=== PATIENT | female | born 1935 | race Caucasian/White ===

== ENCOUNTER 2018-03-03 15:58 | Inpatient (IN) | payer MEDICARE, BC ==
[~2018-03-03] VITALS: Ht 172.7 cm; Wt 89.8 kg
[~2018-03-03 15:58] MED LIST: ALLO300T11 PO; CARV6.253 PO; CLOP75TA33 PO; LYR75C PO; METF500T7 PO; NORCO10T PO; SYN0.025T PO
[2018-03-03] MEDS ORDERED: normal saline 1000ML IV soln IV ONE (16:05)
[2018-03-03] MEDS ORDERED: morphine 4 MG/ML inj SYRINge IV ONE ×2 (17:10→18:45)
[2018-03-03] MEDS ORDERED: ondansetron/PF 4mg/2ml inj IV ONE (17:10)
[2018-03-03 17:11] LABS: BASOPHILS % (AUTO) 0 % (0-1); EOSINOPHILS % (AUTO) 0 % (0-6); HEMATOCRIT 39.4 % (35.0-45.0); HEMOGLOBIN 13.4 g/dl (12.0-16.0); LYMPHOCYTES # (AUTO) 1.3 X10'3 (1.1-4.8); MEAN CORPUSCULAR HEMOGLOBIN 29.1 PG (27.0-31.0); MEAN CORPUSCULAR HGB CONC 34.1 % (33.0-36.5); MEAN CORPUSCULAR VOLUME 85.4 FL (78-98); MEAN PLATELET VOLUME 8.7 FL (7.4-10.4); MONOCYTES # (AUTO) 0.7 X10'3 (0-0.9); MONOCYTES % (AUTO) 5.6 % (2-12); NEUTROPHILS # (AUTO) 10.6 X10'3 (1.8-7.7); NEUTROPHILS % (AUTO) 84.4 % (42-75); PLATELET COUNT 275 X10'3 (140-440); RED BLOOD COUNT 4.61 X10'6 (4.20-5.60); RED CELL DISTRIBUTION WIDTH 15.7 % (11.5-14.5); WHITE BLOOD COUNT 12.6 X10'3 (4.5-11.0)
[2018-03-03 17:15] LABS: PARTIAL THROMBOPLASTIN TIME 28 SECONDS (22-32); PROTHROMBIN TIME 10.8 SECONDS (9.0-12.0)
[2018-03-03 17:22] LABS: ALANINE AMINOTRANSFERASE 26 U/L (12-78); ALBUMIN 3.3 G/DL (3.4-5.0); ALBUMIN/GLOBULIN RATIO 0.8 (1.1-1.5); ALKALINE PHOSPHATASE 86 IU/L (46-116); ANION GAP 14 (8-16); ASPARTATE AMINO TRANSFERASE 36 U/L (10-37); BILIRUBIN,TOTAL 0.9 MG/DL (0.1-1.0); BLOOD UREA NITROGEN 23 MG/DL (7-18); CALCIUM 9.3 MG/DL (8.5-10.1); CHLORIDE 105 MMOL/L (99-107); CREATINE KINASE 763 U/L (26-192); GLUCOSE 275 MG/DL (70-104); MAGNESIUM 1.5 MG/DL (1.5-2.4); POTASSIUM 3.4 MMOL/L (3.5-5.1); SODIUM 143 MMOL/L (135-145); TOTAL CARBON DIOXIDE 24.4 MMOL/L (24-32); TOTAL PROTEIN 7.3 G/DL (6.4-8.2); eGFR 53 ML/MIN
[2018-03-03 17:38] LABS: CLARITY,URINE CLEAR (Clear); COLOR,URINE YELLOW (Yellow); GLUCOSE, URINE 250 mg/dl (Neg); KETONES,URINE 40 mg/dl (Neg); LEUKOCYTE ESTERASE ,URINE NEGATIVE (Neg); NITRITES, URINE NEGATIVE (Neg); OCCULT BLOOD,URINE MODERATE (Neg); PH,URINE 5.5 (4.8-8.0); PROTEIN,URINE 100 mg/dl (Neg); UROBILINOGEN,URINE 0.2 E.U/dL (0.2-1.0)
[2018-03-03 17:45] LABS: UA COLLECTION TYPE FOLEY CATH
[2018-03-03 17:52] LABS: RBC,URINE 0-2 /HPF (0-2); WBC,URINE 0-4 /HPF (0-4)
[2018-03-03 17:53] LABS: AMORPHOUS URATES 1+; BACTERIA,URINE NONE SEEN /HPF (Neg); SQUAMOUS EPITHELIAL CELL,UR FEW /LPF (FEW)
[2018-03-03] MEDS ORDERED: METF500T6 PO (18:12)
[2018-03-03] MEDS ORDERED: CLOP75TA35 PO (18:14)
[2018-03-03] MEDS ORDERED: ACET500C5 PO (18:16)
[2018-03-03] MEDS ORDERED: SIMV20TA5 PO (18:17)
[2018-03-03] MEDS ORDERED: CEPH500C2 PO (18:19)
[2018-03-03] MEDS ORDERED: LEVO50TA8 PO (18:22)
[2018-03-03] MEDS ORDERED: magnesium hydroxide 30ml (MOM) UD suspension PO PRN (19:35)
[2018-03-03] MEDS ORDERED: mag hydrox/Alum hydrox/simeth 30ml oral suspension PO PRN (19:35)
[2018-03-03] MEDS ORDERED: ondansetron/PF 4mg/2ml inj IV PRN (19:35)
[2018-03-03] MEDS ORDERED: acetaminophen 325mg tablet PO PRN (19:35)
[2018-03-03] MEDS ORDERED: morphine 4 MG/ML inj SYRINge IV PRN (19:35)
[2018-03-03] MEDS ORDERED: MESSAGE TO PHARMACY PO ONE (19:40)
[2018-03-03] MEDS ORDERED: dextrose ORAL solution 15 GM/59 ML bottle PO PRN (19:40)
[2018-03-03] MEDS ORDERED: dextrose 50%-water 50ml dispensing syringe IV PRN ×2 (19:40)
[2018-03-03] MEDS ORDERED: non-formulary drug (Acetaminophen (Mapap) 1 CAP) PO PRN (19:40)
[2018-03-03] MEDS ORDERED: glucagon, human recombinant 1mg kit SUBCUT PRN (19:40)
[2018-03-03] MEDS: normal saline 1000ml 1,000 ML IV SCH (19:44)
[2018-03-03 20:50] VITALS: BP 157/67
[2018-03-03] MEDS: carvedilol 6.25mg tablet PO SCH (21:13)
[2018-03-03] MEDS: atorvastatin 20mg tablet PO SCH (21:13)
[2018-03-03] MEDS: heparin, porcine 5000 units/ml vial SQ SCH (21:13)
[2018-03-03] MEDS: allopurinol 300 MG tablet PO SCH (21:13)
[2018-03-03] MEDS: pregabalin 75mg capsule PO SCH (21:13)
[2018-03-03 22:00] VITALS: BP 123/61
[2018-03-03] MEDS: insulin glargine (Lantus) pen - multi-dose SQ SCH (22:04)
[2018-03-04] MEDS: cephalexin 500mg capsule PO SCH ×3 (00:16→17:28)
[2018-03-04 05:00] VITALS: BP 123/61
[2018-03-04 05:37] LABS: BASOPHILS % (AUTO) 0.3 % (0-1); EOSINOPHILS % (AUTO) 0 % (0-6); HEMATOCRIT 33.8 % (35.0-45.0); HEMOGLOBIN 11.4 g/dl (12.0-16.0); LYMPHOCYTES # (AUTO) 1.4 X10'3 (1.1-4.8); LYMPHOCYTES % (AUTO) 12.6 % (21-51); MEAN CORPUSCULAR HEMOGLOBIN 28.5 PG (27.0-31.0); MEAN CORPUSCULAR HGB CONC 33.7 % (33.0-36.5); MEAN CORPUSCULAR VOLUME 84.7 FL (78-98); MONOCYTES # (AUTO) 0.8 X10'3 (0-0.9); MONOCYTES % (AUTO) 7.3 % (2-12); NEUTROPHILS # (AUTO) 9.1 X10'3 (1.8-7.7); NEUTROPHILS % (AUTO) 79.8 % (42-75); PLATELET COUNT 227 X10'3 (140-440); RED BLOOD COUNT 3.99 X10'6 (4.20-5.60); RED CELL DISTRIBUTION WIDTH 15.5 % (11.5-14.5); WHITE BLOOD COUNT 11.4 X10'3 (4.5-11.0)
[2018-03-04 05:51] LABS: ALANINE AMINOTRANSFERASE 27 U/L (12-78); ALBUMIN 2.6 G/DL (3.4-5.0); ALBUMIN/GLOBULIN RATIO 0.8 (1.1-1.5); ALKALINE PHOSPHATASE 73 IU/L (46-116); ANION GAP 8 (8-16); ASPARTATE AMINO TRANSFERASE 26 U/L (10-37); BILIRUBIN,TOTAL 0.7 MG/DL (0.1-1.0); BLOOD UREA NITROGEN 27 MG/DL (7-18); BUN/CREATININE RATIO 26.5 (6.6-38.0); CALCIUM 8.3 MG/DL (8.5-10.1); CHLORIDE 110 MMOL/L (99-107); CREATININE 1.02 MG/DL (0.40-0.90); GLUCOSE 255 MG/DL (70-104); POTASSIUM 3.5 MMOL/L (3.5-5.1); SODIUM 144 MMOL/L (135-145); TOTAL CARBON DIOXIDE 26.1 MMOL/L (24-32); eGFR 52 ML/MIN
[2018-03-04 06:06] LABS: HEMOGLOBIN A1C 7.9 % (4.5-6.2)
[2018-03-04] MEDS: clopidogrel 75mg tablet PO SCH (07:36)
[2018-03-04] MEDS: levoTHYROXINE 25mcg tablet PO SCH (07:36)
[2018-03-04] MEDS: heparin, porcine 5000 units/ml vial SQ SCH ×2 (07:37→20:25)
[2018-03-04] MEDS: normal saline 1000ml 1,000 ML IV SCH ×3 (07:54→17:29)
[2018-03-04] MEDS: insulin Lispro (HumaLOG) vial - multi-dose SQ SCH ×3 (09:15→19:19)
[2018-03-04 10:00] VITALS: BP 126/52
[2018-03-04] MEDS ORDERED: normal saline 500ml IV soln 500 ML IV ONE (14:10)
[2018-03-04] MEDS: HYDROcodone/acetaminophen 5mg/325mg tablet PO PRN (17:28)
[2018-03-04 18:00] VITALS: BP 156/66
[2018-03-04] MEDS: lactobacillus rhamnosus 10,000 MMU CELLS/CAPSULE PO SCH (20:24)
[2018-03-04] MEDS: pregabalin 75mg capsule PO SCH (20:24)
[2018-03-04] MEDS: atorvastatin 20mg tablet PO SCH (20:24)
[2018-03-04] MEDS: carvedilol 6.25mg tablet PO SCH (20:24)
[2018-03-04] MEDS: allopurinol 300 MG tablet PO SCH (20:24)
[2018-03-04] MEDS: nystatin 15 GM powder TP SCH (20:25)
[2018-03-04] MEDS: insulin glargine (Lantus) pen - multi-dose SQ SCH (21:14)
[2018-03-04 22:00] VITALS: BP 117/64
[2018-03-05] MEDS: cephalexin 500mg capsule PO SCH ×3 (00:15→16:07)
[2018-03-05] MEDS: normal saline 1000ml 1,000 ML IV SCH ×3 (01:07→17:45)
[2018-03-05 05:00] VITALS: BP 113/38
[2018-03-05 06:41] LABS: ALANINE AMINOTRANSFERASE 48 U/L (12-78); ALBUMIN 2.1 G/DL (3.4-5.0); ALBUMIN/GLOBULIN RATIO 0.7 (1.1-1.5); ALKALINE PHOSPHATASE 101 IU/L (46-116); ANION GAP 9 (8-16); ASPARTATE AMINO TRANSFERASE 52 U/L (10-37); BILIRUBIN,TOTAL 0.6 MG/DL (0.1-1.0); BLOOD UREA NITROGEN 34 MG/DL (7-18); BUN/CREATININE RATIO 28.6 (6.6-38.0); CALCIUM 7.2 MG/DL (8.5-10.1); CHLORIDE 107 MMOL/L (99-107); CREATININE 1.19 MG/DL (0.40-0.90); GLUCOSE 109 MG/DL (70-104); POTASSIUM 3.3 MMOL/L (3.5-5.1); SODIUM 139 MMOL/L (135-145); TOTAL CARBON DIOXIDE 23.3 MMOL/L (24-32); TOTAL PROTEIN 5.2 G/DL (6.4-8.2); eGFR 43 ML/MIN
[2018-03-05 07:22] LABS: HEMOGLOBIN 10.1 g/dl (12.0-16.0); WHITE BLOOD COUNT 8.8 X10'3 (4.5-11.0)
[2018-03-05 07:23] LABS: BASOPHILS % (AUTO) 0.4 % (0-1); EOSINOPHILS # (AUTO) 0.3 X10'3 (0-0.9); EOSINOPHILS % (AUTO) 3.5 % (0-6); HEMATOCRIT 30.3 % (35.0-45.0); LYMPHOCYTES % (AUTO) 22.5 % (21-51); MEAN CORPUSCULAR HEMOGLOBIN 28.8 PG (27.0-31.0); MEAN CORPUSCULAR HGB CONC 33.3 % (33.0-36.5); MEAN CORPUSCULAR VOLUME 86.5 FL (78-98); MONOCYTES # (AUTO) 0.8 X10'3 (0-0.9); MONOCYTES % (AUTO) 8.6 % (2-12); NEUTROPHILS # (AUTO) 5.7 X10'3 (1.8-7.7); PLATELET COUNT 193 X10'3 (140-440); RED CELL DISTRIBUTION WIDTH 15.7 % (11.5-14.5)
[2018-03-05] MEDS: levoTHYROXINE 25mcg tablet PO SCH (07:50)
[2018-03-05] MEDS: lactobacillus rhamnosus 10,000 MMU CELLS/CAPSULE PO SCH ×2 (07:51→19:59)
[2018-03-05] MEDS: clopidogrel 75mg tablet PO SCH (07:51)
[2018-03-05] MEDS: heparin, porcine 5000 units/ml vial SQ SCH ×2 (07:52→20:00)
[2018-03-05 08:51] LABS: CREATINE KINASE 207 U/L (26-192)
[2018-03-05] MEDS: insulin Lispro (HumaLOG) vial - multi-dose SQ SCH ×3 (09:13→18:56)
[2018-03-05 10:00] VITALS: BP 117/60
[2018-03-05] MEDS: nystatin 15 GM powder TP SCH ×3 (11:07→21:23)
[2018-03-05] MEDS: HYDROcodone/acetaminophen 5mg/325mg tablet PO PRN ×2 (12:22→20:01)
[2018-03-05] MEDS: NUT.TX.GLUC.INTOLER,LAC-FR,REG (BOOST GLUCOSE CONTROL) 237 ML PO SCH ×2 (13:00→18:40)
[2018-03-05 18:00] VITALS: BP 166/86
[2018-03-05] MEDS ORDERED: potassium Cl 40MEQ/NS 500ml 500 ML IV PRN ×2 (18:45)
[2018-03-05] MEDS ORDERED: potassium Cl 20 mEq SR tablet PO PRN (18:45)
[2018-03-05] MEDS ORDERED: magnesium 1gm/100ml D5W IVPB 100 ML IV PRN (18:45)
[2018-03-05] MEDS ORDERED: magnesium Cl slow-release 64mg tablet PO PRN (18:45)
[2018-03-05] MEDS: atorvastatin 20mg tablet PO SCH (19:59)
[2018-03-05] MEDS: carvedilol 6.25mg tablet PO SCH (19:59)
[2018-03-05] MEDS: pregabalin 75mg capsule PO SCH (19:59)
[2018-03-05] MEDS: potassium Cl 20 mEq SR tablet PO PRN (20:02)
[2018-03-05] MEDS: insulin glargine (Lantus) pen - multi-dose SQ SCH (21:25)
[2018-03-05 22:04] VITALS: BP 125/45
[2018-03-06] MEDS: cephalexin 500mg capsule PO SCH ×2 (00:07→07:10)
[2018-03-06] MEDS: potassium Cl 20 mEq SR tablet PO PRN ×2 (00:07→04:32)
[2018-03-06] MEDS: normal saline 1000ml 1,000 ML IV SCH ×4 (00:20→21:12)
[2018-03-06 00:35] LABS: CLARITY,URINE SLIGHTLY CLOUDY (Clear); COLOR,URINE YELLOW (Yellow); GLUCOSE, URINE NEGATIVE (Neg); KETONES,URINE NEGATIVE (Neg); LEUKOCYTE ESTERASE ,URINE SMALL (Neg); NITRITES, URINE NEGATIVE (Neg); OCCULT BLOOD,URINE LARGE (Neg); PROTEIN,URINE 30 mg/dl (Neg)
[2018-03-06 00:43] LABS: UA COLLECTION TYPE FOLEY CATH
[2018-03-06 00:44] LABS: BACTERIA,URINE FEW /HPF (Neg); RENAL CELLS, URINE FEW /HPF; SQUAMOUS EPITHELIAL CELL,UR FEW /LPF (FEW); WBC,URINE 30-50 /HPF (0-4)
[2018-03-06 05:25] LABS: BASOPHILS % (AUTO) 0.3 % (0-1); EOSINOPHILS # (AUTO) 0.3 X10'3 (0-0.9); EOSINOPHILS % (AUTO) 3.2 % (0-6); HEMATOCRIT 34.2 % (35.0-45.0); HEMOGLOBIN 11.4 g/dl (12.0-16.0); LYMPHOCYTES # (AUTO) 1.5 X10'3 (1.1-4.8); LYMPHOCYTES % (AUTO) 18.4 % (21-51); MEAN CORPUSCULAR HEMOGLOBIN 28.5 PG (27.0-31.0); MEAN CORPUSCULAR HGB CONC 33.4 % (33.0-36.5); MEAN CORPUSCULAR VOLUME 85.4 FL (78-98); MEAN PLATELET VOLUME 9.3 FL (7.4-10.4); MONOCYTES # (AUTO) 0.7 X10'3 (0-0.9); NEUTROPHILS # (AUTO) 5.6 X10'3 (1.8-7.7); NEUTROPHILS % (AUTO) 69.1 % (42-75); PLATELET COUNT 205 X10'3 (140-440); RED BLOOD COUNT 4.01 X10'6 (4.20-5.60); RED CELL DISTRIBUTION WIDTH 15.6 % (11.5-14.5); WHITE BLOOD COUNT 8.1 X10'3 (4.5-11.0)
[2018-03-06 06:00] VITALS: BP 157/79
[2018-03-06 06:48] LABS: ALANINE AMINOTRANSFERASE 55 U/L (12-78); ALBUMIN 2.2 G/DL (3.4-5.0); ALBUMIN/GLOBULIN RATIO 0.6 (1.1-1.5); ALKALINE PHOSPHATASE 171 IU/L (46-116); ANION GAP 10 (8-16); ASPARTATE AMINO TRANSFERASE 52 U/L (10-37); BILIRUBIN,TOTAL 0.5 MG/DL (0.1-1.0); BLOOD UREA NITROGEN 31 MG/DL (7-18); BUN/CREATININE RATIO 27.9 (6.6-38.0); CALCIUM 7.8 MG/DL (8.5-10.1); CHLORIDE 107 MMOL/L (99-107); CREATININE 1.11 MG/DL (0.40-0.90); GLUCOSE 132 MG/DL (70-104); MAGNESIUM 1.5 MG/DL (1.5-2.4); POTASSIUM 3.9 MMOL/L (3.5-5.1); SODIUM 140 MMOL/L (135-145); TOTAL CARBON DIOXIDE 23.1 MMOL/L (24-32); TOTAL PROTEIN 5.7 G/DL (6.4-8.2); eGFR 47 ML/MIN
[2018-03-06] MEDS: clopidogrel 75mg tablet PO SCH (07:09)
[2018-03-06] MEDS: lactobacillus rhamnosus 10,000 MMU CELLS/CAPSULE PO SCH ×2 (07:09→19:53)
[2018-03-06] MEDS: heparin, porcine 5000 units/ml vial SQ SCH ×2 (07:10→19:54)
[2018-03-06] MEDS: levoTHYROXINE 25mcg tablet PO SCH (07:10)
[2018-03-06] MEDS: nystatin 15 GM powder TP SCH ×3 (07:10→21:12)
[2018-03-06] MEDS: NUT.TX.GLUC.INTOLER,LAC-FR,REG (BOOST GLUCOSE CONTROL) 237 ML PO SCH ×3 (08:47→18:00)
[2018-03-06] MEDS: insulin Lispro (HumaLOG) vial - multi-dose SQ SCH ×3 (08:49→19:03)
[2018-03-06] MEDS: HYDROcodone/acetaminophen 5mg/325mg tablet PO PRN ×4 (10:24→22:34)
[2018-03-06] MEDS: benzocaine/menthol oral lozeng 1 EACH BOX MM PRN ×2 (17:46→19:52)
[2018-03-06 18:00] VITALS: BP 188/86
[2018-03-06 20:52] VITALS: BP 144/44
[2018-03-06] MEDS: carvedilol 6.25mg tablet PO SCH (21:00)
[2018-03-06] MEDS: atorvastatin 20mg tablet PO SCH (21:00)
[2018-03-06] MEDS: pregabalin 75mg capsule PO SCH (21:00)
[2018-03-06] MEDS: insulin glargine (Lantus) pen - multi-dose SQ SCH (21:10)
[2018-03-06 22:00] VITALS: BP 140/57
[2018-03-07] MEDS: normal saline 1000ml 1,000 ML IV SCH (03:29)
[2018-03-07 05:03] LABS: BASOPHILS % (AUTO) 0.7 % (0-1); EOSINOPHILS # (AUTO) 0.3 X10'3 (0-0.9); EOSINOPHILS % (AUTO) 3.5 % (0-6); HEMATOCRIT 33.4 % (35.0-45.0); LYMPHOCYTES % (AUTO) 26.2 % (21-51); MEAN CORPUSCULAR HEMOGLOBIN 28.3 PG (27.0-31.0); MEAN CORPUSCULAR HGB CONC 33.1 % (33.0-36.5); MEAN CORPUSCULAR VOLUME 85.5 FL (78-98); MEAN PLATELET VOLUME 9.3 FL (7.4-10.4); MONOCYTES # (AUTO) 0.7 X10'3 (0-0.9); MONOCYTES % (AUTO) 9.7 % (2-12); NEUTROPHILS # (AUTO) 4.5 X10'3 (1.8-7.7); NEUTROPHILS % (AUTO) 59.9 % (42-75); PLATELET COUNT 249 X10'3 (140-440); RED CELL DISTRIBUTION WIDTH 15.2 % (11.5-14.5); WHITE BLOOD COUNT 7.6 X10'3 (4.5-11.0)
[2018-03-07] MEDS: HYDROcodone/acetaminophen 5mg/325mg tablet PO PRN ×3 (05:28→21:09)
[2018-03-07 05:47] LABS: ALANINE AMINOTRANSFERASE 53 U/L (12-78); ALBUMIN 2.1 G/DL (3.4-5.0); ALBUMIN/GLOBULIN RATIO 0.6 (1.1-1.5); ALKALINE PHOSPHATASE 196 IU/L (46-116); ANION GAP 8 (8-16); ASPARTATE AMINO TRANSFERASE 45 U/L (10-37); BILIRUBIN,TOTAL 0.5 MG/DL (0.1-1.0); BLOOD UREA NITROGEN 22 MG/DL (7-18); BUN/CREATININE RATIO 27.8 (6.6-38.0); CALCIUM 7.9 MG/DL (8.5-10.1); CHLORIDE 108 MMOL/L (99-107); CREATININE 0.79 MG/DL (0.40-0.90); GLUCOSE 108 MG/DL (70-104); MAGNESIUM 1.6 MG/DL (1.5-2.4); POTASSIUM 3.7 MMOL/L (3.5-5.1); SODIUM 140 MMOL/L (135-145); TOTAL CARBON DIOXIDE 24.1 MMOL/L (24-32); TOTAL PROTEIN 5.7 G/DL (6.4-8.2); eGFR 70 ML/MIN
[2018-03-07 06:00] VITALS: BP 152/81
[2018-03-07] MEDS: lactobacillus rhamnosus 10,000 MMU CELLS/CAPSULE PO SCH ×2 (08:22→20:15)
[2018-03-07] MEDS: clopidogrel 75mg tablet PO SCH (08:22)
[2018-03-07] MEDS: NUT.TX.GLUC.INTOLER,LAC-FR,REG (BOOST GLUCOSE CONTROL) 237 ML PO SCH ×3 (08:23→18:00)
[2018-03-07] MEDS: heparin, porcine 5000 units/ml vial SQ SCH ×2 (08:23→20:15)
[2018-03-07] MEDS: nystatin 15 GM powder TP SCH ×3 (08:23→20:15)
[2018-03-07] MEDS: levoTHYROXINE 25mcg tablet PO SCH (08:24)
[2018-03-07] MEDS: insulin Lispro (HumaLOG) vial - multi-dose SQ SCH ×3 (09:06→19:37)
[2018-03-07 10:00] VITALS: BP 179/84
[2018-03-07] MEDS: benzocaine/menthol oral lozeng 1 EACH BOX MM PRN (11:22)
[2018-03-07] MEDS ORDERED: BENZ1LOZ30 MM (15:30)
[2018-03-07 18:17] VITALS: BP 171/70
[2018-03-07] MEDS: carvedilol 6.25mg tablet PO SCH (20:14)
[2018-03-07] MEDS: atorvastatin 20mg tablet PO SCH (20:14)
[2018-03-07] MEDS: pregabalin 75mg capsule PO SCH (20:15)
[2018-03-07] MEDS: insulin glargine (Lantus) pen - multi-dose SQ SCH (21:06)
[2018-03-07 22:14] VITALS: BP 155/62
[2018-03-08] MEDS: HYDROcodone/acetaminophen 5mg/325mg tablet PO PRN ×2 (04:49→14:06)
[2018-03-08 05:55] LABS: BASOPHILS % (AUTO) 0.5 % (0-1); EOSINOPHILS # (AUTO) 0.3 X10'3 (0-0.9); EOSINOPHILS % (AUTO) 3.7 % (0-6); HEMATOCRIT 34.6 % (35.0-45.0); HEMOGLOBIN 11.7 g/dl (12.0-16.0); LYMPHOCYTES # (AUTO) 1.9 X10'3 (1.1-4.8); LYMPHOCYTES % (AUTO) 23.8 % (21-51); MEAN CORPUSCULAR HEMOGLOBIN 28.7 PG (27.0-31.0); MEAN CORPUSCULAR HGB CONC 33.9 % (33.0-36.5); MEAN CORPUSCULAR VOLUME 84.6 FL (78-98); MONOCYTES # (AUTO) 0.8 X10'3 (0-0.9); MONOCYTES % (AUTO) 10.1 % (2-12); NEUTROPHILS # (AUTO) 4.8 X10'3 (1.8-7.7); NEUTROPHILS % (AUTO) 61.9 % (42-75); PLATELET COUNT 281 X10'3 (140-440); RED BLOOD COUNT 4.09 X10'6 (4.20-5.60); RED CELL DISTRIBUTION WIDTH 15.1 % (11.5-14.5); WHITE BLOOD COUNT 7.8 X10'3 (4.5-11.0)
[2018-03-08 06:00] VITALS: BP 185/78
[2018-03-08 06:14] LABS: ALANINE AMINOTRANSFERASE 48 U/L (12-78); ALBUMIN 2.2 G/DL (3.4-5.0); ALBUMIN/GLOBULIN RATIO 0.6 (1.1-1.5); ALKALINE PHOSPHATASE 214 IU/L (46-116); ANION GAP 8 (8-16); ASPARTATE AMINO TRANSFERASE 29 U/L (10-37); BILIRUBIN,TOTAL 0.4 MG/DL (0.1-1.0); BLOOD UREA NITROGEN 16 MG/DL (7-18); CALCIUM 8.1 MG/DL (8.5-10.1); CHLORIDE 107 MMOL/L (99-107); GLUCOSE 109 MG/DL (70-104); MAGNESIUM 1.6 MG/DL (1.5-2.4); POTASSIUM 3.7 MMOL/L (3.5-5.1); SODIUM 140 MMOL/L (135-145); TOTAL CARBON DIOXIDE 24.8 MMOL/L (24-32); TOTAL PROTEIN 5.9 G/DL (6.4-8.2); eGFR 69 ML/MIN
[2018-03-08] MEDS: lactobacillus rhamnosus 10,000 MMU CELLS/CAPSULE PO SCH ×2 (07:24→20:59)
[2018-03-08] MEDS: clopidogrel 75mg tablet PO SCH (07:24)
[2018-03-08] MEDS: levoTHYROXINE 25mcg tablet PO SCH (07:24)
[2018-03-08] MEDS: heparin, porcine 5000 units/ml vial SQ SCH ×2 (07:25→20:59)
[2018-03-08] MEDS: NUT.TX.GLUC.INTOLER,LAC-FR,REG (BOOST GLUCOSE CONTROL) 237 ML PO SCH ×3 (08:13→15:46)
[2018-03-08] MEDS: nystatin 15 GM powder TP SCH ×3 (08:13→21:05)
[2018-03-08 11:40] VITALS: BP 133/85
[2018-03-08] MEDS: insulin Lispro (HumaLOG) vial - multi-dose SQ SCH ×2 (13:34→19:09)
[2018-03-08 18:33] VITALS: BP 109/73
[2018-03-08] MEDS: atorvastatin 20mg tablet PO SCH (20:44)
[2018-03-08] MEDS: pregabalin 75mg capsule PO SCH (20:59)
[2018-03-08] MEDS: carvedilol 6.25mg tablet PO SCH (20:59)
[2018-03-08] MEDS: insulin glargine (Lantus) pen - multi-dose SQ SCH (21:05)
[2018-03-08] MEDS: benzocaine/menthol oral lozeng 1 EACH BOX MM PRN (21:06)
[2018-03-09 05:00] VITALS: BP 154/70
[2018-03-09 06:07] LABS: MAGNESIUM 1.6 MG/DL (1.5-2.4); POTASSIUM 3.6 MMOL/L (3.5-5.1)
[2018-03-09] MEDS: NUT.TX.GLUC.INTOLER,LAC-FR,REG (BOOST GLUCOSE CONTROL) 237 ML PO SCH ×3 (08:00→18:11)
[2018-03-09] MEDS: lactobacillus rhamnosus 10,000 MMU CELLS/CAPSULE PO SCH ×2 (09:04→20:48)
[2018-03-09] MEDS: nystatin 15 GM powder TP SCH ×3 (09:05→20:48)
[2018-03-09] MEDS: clopidogrel 75mg tablet PO SCH (09:05)
[2018-03-09] MEDS: HYDROcodone/acetaminophen 5mg/325mg tablet PO PRN ×3 (09:05→21:21)
[2018-03-09] MEDS: heparin, porcine 5000 units/ml vial SQ SCH ×2 (09:06→20:48)
[2018-03-09] MEDS: levoTHYROXINE 25mcg tablet PO SCH (09:12)
[2018-03-09] MEDS: insulin Lispro (HumaLOG) vial - multi-dose SQ SCH ×3 (09:51→18:55)
[2018-03-09 10:00] VITALS: BP 168/59
[2018-03-09 18:00] VITALS: BP 165/54
[2018-03-09] MEDS: atorvastatin 20mg tablet PO SCH (20:13)
[2018-03-09] MEDS: pregabalin 75mg capsule PO SCH (20:48)
[2018-03-09] MEDS: carvedilol 6.25mg tablet PO SCH (20:48)
[2018-03-09] MEDS: insulin glargine (Lantus) pen - multi-dose SQ SCH (20:53)
[2018-03-09] MEDS: dextrose ORAL solution 15 GM/59 ML bottle PO PRN ×2 (20:54→21:15)
[2018-03-09] MEDS: benzocaine/menthol oral lozeng 1 EACH BOX MM PRN (21:15)
[2018-03-09 22:15] VITALS: BP 141/56
[2018-03-10 05:00] VITALS: BP 155/69
[2018-03-10 05:59] LABS: MAGNESIUM 1.5 MG/DL (1.5-2.4); POTASSIUM 3.4 MMOL/L (3.5-5.1)
[2018-03-10] MEDS: lactobacillus rhamnosus 10,000 MMU CELLS/CAPSULE PO SCH (07:52)
[2018-03-10] MEDS: levoTHYROXINE 25mcg tablet PO SCH (07:52)
[2018-03-10] MEDS: clopidogrel 75mg tablet PO SCH (07:52)
[2018-03-10] MEDS: heparin, porcine 5000 units/ml vial SQ SCH (07:58)
[2018-03-10] MEDS: NUT.TX.GLUC.INTOLER,LAC-FR,REG (BOOST GLUCOSE CONTROL) 237 ML PO SCH (08:00)
[2018-03-10] MEDS: nystatin 15 GM powder TP SCH ×2 (08:00→13:23)
[2018-03-10] MEDS: HYDROcodone/acetaminophen 5mg/325mg tablet PO PRN ×3 (08:02→16:57)
[2018-03-10 10:00] VITALS: BP 177/70
[2018-03-10] MEDS: insulin Lispro (HumaLOG) vial - multi-dose SQ SCH ×2 (10:15→12:54)
== END 2018-03-10 17:00 | DRG 682 ==
LOC: ER 15:58 → ED HOLD 19:35 → ORTHO 4S 20:40
PROVIDERS: ADMIT Internal Medicine; ATTEND Family Medicine
DX: N17.9 Acute kidney failure, unspecified (principal); G93.40 Encephalopathy, unspecified; L03.116 Cellulitis of left lower limb; M62.82 Rhabdomyolysis; E78.00 Pure hypercholesterolemia, unspecified; G89.29 Other chronic pain; M19.90 Unspecified osteoarthritis, unspecified site; M25.561 Pain in right knee; M25.562 Pain in left knee; E03.9 Hypothyroidism, unspecified; R09.02 Hypoxemia; I10 Essential (primary) hypertension; W01.0XXA Fall on same level from slipping, tripping and stumbling without subsequent striking against object, initial encounter; E11.9 Type 2 diabetes mellitus without complications; E86.0 Dehydration; I25.10 Atherosclerotic heart disease of native coronary artery without angina pectoris; J04.0 Acute laryngitis; M10.9 Gout, unspecified; M79.7 Fibromyalgia; Z60.2 Problems related to living alone; Z99.3 Dependence on wheelchair; Z90.49 Acquired absence of other specified parts of digestive tract; Z88.1 Allergy status to other antibiotic agents; Z88.6 Allergy status to analgesic agent; Z79.84 Long term (current) use of oral hypoglycemic drugs; Z79.02 Long term (current) use of antithrombotics/antiplatelets; Z79.899 Other long term (current) drug therapy; Z87.891 Personal history of nicotine dependence; Z86.73 Personal history of transient ischemic attack (TIA), and cerebral infarction without residual deficits; Z81.8 Family history of other mental and behavioral disorders; Y93.89 Activity, other specified; Y92.091 Bathroom in other non-institutional residence as the place of occurrence of the external cause; Y99.8 Other external cause status
CPT/HCPCS: 36415; 70450; 70490; 70544; 70551; 71045; 72125; 72170; 73560; 76775; 80053; 81001; 82550; 82607; 82948; 83036; 83605; 83735; 84132; 84145; 84443; 85025; 85610; 85730; 87040; 87070; 93005; 96361; 96374; 96375; 96376; 97110; 97162; 97530; 99285; A4315; A4353; A4565; A6209; A6212; A6213; J1644; J1815; J2270; J2405; J7030

== ENCOUNTER 2018-03-25 17:00 | Inpatient (IN) | payer MEDICARE, BC ==
[~2018-03-25] VITALS: Ht 152.4 cm; Wt 118.2 kg
[~2018-03-25 17:00] MED LIST changes: +ACET500C5 PO; +BENZ1LOZ30 MM; -CLOP75TA33 PO; +CLOP75TA35 PO; +LEVO50TA8 PO; +METF500T6 PO; -METF500T7 PO; -NORCO10T PO; +SIMV20TA5 PO; -SYN0.025T PO
[2018-03-25] MEDS ORDERED: normal saline 1000ml 1,000 ML IV ONE ×2 (18:36→19:30)
[2018-03-25 19:07] LABS: BASOPHILS % (AUTO) 0 % (0-1); EOSINOPHILS # (AUTO) 0.3 X10'3 (0-0.9); HEMATOCRIT 41.6 % (35.0-45.0); LYMPHOCYTES # (AUTO) 1.6 X10'3 (1.1-4.8); LYMPHOCYTES % (AUTO) 16.8 % (21-51); MEAN CORPUSCULAR HEMOGLOBIN 28.5 PG (27.0-31.0); MEAN CORPUSCULAR HGB CONC 33.5 % (33.0-36.5); MEAN PLATELET VOLUME 8.3 FL (7.4-10.4); MONOCYTES # (AUTO) 0.7 X10'3 (0-0.9); MONOCYTES % (AUTO) 7.2 % (2-12); PLATELET COUNT 273 X10'3 (140-440); RED CELL DISTRIBUTION WIDTH 16.4 % (11.5-14.5); WHITE BLOOD COUNT 9.6 X10'3 (4.5-11.0)
[2018-03-25 19:19] LABS: PARTIAL THROMBOPLASTIN TIME 27 SECONDS (22-32); PROTHROMBIN TIME 10.6 SECONDS (9.0-12.0)
[2018-03-25 19:24] LABS: ALANINE AMINOTRANSFERASE 28 U/L (12-78); ALBUMIN 3.6 G/DL (3.4-5.0); ALBUMIN/GLOBULIN RATIO 0.9 (1.1-1.5); ALKALINE PHOSPHATASE 109 IU/L (46-116); ANION GAP 13 (8-16); ASPARTATE AMINO TRANSFERASE 32 U/L (10-37); BILIRUBIN,TOTAL 0.7 MG/DL (0.1-1.0); BLOOD UREA NITROGEN 12 MG/DL (7-18); BUN/CREATININE RATIO 11.9 (6.6-38.0); CALCIUM 9.3 MG/DL (8.5-10.1); CHLORIDE 100 MMOL/L (99-107); CREATININE 1.01 MG/DL (0.40-0.90); ETHANOL < 0.010 GM/DL (0.0-0.010); GLUCOSE 133 MG/DL (70-104); LIPASE 137 U/L (73-393); MAGNESIUM 1.4 MG/DL (1.5-2.4); POTASSIUM 3.6 MMOL/L (3.5-5.1); SODIUM 141 MMOL/L (135-145); TOTAL CARBON DIOXIDE 28.1 MMOL/L (24-32); TOTAL PROTEIN 7.7 G/DL (6.4-8.2); eGFR 52 ML/MIN
[2018-03-25] MEDS ORDERED: normal saline 1000ML IV soln IVB ONE (19:30)
[2018-03-25] MEDS ORDERED: PREGABALIN 75 MG (20:15)
[2018-03-25] MEDS ORDERED: METFORMIN HCL 500 MG TABLET (20:15)
[2018-03-25] MEDS ORDERED: SANTYL OINTMENT (20:15)
[2018-03-25] MEDS ORDERED: LISINOPRIL 10 MG TAB (20:15)
[2018-03-25] MEDS ORDERED: CLOPIDOGREL 75 MG TABLET (20:15)
[2018-03-25] MEDS ORDERED: CARVEDILOL (20:15)
[2018-03-25] MEDS ORDERED: temazepam 15mg capsule PO PRN (21:00)
[2018-03-25] MEDS ORDERED: mag hydrox/Alum hydrox/simeth 30ml oral suspension PO PRN (21:35)
[2018-03-25] MEDS ORDERED: magnesium hydroxide 30ml (MOM) UD suspension PO PRN (21:35)
[2018-03-25] MEDS ORDERED: non-formulary drug (Acetaminophen (Mapap) 1 CAP) PO PRN (21:35)
[2018-03-25] MEDS ORDERED: acetaminophen 325mg tablet PO PRN ×2 (21:35)
[2018-03-25] MEDS ORDERED: ondansetron/PF 4mg/2ml inj IV PRN (21:35)
[2018-03-25 22:48] LABS: CLARITY,URINE CLOUDY (Clear); COLOR,URINE YELLOW (Yellow); GLUCOSE, URINE NEGATIVE (Neg); KETONES,URINE 40 mg/dl (Neg); LEUKOCYTE ESTERASE ,URINE LARGE (Neg); NITRITES, URINE POSITIVE (Neg); OCCULT BLOOD,URINE SMALL (Neg); PROTEIN,URINE TRACE mg/dl (Neg); UROBILINOGEN,URINE 0.2 E.U/dL (0.2-1.0)
[2018-03-25 23:03] LABS: UA COLLECTION TYPE STRAIGHT CATH; WBC,URINE TNTC /HPF (0-4)
[2018-03-25 23:04] LABS: BACTERIA,URINE 4+ /HPF (Neg); SQUAMOUS EPITHELIAL CELL,UR FEW /LPF (FEW)
[2018-03-25] MEDS ORDERED: CefTRIAXone/D5W-Rocephin 1gm 50 ML IV SCH (23:20)
[2018-03-25] MEDS ORDERED: CefTRIAXone 2gm/D5W 50ml 50 ML IV ONE (23:30)
[2018-03-25 23:50] VITALS: BP 190/71
[2018-03-26] MEDS: carvedilol 6.25mg tablet PO SCH ×2 (00:11→20:05)
[2018-03-26] MEDS: CefTRIAXone/D5W-Rocephin 1gm 50 ML IV SCH ×2 (00:12→07:42)
[2018-03-26 07:10] VITALS: BP 181/72
[2018-03-26] MEDS: levoTHYROXINE 25mcg tablet PO SCH (07:38)
[2018-03-26] MEDS: clopidogrel 75mg tablet PO SCH (07:38)
[2018-03-26] MEDS: metFORMIN 500mg tablet PO SCH ×3 (07:43→16:59)
[2018-03-26] MEDS: HYDROcodone/acetaminophen 10/325mg tab PO PRN (11:01)
[2018-03-26 11:29] VITALS: BP 191/68
[2018-03-26] MEDS ORDERED: MESSAGE TO PHARMACY PO ONE (17:10)
[2018-03-26] MEDS ORDERED: glucagon, human recombinant 1mg kit SUBCUT PRN (17:10)
[2018-03-26] MEDS ORDERED: dextrose ORAL solution 15 GM/59 ML bottle PO PRN (17:10)
[2018-03-26 18:30] VITALS: BP 170/62
[2018-03-26] MEDS: atorvastatin 10mg tablet PO SCH (20:05)
[2018-03-26] MEDS: allopurinol 300 MG tablet PO SCH (20:05)
[2018-03-26] MEDS: HYDROcodone/acetaminophen 5mg/325mg tablet PO PRN (20:06)
[2018-03-26] MEDS: lactobacillus rhamnosus 10,000 MMU CELLS/CAPSULE PO SCH (20:06)
[2018-03-26] MEDS: mineral oil/petrolatum, white cream 113gm jar TP SCH (20:06)
[2018-03-26] MEDS: heparin, porcine 5000 units/ml vial SQ SCH (20:07)
[2018-03-26] MEDS: pregabalin 75mg capsule PO SCH (20:16)
[2018-03-26] MEDS ORDERED: carvedilol 6.25mg tablet PO SCH (21:00)
[2018-03-26] MEDS: insulin glargine (Lantus) pen - multi-dose SQ SCH (21:00)
[2018-03-27] VITALS: BP 124/67
[2018-03-27 07:00] VITALS: BP 181/73
[2018-03-27] MEDS: lactobacillus rhamnosus 10,000 MMU CELLS/CAPSULE PO SCH ×2 (07:41→21:11)
[2018-03-27] MEDS: clopidogrel 75mg tablet PO SCH (07:41)
[2018-03-27] MEDS: levoTHYROXINE 25mcg tablet PO SCH (07:42)
[2018-03-27] MEDS: heparin, porcine 5000 units/ml vial SQ SCH ×2 (07:42→21:14)
[2018-03-27] MEDS: CefTRIAXone/D5W-Rocephin 1gm 50 ML IV SCH (07:42)
[2018-03-27] MEDS: mineral oil/petrolatum, white cream 113gm jar TP SCH ×2 (07:42→21:19)
[2018-03-27] MEDS: HYDROcodone/acetaminophen 5mg/325mg tablet PO PRN ×3 (07:42→21:11)
[2018-03-27 12:00] VITALS: BP 164/66
[2018-03-27 20:00] VITALS: BP 141/60
[2018-03-27] MEDS: atorvastatin 10mg tablet PO SCH (21:00)
[2018-03-27] MEDS: insulin glargine (Lantus) pen - multi-dose SQ SCH (21:00)
[2018-03-27] MEDS: pregabalin 75mg capsule PO SCH (21:11)
[2018-03-27] MEDS: carvedilol 6.25mg tablet PO SCH (21:11)
[2018-03-27] MEDS: allopurinol 300 MG tablet PO SCH (21:11)
[2018-03-28] VITALS: BP 179/77
[2018-03-28 07:15] VITALS: BP 198/60
[2018-03-28] MEDS: HYDROcodone/acetaminophen 10/325mg tab PO PRN ×2 (09:18→20:09)
[2018-03-28] MEDS: mineral oil/petrolatum, white cream 113gm jar TP SCH ×2 (09:18→20:00)
[2018-03-28] MEDS: levoTHYROXINE 25mcg tablet PO SCH (09:19)
[2018-03-28] MEDS: lactobacillus rhamnosus 10,000 MMU CELLS/CAPSULE PO SCH ×2 (09:19→19:58)
[2018-03-28] MEDS: clopidogrel 75mg tablet PO SCH (09:19)
[2018-03-28] MEDS: cefTRIAXone 1g/NS 100ml IVPB 100 ML IV SCH (09:20)
[2018-03-28] MEDS: heparin, porcine 5000 units/ml vial SQ SCH ×2 (09:20→19:58)
[2018-03-28 10:07] VITALS: BP 111/60
[2018-03-28] MEDS: insulin Lispro (HumaLOG) vial - multi-dose SQ SCH ×2 (10:36→14:31)
[2018-03-28 11:38] VITALS: BP 137/65
[2018-03-28 19:10] VITALS: BP 160/78
[2018-03-28] MEDS: atorvastatin 10mg tablet PO SCH (21:00)
[2018-03-28] MEDS: pregabalin 75mg capsule PO SCH (21:51)
[2018-03-28] MEDS: carvedilol 6.25mg tablet PO SCH (21:51)
[2018-03-28] MEDS: allopurinol 300 MG tablet PO SCH (21:51)
[2018-03-28] MEDS: insulin glargine (Lantus) pen - multi-dose SQ SCH (21:52)
[2018-03-29] VITALS: BP 102/57
[2018-03-29 07:52] VITALS: BP 171/68
[2018-03-29] MEDS: cefTRIAXone 1g/NS 100ml IVPB 100 ML IV SCH (08:31)
[2018-03-29] MEDS: lactobacillus rhamnosus 10,000 MMU CELLS/CAPSULE PO SCH ×2 (08:32→20:09)
[2018-03-29] MEDS: clopidogrel 75mg tablet PO SCH (08:32)
[2018-03-29] MEDS: mineral oil/petrolatum, white cream 113gm jar TP SCH ×2 (08:32→20:00)
[2018-03-29] MEDS: heparin, porcine 5000 units/ml vial SQ SCH ×2 (08:32→20:23)
[2018-03-29] MEDS: levoTHYROXINE 25mcg tablet PO SCH (08:32)
[2018-03-29] MEDS: insulin Lispro (HumaLOG) vial - multi-dose SQ SCH ×3 (08:42→18:57)
[2018-03-29 09:08] VITALS: BP 139/54
[2018-03-29 11:52] VITALS: BP 137/59
[2018-03-29 19:00] VITALS: BP 101/69
[2018-03-29] MEDS: carvedilol 6.25mg tablet PO SCH (20:00)
[2018-03-29] MEDS: pregabalin 75mg capsule PO SCH (20:09)
[2018-03-29] MEDS: atorvastatin 10mg tablet PO SCH (20:09)
[2018-03-29] MEDS: allopurinol 300 MG tablet PO SCH (20:09)
[2018-03-29] MEDS: insulin glargine (Lantus) pen - multi-dose SQ SCH (21:06)
[2018-03-30] VITALS: BP 108/62
[2018-03-30 07:21] VITALS: BP 165/74
[2018-03-30] MEDS: levoTHYROXINE 25mcg tablet PO SCH (08:23)
[2018-03-30] MEDS: carvedilol 6.25mg tablet PO SCH ×2 (08:23→19:14)
[2018-03-30] MEDS: mineral oil/petrolatum, white cream 113gm jar TP SCH ×2 (08:23→20:05)
[2018-03-30] MEDS: lactobacillus rhamnosus 10,000 MMU CELLS/CAPSULE PO SCH ×2 (08:23→19:14)
[2018-03-30] MEDS: clopidogrel 75mg tablet PO SCH (08:23)
[2018-03-30] MEDS: cefTRIAXone 1g/NS 100ml IVPB 100 ML IV SCH (08:24)
[2018-03-30] MEDS: heparin, porcine 5000 units/ml vial SQ SCH ×2 (08:24→19:13)
[2018-03-30] MEDS: insulin Lispro (HumaLOG) vial - multi-dose SQ SCH ×3 (08:41→18:42)
[2018-03-30 11:16] VITALS: BP 130/68
[2018-03-30 18:00] VITALS: BP 131/54
[2018-03-30] MEDS: pregabalin 75mg capsule PO SCH (20:05)
[2018-03-30] MEDS: allopurinol 300 MG tablet PO SCH (20:05)
[2018-03-30] MEDS: atorvastatin 10mg tablet PO SCH (20:09)
[2018-03-30] MEDS: insulin glargine (Lantus) pen - multi-dose SQ SCH (21:19)
[2018-03-30] MEDS: HYDROcodone/acetaminophen 5mg/325mg tablet PO PRN (22:08)
[2018-03-31] VITALS: BP 128/75
[2018-03-31 07:24] VITALS: BP 138/68
[2018-03-31] MEDS: mineral oil/petrolatum, white cream 113gm jar TP SCH ×2 (09:23→20:42)
[2018-03-31] MEDS: cefTRIAXone 1g/NS 100ml IVPB 100 ML IV SCH (09:23)
[2018-03-31] MEDS: carvedilol 6.25mg tablet PO SCH ×2 (09:24→20:26)
[2018-03-31] MEDS: levoTHYROXINE 25mcg tablet PO SCH (09:25)
[2018-03-31] MEDS: clopidogrel 75mg tablet PO SCH (09:25)
[2018-03-31] MEDS: lactobacillus rhamnosus 10,000 MMU CELLS/CAPSULE PO SCH ×2 (09:26→20:27)
[2018-03-31] MEDS: heparin, porcine 5000 units/ml vial SQ SCH ×2 (09:28→20:27)
[2018-03-31] MEDS: insulin Lispro (HumaLOG) vial - multi-dose SQ SCH ×3 (09:32→18:56)
[2018-03-31 11:30] VITALS: BP 121/54
[2018-03-31 20:00] VITALS: BP 138/41
[2018-03-31] MEDS: atorvastatin 10mg tablet PO SCH (20:26)
[2018-03-31] MEDS: allopurinol 300 MG tablet PO SCH (20:27)
[2018-03-31] MEDS: pregabalin 75mg capsule PO SCH (20:28)
[2018-03-31] MEDS: HYDROcodone/acetaminophen 5mg/325mg tablet PO PRN (20:40)
[2018-03-31] MEDS: insulin glargine (Lantus) pen - multi-dose SQ SCH (21:48)
[2018-04-01] VITALS: BP 145/55
[2018-04-01 07:00] VITALS: BP 187/67
[2018-04-01] MEDS: levoTHYROXINE 25mcg tablet PO SCH (09:03)
[2018-04-01] MEDS: carvedilol 6.25mg tablet PO SCH ×2 (09:03→20:41)
[2018-04-01] MEDS: clopidogrel 75mg tablet PO SCH (09:03)
[2018-04-01] MEDS: cefTRIAXone 1g/NS 100ml IVPB 100 ML IV SCH (09:03)
[2018-04-01] MEDS: heparin, porcine 5000 units/ml vial SQ SCH ×2 (09:04→20:48)
[2018-04-01] MEDS: lactobacillus rhamnosus 10,000 MMU CELLS/CAPSULE PO SCH ×2 (09:04→20:41)
[2018-04-01] MEDS: HYDROcodone/acetaminophen 5mg/325mg tablet PO PRN ×2 (09:04→20:42)
[2018-04-01] MEDS: mineral oil/petrolatum, white cream 113gm jar TP SCH ×2 (09:05→20:48)
[2018-04-01 12:56] VITALS: BP 137/48
[2018-04-01] MEDS: insulin Lispro (HumaLOG) vial - multi-dose SQ SCH ×2 (13:58→19:02)
[2018-04-01 20:00] VITALS: BP 144/76
[2018-04-01] MEDS: pregabalin 75mg capsule PO SCH (20:41)
[2018-04-01] MEDS: allopurinol 300 MG tablet PO SCH (20:42)
[2018-04-01] MEDS: atorvastatin 10mg tablet PO SCH (20:42)
[2018-04-01] MEDS: insulin glargine (Lantus) pen - multi-dose SQ SCH (21:16)
[2018-04-02] VITALS: BP 135/59
[2018-04-02] MEDS: HYDROcodone/acetaminophen 5mg/325mg tablet PO PRN ×2 (00:22→10:31)
[2018-04-02 07:29] VITALS: BP 187/72
[2018-04-02] MEDS: heparin, porcine 5000 units/ml vial SQ SCH ×2 (08:00→20:00)
[2018-04-02 08:43] VITALS: BP 158/59
[2018-04-02] MEDS: cefTRIAXone 1g/NS 100ml IVPB 100 ML IV SCH (09:41)
[2018-04-02] MEDS: carvedilol 6.25mg tablet PO SCH ×2 (09:41→21:17)
[2018-04-02] MEDS: clopidogrel 75mg tablet PO SCH (09:42)
[2018-04-02] MEDS: lactobacillus rhamnosus 10,000 MMU CELLS/CAPSULE PO SCH ×2 (09:42→21:18)
[2018-04-02] MEDS: levoTHYROXINE 25mcg tablet PO SCH (09:43)
[2018-04-02] MEDS: mineral oil/petrolatum, white cream 113gm jar TP SCH ×2 (09:44→21:32)
[2018-04-02] MEDS: insulin Lispro (HumaLOG) vial - multi-dose SQ SCH ×3 (09:50→18:32)
[2018-04-02 11:00] VITALS: BP 156/85
[2018-04-02 18:00] VITALS: BP 158/91
[2018-04-02] MEDS: HYDROcodone/acetaminophen 10/325mg tab PO PRN (18:42)
[2018-04-02] MEDS: atorvastatin 10mg tablet PO SCH (21:00)
[2018-04-02] MEDS: pregabalin 75mg capsule PO SCH (21:17)
[2018-04-02] MEDS: allopurinol 300 MG tablet PO SCH (21:17)
[2018-04-02] MEDS: insulin glargine (Lantus) pen - multi-dose SQ SCH (21:31)
[2018-04-03] VITALS: BP 142/96
[2018-04-03 07:00] VITALS: BP 95/65
[2018-04-03] MEDS: carvedilol 6.25mg tablet PO SCH ×2 (07:01→21:16)
[2018-04-03] MEDS: clopidogrel 75mg tablet PO SCH (07:11)
[2018-04-03] MEDS: lactobacillus rhamnosus 10,000 MMU CELLS/CAPSULE PO SCH ×2 (07:11→21:16)
[2018-04-03] MEDS: levoTHYROXINE 25mcg tablet PO SCH (07:11)
[2018-04-03] MEDS: heparin, porcine 5000 units/ml vial SQ SCH ×2 (07:12→21:18)
[2018-04-03] MEDS: cefTRIAXone 1g/NS 100ml IVPB 100 ML IV SCH (07:14)
[2018-04-03] MEDS: mineral oil/petrolatum, white cream 113gm jar TP SCH ×2 (08:16→21:18)
[2018-04-03] MEDS: insulin Lispro (HumaLOG) vial - multi-dose SQ SCH ×3 (08:50→19:10)
[2018-04-03 11:00] VITALS: BP 148/78
[2018-04-03 19:00] VITALS: BP 121/74
[2018-04-03] MEDS: atorvastatin 10mg tablet PO SCH (21:00)
[2018-04-03] MEDS: allopurinol 300 MG tablet PO SCH (21:16)
[2018-04-03] MEDS: pregabalin 75mg capsule PO SCH (21:17)
[2018-04-03] MEDS: insulin glargine (Lantus) pen - multi-dose SQ SCH (21:24)
[2018-04-04] VITALS: BP 154/55
[2018-04-04] MEDS: HYDROcodone/acetaminophen 10/325mg tab PO PRN (00:18)
[2018-04-04] MEDS: carvedilol 6.25mg tablet PO SCH (07:08)
[2018-04-04 07:09] VITALS: BP 158/50
[2018-04-04] MEDS: levoTHYROXINE 25mcg tablet PO SCH (07:31)
[2018-04-04] MEDS: lactobacillus rhamnosus 10,000 MMU CELLS/CAPSULE PO SCH ×2 (07:31→20:01)
[2018-04-04] MEDS: clopidogrel 75mg tablet PO SCH (07:31)
[2018-04-04] MEDS: heparin, porcine 5000 units/ml vial SQ SCH ×2 (07:32→20:02)
[2018-04-04] MEDS: mineral oil/petrolatum, white cream 113gm jar TP SCH ×2 (07:40→20:02)
[2018-04-04] MEDS: cefTRIAXone 1g/NS 100ml IVPB 100 ML IV SCH (08:06)
[2018-04-04] MEDS: insulin Lispro (HumaLOG) vial - multi-dose SQ SCH ×3 (08:50→18:48)
[2018-04-04 10:42] LABS: BASOPHILS # (AUTO) 0.1 X10'3 (0-0.2); BASOPHILS % (AUTO) 0.9 % (0-1); EOSINOPHILS # (AUTO) 0.3 X10'3 (0-0.9); EOSINOPHILS % (AUTO) 5.3 % (0-6); HEMATOCRIT 35.5 % (35.0-45.0); LYMPHOCYTES # (AUTO) 1.9 X10'3 (1.1-4.8); LYMPHOCYTES % (AUTO) 30.7 % (21-51); MEAN CORPUSCULAR HEMOGLOBIN 28.8 PG (27.0-31.0); MEAN CORPUSCULAR HGB CONC 33.8 % (33.0-36.5); MEAN CORPUSCULAR VOLUME 85.2 FL (78-98); MEAN PLATELET VOLUME 8.4 FL (7.4-10.4); MONOCYTES # (AUTO) 0.6 X10'3 (0-0.9); MONOCYTES % (AUTO) 9.5 % (2-12); NEUTROPHILS # (AUTO) 3.1 X10'3 (1.8-7.7); NEUTROPHILS % (AUTO) 53.6 % (42-75); PLATELET COUNT 214 X10'3 (140-440); RED BLOOD COUNT 4.17 X10'6 (4.20-5.60); RED CELL DISTRIBUTION WIDTH 15.7 % (11.5-14.5)
[2018-04-04 10:51] LABS: ALBUMIN 2.7 G/DL (3.4-5.0); ANION GAP 5 (8-16); BLOOD UREA NITROGEN 12 MG/DL (7-18); BUN/CREATININE RATIO 14.3 (6.6-38.0); CALCIUM 9.3 MG/DL (8.5-10.1); CHLORIDE 103 MMOL/L (99-107); CREATININE 0.84 MG/DL (0.40-0.90); GLUCOSE 171 MG/DL (70-104); POTASSIUM 3.7 MMOL/L (3.5-5.1); SODIUM 139 MMOL/L (135-145); TOTAL CARBON DIOXIDE 31.3 MMOL/L (24-32); eGFR 65 ML/MIN
[2018-04-04 11:36] VITALS: BP 110/62
[2018-04-04] MEDS: carVEDilol 3.125mg tablet PO SCH (20:00)
[2018-04-04] MEDS: allopurinol 300 MG tablet PO SCH (20:59)
[2018-04-04] MEDS: pregabalin 75mg capsule PO SCH (20:59)
[2018-04-04] MEDS: atorvastatin 10mg tablet PO SCH (21:00)
[2018-04-04] MEDS: insulin glargine (Lantus) pen - multi-dose SQ SCH (21:03)
[2018-04-05] MEDS: HYDROcodone/acetaminophen 5mg/325mg tablet PO PRN (00:04)
[2018-04-05 07:19] VITALS: BP 186/67
[2018-04-05] MEDS: carVEDilol 3.125mg tablet PO SCH ×2 (08:10→21:15)
[2018-04-05] MEDS: levoTHYROXINE 25mcg tablet PO SCH (08:10)
[2018-04-05] MEDS: clopidogrel 75mg tablet PO SCH (08:10)
[2018-04-05] MEDS: lactobacillus rhamnosus 10,000 MMU CELLS/CAPSULE PO SCH ×2 (08:11→21:15)
[2018-04-05] MEDS: heparin, porcine 5000 units/ml vial SQ SCH ×2 (08:11→21:16)
[2018-04-05] MEDS: mineral oil/petrolatum, white cream 113gm jar TP SCH ×2 (08:11→21:16)
[2018-04-05] MEDS: insulin Lispro (HumaLOG) vial - multi-dose SQ SCH ×3 (08:23→19:10)
[2018-04-05 09:16] VITALS: BP 139/65
[2018-04-05 11:15] VITALS: BP 150/71
[2018-04-05] MEDS: HYDROcodone/acetaminophen 10/325mg tab PO PRN (11:57)
[2018-04-05 20:00] VITALS: BP 149/72
[2018-04-05] MEDS: insulin glargine (Lantus) pen - multi-dose SQ SCH (21:11)
[2018-04-05] MEDS: allopurinol 300 MG tablet PO SCH (21:14)
[2018-04-05] MEDS: pregabalin 75mg capsule PO SCH (21:15)
[2018-04-06] VITALS: BP 143/66
[2018-04-06 07:48] VITALS: BP 169/61
[2018-04-06] MEDS: mineral oil/petrolatum, white cream 113gm jar TP SCH ×2 (08:03→22:17)
[2018-04-06] MEDS: levoTHYROXINE 25mcg tablet PO SCH (08:03)
[2018-04-06] MEDS: carVEDilol 3.125mg tablet PO SCH ×2 (08:03→22:16)
[2018-04-06] MEDS: clopidogrel 75mg tablet PO SCH (08:03)
[2018-04-06] MEDS: lactobacillus rhamnosus 10,000 MMU CELLS/CAPSULE PO SCH ×2 (08:03→22:15)
[2018-04-06] MEDS: heparin, porcine 5000 units/ml vial SQ SCH ×2 (08:03→22:17)
[2018-04-06] MEDS: insulin Lispro (HumaLOG) vial - multi-dose SQ SCH ×3 (08:13→19:03)
[2018-04-06] MEDS: HYDROcodone/acetaminophen 10/325mg tab PO PRN ×2 (08:47→22:38)
[2018-04-06 11:24] VITALS: BP 163/69
[2018-04-06 20:00] VITALS: BP 115/42
[2018-04-06] MEDS: pregabalin 75mg capsule PO SCH (22:16)
[2018-04-06] MEDS: allopurinol 300 MG tablet PO SCH (22:16)
[2018-04-06] MEDS: insulin glargine (Lantus) pen - multi-dose SQ SCH (22:23)
[2018-04-07] VITALS: BP 159/57
[2018-04-07 07:24] VITALS: BP 174/68
[2018-04-07] MEDS: heparin, porcine 5000 units/ml vial SQ SCH ×2 (07:32→20:08)
[2018-04-07] MEDS: clopidogrel 75mg tablet PO SCH (07:32)
[2018-04-07] MEDS: levoTHYROXINE 25mcg tablet PO SCH (07:32)
[2018-04-07] MEDS: mineral oil/petrolatum, white cream 113gm jar TP SCH ×2 (07:32→20:09)
[2018-04-07] MEDS: lactobacillus rhamnosus 10,000 MMU CELLS/CAPSULE PO SCH ×2 (07:32→20:07)
[2018-04-07] MEDS: carVEDilol 3.125mg tablet PO SCH ×2 (07:32→20:07)
[2018-04-07] MEDS: HYDROcodone/acetaminophen 10/325mg tab PO PRN (08:26)
[2018-04-07] MEDS: insulin Lispro (HumaLOG) vial - multi-dose SQ SCH ×3 (08:31→18:46)
[2018-04-07] MEDS: lisinopril 20mg tablet PO SCH (10:44)
[2018-04-07 10:50] VITALS: BP 117/67
[2018-04-07 11:00] VITALS: BP 123/72
[2018-04-07 20:00] VITALS: BP 156/73
[2018-04-07] MEDS: allopurinol 300 MG tablet PO SCH (20:07)
[2018-04-07] MEDS: pregabalin 75mg capsule PO SCH (20:07)
[2018-04-07] MEDS: insulin glargine (Lantus) pen - multi-dose SQ SCH (21:18)
[2018-04-08] VITALS: BP 157/52
[2018-04-08 06:59] VITALS: BP 139/67
[2018-04-08] MEDS: levoTHYROXINE 25mcg tablet PO SCH (08:11)
[2018-04-08] MEDS: lactobacillus rhamnosus 10,000 MMU CELLS/CAPSULE PO SCH ×2 (08:11→20:36)
[2018-04-08] MEDS: clopidogrel 75mg tablet PO SCH (08:11)
[2018-04-08] MEDS: heparin, porcine 5000 units/ml vial SQ SCH ×2 (08:11→20:36)
[2018-04-08] MEDS: carVEDilol 3.125mg tablet PO SCH ×2 (08:11→20:36)
[2018-04-08] MEDS: lisinopril 20mg tablet PO SCH (08:11)
[2018-04-08] MEDS: insulin Lispro (HumaLOG) vial - multi-dose SQ SCH ×3 (08:14→18:55)
[2018-04-08] MEDS: mineral oil/petrolatum, white cream 113gm jar TP SCH ×2 (08:18→20:36)
[2018-04-08 11:44] VITALS: BP 109/58
[2018-04-08 18:45] VITALS: BP 141/66
[2018-04-08] MEDS: pregabalin 75mg capsule PO SCH (20:36)
[2018-04-08] MEDS: allopurinol 300 MG tablet PO SCH (20:36)
[2018-04-08] MEDS: insulin glargine (Lantus) pen - multi-dose SQ SCH (20:52)
[2018-04-08 23:30] VITALS: BP 151/62
[2018-04-09 07:00] VITALS: BP 105/72
[2018-04-09] MEDS: clopidogrel 75mg tablet PO SCH (08:26)
[2018-04-09] MEDS: lactobacillus rhamnosus 10,000 MMU CELLS/CAPSULE PO SCH (08:26)
[2018-04-09] MEDS: levoTHYROXINE 25mcg tablet PO SCH (08:26)
[2018-04-09] MEDS: carVEDilol 3.125mg tablet PO SCH (08:26)
[2018-04-09] MEDS: heparin, porcine 5000 units/ml vial SQ SCH (08:27)
[2018-04-09] MEDS: mineral oil/petrolatum, white cream 113gm jar TP SCH (08:27)
[2018-04-09] MEDS: lisinopril 20mg tablet PO SCH (08:27)
[2018-04-09] MEDS: insulin Lispro (HumaLOG) vial - multi-dose SQ SCH (09:15)
[2018-04-09] MEDS ORDERED: COR3.125T PO (12:29)
[2018-04-09] MEDS ORDERED: LISI-600 PO (12:29)
== END 2018-04-09 15:39 | disposition home health service (06) | DRG 690 ==
LOC: ER 17:00 → ED HOLD 22:25 → SUR 3N 22:42 → OBSVTOIN 03-26 18:22 → SUR 3N 03-27 03:10
PROVIDERS: ADMIT Hospitalist; ATTEND Family Medicine
DX: N39.0 Urinary tract infection, site not specified (principal); E11.51 Type 2 diabetes mellitus with diabetic peripheral angiopathy without gangrene; E03.9 Hypothyroidism, unspecified; E78.00 Pure hypercholesterolemia, unspecified; E78.5 Hyperlipidemia, unspecified; M10.9 Gout, unspecified; G30.9 Alzheimer's disease, unspecified; F02.80 Dementia in other diseases classified elsewhere, unspecified severity, without behavioral disturbance, psychotic disturbance, mood disturbance, and anxiety; Z66 Do not resuscitate; B96.1 Klebsiella pneumoniae [K. pneumoniae] as the cause of diseases classified elsewhere; M79.7 Fibromyalgia; I10 Essential (primary) hypertension; G89.29 Other chronic pain; M19.90 Unspecified osteoarthritis, unspecified site; L89.899 Pressure ulcer of other site, unspecified stage; Z88.1 Allergy status to other antibiotic agents; Z79.890 Hormone replacement therapy; Z86.73 Personal history of transient ischemic attack (TIA), and cerebral infarction without residual deficits; Z99.3 Dependence on wheelchair; Z88.6 Allergy status to analgesic agent; Z90.49 Acquired absence of other specified parts of digestive tract
CPT/HCPCS: 36415; 71045; 73630; 80048; 80053; 80320; 81001; 82948; 83036; 83605; 83690; 83735; 84443; 84484; 85025; 85610; 85730; 87040; 87070; 87077; 87088; 87186; 93005; 93922; 97110; 97116; 97162; 97530; 99285; A6212; A6213; A6223; A6250; G0378; J0696; J1644; J1815; J7030

== ENCOUNTER 2018-04-18 02:43 | Inpatient (IN) | payer MEDICARE, BC ==
[~2018-04-18] VITALS: Ht 152.4 cm; Wt 84.0 kg
[~2018-04-18 02:43] MED LIST changes: -CARV6.253 PO; +COR3.125T PO; +LISI-600 PO; +SANTYL OINTMENT
[2018-04-18] MEDS ORDERED: HYDROcodone/acetaminophen 5mg/325mg tablet PO ONE (03:40)
[2018-04-18 03:41] LABS: ALANINE AMINOTRANSFERASE 18 U/L (12-78); ALBUMIN 3.3 G/DL (3.4-5.0); ALBUMIN/GLOBULIN RATIO 0.8 (1.1-1.5); ALKALINE PHOSPHATASE 101 IU/L (46-116); ANION GAP 14 (8-16); ASPARTATE AMINO TRANSFERASE 15 U/L (10-37); BILIRUBIN,TOTAL 0.9 MG/DL (0.1-1.0); BLOOD UREA NITROGEN 30 MG/DL (7-18); BUN/CREATININE RATIO 26.5 (6.6-38.0); CALCIUM 9.4 MG/DL (8.5-10.1); CHLORIDE 99 MMOL/L (99-107); CREATININE 1.13 MG/DL (0.40-0.90); GLUCOSE 180 MG/DL (70-104); POTASSIUM 4.1 MMOL/L (3.5-5.1); SODIUM 136 MMOL/L (135-145); TOTAL CARBON DIOXIDE 23.2 MMOL/L (24-32); TOTAL PROTEIN 7.5 G/DL (6.4-8.2); eGFR 46 ML/MIN
[2018-04-18 03:43] LABS: TROPONIN I < 0.04 NG/ML (0.0-0.05)
[2018-04-18 03:44] LABS: BASOPHILS % (AUTO) 0.3 % (0-1); EOSINOPHILS # (AUTO) 0.1 X10'3 (0-0.9); EOSINOPHILS % (AUTO) 1.1 % (0-6); HEMATOCRIT 38.6 % (35.0-45.0); HEMOGLOBIN 12.9 g/dl (12.0-16.0); LYMPHOCYTES # (AUTO) 1.5 X10'3 (1.1-4.8); LYMPHOCYTES % (AUTO) 16.5 % (21-51); MEAN CORPUSCULAR HEMOGLOBIN 28.6 PG (27.0-31.0); MEAN CORPUSCULAR HGB CONC 33.5 % (33.0-36.5); MEAN CORPUSCULAR VOLUME 85.3 FL (78-98); MEAN PLATELET VOLUME 9.6 FL (7.4-10.4); MONOCYTES # (AUTO) 0.6 X10'3 (0-0.9); MONOCYTES % (AUTO) 6.9 % (2-12); NEUTROPHILS % (AUTO) 75.2 % (42-75); PLATELET COUNT 231 X10'3 (140-440); RED BLOOD COUNT 4.52 X10'6 (4.20-5.60); RED CELL DISTRIBUTION WIDTH 16.1 % (11.5-14.5); WHITE BLOOD COUNT 9.2 X10'3 (4.5-11.0)
[2018-04-18 12:42] LABS: CLARITY,URINE CLEAR (Clear); COLOR,URINE YELLOW (Yellow); GLUCOSE, URINE NEGATIVE (Neg); KETONES,URINE 40 mg/dl (Neg); LEUKOCYTE ESTERASE ,URINE NEGATIVE (Neg); NITRITES, URINE NEGATIVE (Neg); OCCULT BLOOD,URINE NEGATIVE (Neg); PROTEIN,URINE TRACE mg/dl (Neg); UROBILINOGEN,URINE 0.2 E.U/dL (0.2-1.0)
[2018-04-18 12:47] LABS: UA COLLECTION TYPE STRAIGHT CATH
[2018-04-18 12:48] LABS: BACTERIA,URINE NONE SEEN /HPF (Neg); MUCUS STRANDS FEW /LPF (Neg); RBC,URINE NONE SEEN /HPF (0-2); SQUAMOUS EPITHELIAL CELL,UR NONE SEEN /LPF (FEW); WBC,URINE NONE SEEN /HPF (0-4)
[2018-04-18] MEDS: normal saline 1000ml 1,000 ML IV SCH (13:22)
[2018-04-18] MEDS ORDERED: mag hydrox/Alum hydrox/simeth 30ml oral suspension PO PRN (13:25)
[2018-04-18] MEDS ORDERED: ondansetron/PF 4mg/2ml inj IV PRN (13:25)
[2018-04-18] MEDS ORDERED: morphine 4 MG/ML inj SYRINge IV PRN (13:25)
[2018-04-18] MEDS ORDERED: acetaminophen 325mg tablet PO PRN (13:25)
[2018-04-18] MEDS ORDERED: magnesium hydroxide 30ml (MOM) UD suspension PO PRN (13:25)
[2018-04-18] MEDS: HYDROcodone/acetaminophen 5mg/325mg tablet PO PRN ×2 (13:41→22:31)
[2018-04-18 14:30] VITALS: BP 121/51
[2018-04-18 18:00] VITALS: BP 144/54
[2018-04-18] MEDS: heparin, porcine 5000 units/ml vial SQ SCH (19:39)
[2018-04-18] MEDS ORDERED: glucagon, human recombinant 1mg kit SUBCUT PRN (21:55)
[2018-04-18] MEDS ORDERED: dextrose 50%-water 50ml dispensing syringe IV PRN ×2 (21:55)
[2018-04-18] MEDS ORDERED: dextrose ORAL solution 15 GM/59 ML bottle PO PRN ×2 (21:55)
[2018-04-18 22:00] VITALS: BP 144/50
[2018-04-18] MEDS: insulin glargine (Lantus) pen - multi-dose SQ SCH (22:34)
[2018-04-18] MEDS: insulin Lispro (HumaLOG) vial - multi-dose SQ SCH (22:35)
[2018-04-19 05:00] VITALS: BP 151/66
[2018-04-19] MEDS: heparin, porcine 5000 units/ml vial SQ SCH ×2 (07:32→19:41)
[2018-04-19] MEDS: insulin Lispro (HumaLOG) vial - multi-dose SQ SCH ×2 (08:47→13:23)
[2018-04-19 10:09] VITALS: BP 126/46
[2018-04-19] MEDS: HYDROcodone/acetaminophen 5mg/325mg tablet PO PRN ×2 (10:30→21:09)
[2018-04-19] MEDS ORDERED: benzocaine/menthol oral lozeng 1 EACH BOX MM PRN (10:35)
[2018-04-19] MEDS ORDERED: acetaminophen 325mg tablet PO PRN (10:50)
[2018-04-19] MEDS: clopidogrel 75mg tablet PO SCH (11:13)
[2018-04-19 18:30] VITALS: BP 157/57
[2018-04-19] MEDS: carVEDilol 3.125mg tablet PO SCH (19:41)
[2018-04-19] MEDS ORDERED: insulin glargine (Lantus) pen - multi-dose SQ SCH (21:00)
[2018-04-19] MEDS ORDERED: atorvastatin 20mg tablet PO SCH (21:00)
[2018-04-19] MEDS ORDERED: pregabalin 75mg capsule PO SCH (21:00)
[2018-04-19] MEDS ORDERED: allopurinol 300 MG tablet PO SCH (21:00)
[2018-04-19] MEDS: insulin glargine (Lantus) pen - multi-dose SQ SCH (21:16)
[2018-04-19 22:00] VITALS: BP 172/56
[2018-04-20] MEDS: HYDROcodone/acetaminophen 5mg/325mg tablet PO PRN (03:00)
[2018-04-20 05:00] VITALS: BP 165/49
[2018-04-20] MEDS ORDERED: levoTHYROXINE 25mcg tablet PO SCH (07:00)
[2018-04-20] MEDS ORDERED: lisinopril 20mg tablet PO SCH (08:00)
[2018-04-20] MEDS: clopidogrel 75mg tablet PO SCH (08:07)
[2018-04-20] MEDS: carVEDilol 3.125mg tablet PO SCH (08:07)
[2018-04-20] MEDS: heparin, porcine 5000 units/ml vial SQ SCH (08:08)
[2018-04-20 08:09] VITALS: BP 189/90
[2018-04-20] MEDS: insulin Lispro (HumaLOG) vial - multi-dose SQ SCH (08:59)
[2018-04-20 12:00] VITALS: BP 122/48
[2018-04-20] MEDS: normal saline 1000ml 1,000 ML IV SCH (13:22)
== END 2018-04-20 17:15 | DRG 641 ==
LOC: ER 02:43 → ED HOLD 13:22 → ORTHO 4S 14:38 → OBSVTOIN 04-20 09:09
PROVIDERS: ADMIT Family Medicine; ATTEND Family Medicine
DX: E86.0 Dehydration (principal); R53.1 Weakness; N28.9 Disorder of kidney and ureter, unspecified; E03.9 Hypothyroidism, unspecified; E11.51 Type 2 diabetes mellitus with diabetic peripheral angiopathy without gangrene; E78.00 Pure hypercholesterolemia, unspecified; E78.5 Hyperlipidemia, unspecified; I10 Essential (primary) hypertension; L89.322 Pressure ulcer of left buttock, stage 2; M79.7 Fibromyalgia; Z60.2 Problems related to living alone; G89.29 Other chronic pain; M10.9 Gout, unspecified; M19.90 Unspecified osteoarthritis, unspecified site; W05.0XXA Fall from non-moving wheelchair, initial encounter; Z90.49 Acquired absence of other specified parts of digestive tract; Z88.1 Allergy status to other antibiotic agents; Z88.6 Allergy status to analgesic agent; Z79.84 Long term (current) use of oral hypoglycemic drugs; Z79.899 Other long term (current) drug therapy; Z79.02 Long term (current) use of antithrombotics/antiplatelets; Z86.73 Personal history of transient ischemic attack (TIA), and cerebral infarction without residual deficits; Y93.89 Activity, other specified; Y92.89 Other specified places as the place of occurrence of the external cause; Y99.8 Other external cause status
CPT/HCPCS: 36415; 72170; 73564; 80053; 81001; 82948; 84484; 85025; 87070; 93005; 96372; 97110; 97161; 97530; 99285; A4315; A4649; A6196; A6212; A6213; G0378; J1644; J1815; J7030

== ENCOUNTER 2018-09-13 11:40 | Day surgery (SDC) | payer MEDICARE, BC ==
[~2018-09-13 11:40] MED LIST changes: +METF-950 PO; -METF500T6 PO; -SANTYL OINTMENT
--- NOTE | 2018-09-13 13:30 | NUR ---
[facility] and was admitted to outpatient wound care for physician visit with Osito Ayala MD. Wounds cleansed. New patient assessment completed with review of patient's medical history and current medications. 1130 - Dr. Ayala at bedside accompanied by RN. Wound assessed, time out performed by MD/RN. Wound debrided as detailed in the physician progress/procedure note. Plan of care discussed with patient. Dressings placed per MD orders. Patient instructed on the signs and symptoms of infection and to call the Wound Center if any occur or to go to the ED if we are closed: Increased pain in wound Increase in drainage from the wound Redness in the skin surrounding the wound Bleeding from the wound Temperature of 101 or greater Patient instructed that the weight of their body puts a large amount of pressure on their wounds. This pressure keeps the new tissue from growing and inhibits new blood vessels from forming. Explained that, if they continue to bear weight on a body part that has a wound, the time it takes to heal the wound increases, the wound may get worse or the wound may not heal at all. Patient verbalized understanding of all discharge instructions and plan of care and [facility] via wheelchair [facility] to [facility] in [facility] condition with no sign or symptom of distress at time of discharge. Home health care arranged with Nneka at [facility].
--- NOTE | 2018-09-13 13:44 | NUR ---
Patient refused accucheck "too Painful". Addendum: 09/13/18 at 1347 by Zelda Bray RN Amended: Links added.
== END 2018-09-13 14:00 | disposition home or self-care (01) ==
LOC: WOUND CARE 11:40
PROVIDERS: ATTEND Surgery
DX: I70.244 Atherosclerosis of native arteries of left leg with ulceration of heel and midfoot (principal); E11.621 Type 2 diabetes mellitus with foot ulcer; L97.522 Non-pressure chronic ulcer of other part of left foot with fat layer exposed; I10 Essential (primary) hypertension; E78.5 Hyperlipidemia, unspecified; E03.9 Hypothyroidism, unspecified; M19.90 Unspecified osteoarthritis, unspecified site; G30.9 Alzheimer's disease, unspecified; F02.81 Dementia in other diseases classified elsewhere, unspecified severity, with behavioral disturbance; Z86.73 Personal history of transient ischemic attack (TIA), and cerebral infarction without residual deficits
CPT/HCPCS: 97597; A6021; A6196; A6206

== ENCOUNTER 2018-09-27 11:13 | Day surgery (SDC) | payer MEDICARE, BC ==
[~2018-09-27 11:13] MED LIST changes: -ALLO300T11 PO; -LISI-600 PO; -SIMV20TA5 PO
[2018-09-27] MEDS ORDERED: LIDOcaine 2% 5ml jelly ONE (11:54)
--- NOTE | 2018-09-27 13:00 | NUR ---
Patient arrived via wheelchair from [facility] and was admitted to outpatient wound care for physician visit with Osito Ayala MD. Dressing removed, wound cleansed and lidocaine applied per order. Patient assessed for changes in conditions, medications and medical history. 1230 - Dr. Ayala at bedside accompanied by RN. Wound assessed, time out performed by MD/RN. Wound debrided as detailed in the physician progress/procedure note. Plan of care discussed with patient. Dressings placed per MD orders. Patient instructed on the signs and symptoms of infection and to call the Wound Center if any occur or to go to the ED if we are closed: Increased pain in wound Increase in drainage from the wound Redness in the skin surrounding the wound Bleeding from the wound Temperature of 101 or greater Patient instructed that the weight of their body puts a large amount of pressure on their wounds. This pressure keeps the new tissue from growing and inhibits new blood vessels from forming. Explained that, if they continue to bear weight on a body part that has a wound, the time it takes to heal the wound increases, the wound may get worse or the wound may not heal at all. Patient verbalized understanding of all discharge instructions and plan of care and exited via wheelchair out to [facility] in stable condition with no sign or symptom of distress at time of discharge.
== END 2018-09-27 13:02 | disposition home or self-care (01) ==
LOC: WOUND CARE 11:13
PROVIDERS: ATTEND Surgery
DX: I70.244 Atherosclerosis of native arteries of left leg with ulceration of heel and midfoot (principal); E11.621 Type 2 diabetes mellitus with foot ulcer; L97.522 Non-pressure chronic ulcer of other part of left foot with fat layer exposed; I10 Essential (primary) hypertension; E78.5 Hyperlipidemia, unspecified; E03.9 Hypothyroidism, unspecified; M19.90 Unspecified osteoarthritis, unspecified site; G30.9 Alzheimer's disease, unspecified; F02.81 Dementia in other diseases classified elsewhere, unspecified severity, with behavioral disturbance; Z86.73 Personal history of transient ischemic attack (TIA), and cerebral infarction without residual deficits
CPT/HCPCS: 97597; A6209; A6021; A6206; A6446

== ENCOUNTER 2018-10-11 11:11 | Day surgery (SDC) | payer MEDICARE, BC ==
[2018-10-11] MEDS ORDERED: LIDOcaine/PRILOcaine 5gm cream TP ONE (12:19)
--- NOTE | 2018-10-11 14:59 | NUR ---
[facility]. Patient admitted to outpatient wound care for physician visit with Osito Ayala MD. Dressing removed, wound cleansed and lidocaine applied per order. Patient assessed for changes in conditions, medications and medical history. Dr. Ayala at bedside accompanied by RN. Wound assessed, time out performed by MD/RN. Wound debrided as detailed in the physician progress/procedure note. Plan of care discussed with patient. Dressings placed per MD orders. Patient instructed on the signs and symptoms of infection and to call the Wound Center if any occur or to go to the ED if we are closed: Increased pain in wound Increase in drainage from the wound Redness in the skin surrounding the wound Bleeding from the wound Temperature of 101 or greater Patient instructed that elevated blood sugars delay healing of the wound and can cause further complications including but not limited to amputation of toes or feet. Patient instructed that the weight of their body puts a large amount of pressure on their wounds. This pressure keeps the new tissue from growing and inhibits new blood vessels from forming. Explained that, if they continue to bear weight on a body part that has a wound, the time it takes to heal the wound increases, the wound may get worse or the wound may not heal at all. Patient verbalized understanding of all discharge instructions and plan of care. Patient left in stable condition with no sign or symptom of distress at time of discharge. Addendum: 10/11/18 at 1502 by Saba Tucker RN Amended: Links added.
== END 2018-10-11 13:20 | disposition home or self-care (01) ==
LOC: WOUND CARE 11:11
PROVIDERS: ATTEND Surgery
DX: I70.244 Atherosclerosis of native arteries of left leg with ulceration of heel and midfoot (principal); E11.621 Type 2 diabetes mellitus with foot ulcer; L97.522 Non-pressure chronic ulcer of other part of left foot with fat layer exposed; E11.65 Type 2 diabetes mellitus with hyperglycemia; E11.40 Type 2 diabetes mellitus with diabetic neuropathy, unspecified; I10 Essential (primary) hypertension; E78.5 Hyperlipidemia, unspecified; E03.9 Hypothyroidism, unspecified; M19.90 Unspecified osteoarthritis, unspecified site; G30.9 Alzheimer's disease, unspecified; G89.29 Other chronic pain; M10.9 Gout, unspecified; F02.81 Dementia in other diseases classified elsewhere, unspecified severity, with behavioral disturbance; Z86.73 Personal history of transient ischemic attack (TIA), and cerebral infarction without residual deficits; Z90.49 Acquired absence of other specified parts of digestive tract; Z90.710 Acquired absence of both cervix and uterus; Z96.611 Presence of right artificial shoulder joint
CPT/HCPCS: 11042; 97597; A6209; A6222; A6021

== ENCOUNTER 2018-10-25 11:03 | Day surgery (SDC) | payer MEDICARE, BC ==
[2018-10-25] MEDS ORDERED: LIDOcaine/PRILOcaine 5gm cream TP ONE (12:36)
--- NOTE | 2018-10-25 16:47 | NUR ---
Patient arrived safely into [facility] via wheelchair. Patient admitted to outpatient wound care for physician visit with Osito Ayala MD. Dressings removed, wounds cleansed and Emla cream applied per order. Patient assessed for changes in conditions, medications and medical history. Dr. Ayala at bedside accompanied by RN. Wound assessed, time out performed by MD/RN. Wound debrided as detailed in the physician progress/procedure note. Plan of care discussed with patient. Dressings placed per MD orders. Patient instructed on the signs and symptoms of infection and to call the Wound Center if any occur or to go to the ED if we are closed: Increased pain in wound Increase in drainage from the wound Redness in the skin surrounding the wound Bleeding from the wound Temperature of 101 or greater Patient instructed that elevated blood sugars delay healing of the wound and can cause further complications including but not limited to amputation of toes or feet. Patient instructed that the weight of their body puts a large amount of pressure on their wounds. This pressure keeps the new tissue from growing and inhibits new blood vessels from forming. Explained that, if they continue to bear weight on a body part that has a wound, the time it takes to heal the wound increases, the wound may get worse or the wound may not heal at all. Patient verbalized understanding of all discharge instructions and plan of care and ambulated independently out to [facility] in stable condition with no sign or symptom of distress at time of discharge. Addendum: 10/25/18 at 1650 by Saba Tucker RN Amended: Links added.
== END 2018-10-25 13:26 | disposition home or self-care (01) ==
LOC: WOUND CARE 11:03
PROVIDERS: ATTEND Surgery
DX: I70.244 Atherosclerosis of native arteries of left leg with ulceration of heel and midfoot (principal); E11.621 Type 2 diabetes mellitus with foot ulcer; L97.522 Non-pressure chronic ulcer of other part of left foot with fat layer exposed; E11.65 Type 2 diabetes mellitus with hyperglycemia; E11.40 Type 2 diabetes mellitus with diabetic neuropathy, unspecified; I10 Essential (primary) hypertension; E78.5 Hyperlipidemia, unspecified; E03.9 Hypothyroidism, unspecified; M19.90 Unspecified osteoarthritis, unspecified site; G30.9 Alzheimer's disease, unspecified; M10.9 Gout, unspecified; F02.81 Dementia in other diseases classified elsewhere, unspecified severity, with behavioral disturbance; Z86.73 Personal history of transient ischemic attack (TIA), and cerebral infarction without residual deficits; Z90.49 Acquired absence of other specified parts of digestive tract; Z90.710 Acquired absence of both cervix and uterus; Z96.611 Presence of right artificial shoulder joint
CPT/HCPCS: 97597; A6021; A6206; A6446

== ENCOUNTER 2018-11-08 11:00 | Day surgery (SDC) | payer MEDICARE, BC ==
--- NOTE | 2018-11-08 15:31 | NUR ---
1100 Patient brought safely into [facility] via w/c. Patient admitted to outpatient wound care clinic for follow-up visit with physician. Dressings removed, wound cleansed. Patient assessed for changes in conditions, medications and medical history. Patient showed no s/s of distress at time of assessment. Patient has 2 new wounds today from falling at home. Patient has home health which follows her at home. 1200 at bedside accompanied by RN. Wounds assessed, time out performed and debridement done today as detailed in the physician progress/procedure note. Plan of care discussed with patient. Dressings placed per MD orders. Patient instructed on the signs and symptoms of infection and to call the Wound Center if any occur or to go to the ED if we are closed: Increased pain in wound Increase in drainage from the wound Redness in the skin surrounding the wound Bleeding from the wound Temperature of 101 or greater Patient instructed that the weight of their body puts a large amount of pressure on their wounds. This pressure keeps the new tissue from growing and inhibits new blood vessels from forming. Explained that, if they continue to bear weight on a body part that has a wound, the time it takes to heal the wound increases, the wound may get worse or the wound may not heal at all. Patient instructed that elevated blood sugars delay healing of the wound and can cause further complications including but not limited to amputation of toes or feet. Patient verbalized understanding of all discharge instructions and plan of care. Patient ambulated independently out to [email or web address] and is in stable condition with no sign or symptom of distress at time of discharge.
== END 2018-11-08 13:30 | disposition home or self-care (01) ==
LOC: WOUND CARE 11:00
PROVIDERS: ATTEND Surgery
DX: I70.245 Atherosclerosis of native arteries of left leg with ulceration of other part of foot (principal); E11.621 Type 2 diabetes mellitus with foot ulcer; L97.522 Non-pressure chronic ulcer of other part of left foot with fat layer exposed; E11.65 Type 2 diabetes mellitus with hyperglycemia; E11.40 Type 2 diabetes mellitus with diabetic neuropathy, unspecified; I10 Essential (primary) hypertension; E78.5 Hyperlipidemia, unspecified; E03.9 Hypothyroidism, unspecified; M19.90 Unspecified osteoarthritis, unspecified site; G30.9 Alzheimer's disease, unspecified; M10.9 Gout, unspecified; I87.2 Venous insufficiency (chronic) (peripheral); F02.81 Dementia in other diseases classified elsewhere, unspecified severity, with behavioral disturbance; Z86.73 Personal history of transient ischemic attack (TIA), and cerebral infarction without residual deficits; Z90.49 Acquired absence of other specified parts of digestive tract; Z90.710 Acquired absence of both cervix and uterus; Z96.611 Presence of right artificial shoulder joint
CPT/HCPCS: 97597; A6209; A6021; A6196; A6206

== ENCOUNTER 2018-11-22 10:45 | Day surgery (SDC) | payer MEDICARE, BC ==
[2018-11-22] MEDS ORDERED: LIDOcaine/PRILOcaine 5gm cream TP ONE (11:52)
--- NOTE | 2018-11-22 13:00 | NUR ---
Patient arrived via wheelchair from [facility] and was admitted to outpatient wound care for physician visit with Osito Ayala MD. Dressing removed, wound cleansed and Emla cream applied per order. Patient assessed for changes in conditions, medications and medical history. 1215 - Dr. Ayala at bedside accompanied by RN. Wound assessed, time out performed by MD/RN. Wound debrided as detailed in the physician progress/procedure note. Plan of care discussed with patient. Dressings placed per MD orders. Patient instructed on the signs and symptoms of infection and to call the Wound Center if any occur or to go to the ED if we are closed: Increased pain in wound Increase in drainage from the wound Redness in the skin surrounding the wound Bleeding from the wound Temperature of 101 or greater Patient instructed that the weight of their body puts a large amount of pressure on their wounds. This pressure keeps the new tissue from growing and inhibits new blood vessels from forming. Explained that, if they continue to bear weight on a body part that has a wound, the time it takes to heal the wound increases, the wound may get worse or the wound may not heal at all. Patient verbalized understanding of all discharge instructions and plan of care and exited via wheelchair out to [facility] in stable condition with no sign or symptom of distress at time of discharge.
--- NOTE | 2018-11-22 15:58 | NUR ---
Patient does not allow RN to check her blood sugar on this, or any, of her visits to the clinic. "It hurts too much". Addendum: 11/22/18 at 1558 by Zelda Bray RN Amended: Links added.
[2018-11-23] MEDS ORDERED: CARV6.253 PO (16:26)
[2018-11-23] MEDS ORDERED: FURO20TA4 PO (16:27)
[2018-11-23] MEDS ORDERED: BENZ1LOZ30 MM (16:28)
[2018-11-23] MEDS ORDERED: ASPI-611 PO (16:30)
[2018-11-24] MEDS ORDERED: NITR0.4T51 SL (10:41)
[2018-11-24] MEDS ORDERED: ATOR20TA66 PO (10:41)
[2018-11-24] MEDS ORDERED: PANT-47 PO (10:41)
== END 2018-11-22 13:43 | disposition home or self-care (01) ==
LOC: WOUND CARE 10:45
PROVIDERS: ATTEND Surgery
DX: I70.245 Atherosclerosis of native arteries of left leg with ulceration of other part of foot (principal); E11.621 Type 2 diabetes mellitus with foot ulcer; L97.522 Non-pressure chronic ulcer of other part of left foot with fat layer exposed; L97.511 Non-pressure chronic ulcer of other part of right foot limited to breakdown of skin; E11.65 Type 2 diabetes mellitus with hyperglycemia; E11.40 Type 2 diabetes mellitus with diabetic neuropathy, unspecified; I10 Essential (primary) hypertension; E78.5 Hyperlipidemia, unspecified; E03.9 Hypothyroidism, unspecified; M19.90 Unspecified osteoarthritis, unspecified site; G30.9 Alzheimer's disease, unspecified; M10.9 Gout, unspecified; I87.2 Venous insufficiency (chronic) (peripheral); F02.81 Dementia in other diseases classified elsewhere, unspecified severity, with behavioral disturbance; Z86.73 Personal history of transient ischemic attack (TIA), and cerebral infarction without residual deficits; Z90.49 Acquired absence of other specified parts of digestive tract; Z90.710 Acquired absence of both cervix and uterus; Z96.611 Presence of right artificial shoulder joint
CPT/HCPCS: 97597; A6021; A6206

== ENCOUNTER 2018-11-23 12:47 | Inpatient (IN) | payer MEDICARE, BC | END 2018-11-24 12:15 | disposition home or self-care (01) | LOC: ER 12:47 → MED 3N 16:01 | DX: I50.9 Heart failure, unspecified (principal) ==

== ENCOUNTER 2018-12-13 11:40 | Day surgery (SDC) | payer MEDICARE, BC ==
[~2018-12-13 11:40] MED LIST changes: +ASPI-611 PO; +ATOR20TA66 PO; +CARV6.253 PO; -COR3.125T PO; +FURO20TA4 PO; +NITR0.4T51 SL; +PANT-47 PO
[2018-12-13] MEDS ORDERED: silver sulfadiazine cream 50gm TP ONE (13:27)
--- NOTE | 2018-12-13 13:51 | NUR ---
Patient from [facility] and was admitted via wheelchair to outpatient wound care for physician visit. Dressings removed, wound cleansed. Patient assessment completed with review of patient's medical history and current medications. Susan Ayala at bedside accompanied by RN. Wound assessed, time-out performed by MD/RN. Wound debrided as detailed in the physician progress/procedure note. Plan of care discussed with patient. Dressings placed per MD orders. Patient instructed on the signs and symptoms of infection and to call the Wound Center if any occur or to go to the ED if we are closed: Increased pain in the wound Increase in drainage from the wound Redness in the skin surrounding the wound Bleeding from the wound Temperature of 101F or greater Patient instructed that the weight of their body puts a large amount of pressure on their wounds. This pressure keeps the new tissue from growing and inhibits new blood vessels from forming. Explained that, if they continue to bear weight on a body part that has a wound, the time it takes to heal the wound increases, the wound may get worse, or the wound may not heal at all. Patient verbalized understanding of all discharge instructions and plan of care. Patient ambulated independently out to [facility] in stable condition with no signs or symptoms of distress at time of discharge.
== END 2018-12-13 14:40 | disposition home or self-care (01) ==
LOC: WOUND CARE 11:40
PROVIDERS: ATTEND Surgery
DX: I70.245 Atherosclerosis of native arteries of left leg with ulceration of other part of foot (principal); E11.621 Type 2 diabetes mellitus with foot ulcer; L97.522 Non-pressure chronic ulcer of other part of left foot with fat layer exposed; L97.511 Non-pressure chronic ulcer of other part of right foot limited to breakdown of skin; E11.65 Type 2 diabetes mellitus with hyperglycemia; E11.40 Type 2 diabetes mellitus with diabetic neuropathy, unspecified; I10 Essential (primary) hypertension; E78.5 Hyperlipidemia, unspecified; E03.9 Hypothyroidism, unspecified; M19.90 Unspecified osteoarthritis, unspecified site; G30.9 Alzheimer's disease, unspecified; M10.9 Gout, unspecified; I87.2 Venous insufficiency (chronic) (peripheral); F02.81 Dementia in other diseases classified elsewhere, unspecified severity, with behavioral disturbance; Z86.73 Personal history of transient ischemic attack (TIA), and cerebral infarction without residual deficits; Z90.49 Acquired absence of other specified parts of digestive tract; Z90.710 Acquired absence of both cervix and uterus; Z96.611 Presence of right artificial shoulder joint
CPT/HCPCS: 36416; 97597; A6223; A6021; A6206; A6446

== ENCOUNTER 2018-12-23 11:00 | Outpatient (CLI) | payer MEDICARE, BC ==
--- NOTE | 2018-12-23 12:45 | NUR ---
Patient arrived via wheelchair from [facility] and was admitted to outpatient wound care for physician visit with Osito Ayala MD. Dressing removed, wound cleansed. Patient assessed for changes in conditions, medications and medical history. Dr. Ayala at bedside accompanied by RN. Wound assessed by MD and orders written. Plan of care discussed with patient. Dressings placed per MD orders. Patient instructed on the signs and symptoms of infection and to call the Wound Center if any occur or to go to the ED if we are closed: Increased pain in wound Increase in drainage from the wound Redness in the skin surrounding the wound Bleeding from the wound Temperature of 101 or greater Patient instructed that the weight of their body puts a large amount of pressure on their wounds. This pressure keeps the new tissue from growing and inhibits new blood vessels from forming. Explained that, if they continue to bear weight on a body part that has a wound, the time it takes to heal the wound increases, the wound may get worse or the wound may not heal at all. Patient verbalized understanding of all discharge instructions and plan of care and exited via wheelchair out to [facility] in stable condition with no sign or symptom of distress at time of discharge.
[2018-12-23] MEDS ORDERED: silver sulfadiazine cream 50gm TP ONE (12:48)
== END 2018-12-23 13:20 | disposition home or self-care (01) ==
LOC: EDSTATUS 11:00 → WOUND CARE 11:00
PROVIDERS: ATTEND Surgery
DX: I70.245 Atherosclerosis of native arteries of left leg with ulceration of other part of foot (principal); E11.621 Type 2 diabetes mellitus with foot ulcer; L97.522 Non-pressure chronic ulcer of other part of left foot with fat layer exposed; L97.511 Non-pressure chronic ulcer of other part of right foot limited to breakdown of skin; E11.65 Type 2 diabetes mellitus with hyperglycemia; E11.40 Type 2 diabetes mellitus with diabetic neuropathy, unspecified; I10 Essential (primary) hypertension; E78.5 Hyperlipidemia, unspecified; E03.9 Hypothyroidism, unspecified; M19.90 Unspecified osteoarthritis, unspecified site; G30.9 Alzheimer's disease, unspecified; M10.9 Gout, unspecified; I87.2 Venous insufficiency (chronic) (peripheral); F02.81 Dementia in other diseases classified elsewhere, unspecified severity, with behavioral disturbance; Z86.73 Personal history of transient ischemic attack (TIA), and cerebral infarction without residual deficits; Z90.49 Acquired absence of other specified parts of digestive tract; Z90.710 Acquired absence of both cervix and uterus; Z96.611 Presence of right artificial shoulder joint
CPT/HCPCS: A6223; G0463; A6021; A6206; A6446

== ENCOUNTER 2018-12-30 11:05 | Day surgery (SDC) | payer MEDICARE, BC ==
[2018-12-30] MEDS ORDERED: LIDOcaine/PRILOcaine 5gm cream TP ONE (12:07)
[2018-12-30] MEDS ORDERED: silver sulfadiazine cream 50gm TP ONE (12:51)
--- NOTE | 2018-12-30 16:47 | NUR ---
Patient arrived safely into [facility] via wheelchair. Patient admitted to outpatient wound care for physician visit with Osito Ayala MD. Dressing removed, wound cleansed and Emla cream applied per order. Patient assessed for changes in conditions, medications and medical history. Dr. Ayala at bedside accompanied by RN. Wound assessed, time out performed by MD/RN. Wound debrided as detailed in the physician progress/procedure note. Plan of care discussed with patient. Dressings placed per MD orders. Patient instructed on the signs and symptoms of infection and to call the Wound Center if any occur or to go to the ED if we are closed: Increased pain in wound Increase in drainage from the wound Redness in the skin surrounding the wound Bleeding from the wound Temperature of 101 or greater Patient instructed that the weight of their body puts a large amount of pressure on their wounds. This pressure keeps the new tissue from growing and inhibits new blood vessels from forming. Explained that, if they continue to bear weight on a body part that has a wound, the time it takes to heal the wound increases, the wound may get worse or the wound may not heal at all. Patient verbalized understanding of all discharge instructions and plan of care and ambulated independently out to [facility] in stable condition with no sign or symptom of distress at time of discharge. Addendum: 12/30/18 at 1651 by Saba Tucker RN Amended: Links added.
== END 2018-12-30 13:24 | disposition home or self-care (01) ==
LOC: WOUND CARE 11:05
PROVIDERS: ATTEND Surgery
DX: I70.245 Atherosclerosis of native arteries of left leg with ulceration of other part of foot (principal); E11.621 Type 2 diabetes mellitus with foot ulcer; L97.522 Non-pressure chronic ulcer of other part of left foot with fat layer exposed; L97.511 Non-pressure chronic ulcer of other part of right foot limited to breakdown of skin; E11.65 Type 2 diabetes mellitus with hyperglycemia; E11.40 Type 2 diabetes mellitus with diabetic neuropathy, unspecified; I10 Essential (primary) hypertension; E78.5 Hyperlipidemia, unspecified; E03.9 Hypothyroidism, unspecified; M19.90 Unspecified osteoarthritis, unspecified site; G30.9 Alzheimer's disease, unspecified; M10.9 Gout, unspecified; I87.2 Venous insufficiency (chronic) (peripheral); F02.81 Dementia in other diseases classified elsewhere, unspecified severity, with behavioral disturbance; Z86.73 Personal history of transient ischemic attack (TIA), and cerebral infarction without residual deficits; Z90.49 Acquired absence of other specified parts of digestive tract; Z90.710 Acquired absence of both cervix and uterus; Z96.611 Presence of right artificial shoulder joint
CPT/HCPCS: 97597; A6021; A6206; A6446

== ENCOUNTER 2019-01-10 10:24 | Day surgery (SDC) | payer MEDICARE, BC ==
[2019-01-10] MEDS ORDERED: LIDOcaine/PRILOcaine 5gm cream TP ONE (11:24)
--- NOTE | 2019-01-10 14:36 | NUR ---
Patient arrived safely into [facility] via wheelchair. Patient admitted to outpatient wound care for physician visit with Osito Ayala MD. Dressings removed, wounds cleansed and Emla cream applied per order. Patient assessed for changes in conditions, medications and medical history. Dr. Ayala at bedside accompanied by RN. Wound assessed, time out performed by MD/RN. Wound debrided as detailed in the physician progress/procedure note. Plan of care discussed with patient. Dressings placed per MD orders. Patient instructed on the signs and symptoms of infection and to call the Wound Center if any occur or to go to the ED if we are closed: Increased pain in wound Increase in drainage from the wound Redness in the skin surrounding the wound Bleeding from the wound Temperature of 101 or greater Patient instructed that the weight of their body puts a large amount of pressure on their wounds. This pressure keeps the new tissue from growing and inhibits new blood vessels from forming. Explained that, if they continue to bear weight on a body part that has a wound, the time it takes to heal the wound increases, the wound may get worse or the wound may not heal at all. Patient verbalized understanding of all discharge instructions and plan of care. Patient left in stable condition with no sign or symptom of distress at time of discharge. Addendum: 01/10/19 at 1438 by Saba Tucker RN Amended: Links added.
== END 2019-01-10 13:00 | disposition home or self-care (01) ==
LOC: WOUND CARE 10:24
PROVIDERS: ATTEND Surgery
DX: I70.245 Atherosclerosis of native arteries of left leg with ulceration of other part of foot (principal); E11.621 Type 2 diabetes mellitus with foot ulcer; L97.522 Non-pressure chronic ulcer of other part of left foot with fat layer exposed; L97.511 Non-pressure chronic ulcer of other part of right foot limited to breakdown of skin; E11.65 Type 2 diabetes mellitus with hyperglycemia; E11.40 Type 2 diabetes mellitus with diabetic neuropathy, unspecified; I10 Essential (primary) hypertension; E78.5 Hyperlipidemia, unspecified; E03.9 Hypothyroidism, unspecified; M19.90 Unspecified osteoarthritis, unspecified site; G30.9 Alzheimer's disease, unspecified; M10.9 Gout, unspecified; I87.2 Venous insufficiency (chronic) (peripheral); F02.81 Dementia in other diseases classified elsewhere, unspecified severity, with behavioral disturbance; Z86.73 Personal history of transient ischemic attack (TIA), and cerebral infarction without residual deficits; Z90.49 Acquired absence of other specified parts of digestive tract; Z90.710 Acquired absence of both cervix and uterus; Z96.611 Presence of right artificial shoulder joint
CPT/HCPCS: 97597; A6021; A6206

== ENCOUNTER 2019-01-24 10:50 | Day surgery (SDC) | payer MEDICARE, BC ==
[2019-01-24] MEDS ORDERED: LIDOcaine/PRILOcaine 5gm cream TP ONE (12:25)
--- NOTE | 2019-01-24 14:42 | NUR ---
[facility] care for physician visit with Osito Ayala MD. Dressing removed, wound cleansed and Emla cream applied per order. Patient assessed for changes in conditions, medications and medical history. 1240 - Dr. Ayala at bedside accompanied by RN. Wound assessed, time out performed by MD/RN. Wound debrided as detailed in the physician progress/procedure note. Plan of care discussed with patient. Dressings placed per MD orders. Patient instructed on the signs and symptoms of infection and to call the Wound Center if any occur or to go to the ED if we are closed: Increased pain in wound Increase in drainage from the wound Redness in the skin surrounding the wound Bleeding from the wound Temperature of 101 or greater Patient instructed that the weight of their body puts a large amount of pressure on their wounds. This pressure keeps the new tissue from growing and inhibits new blood vessels from forming. Explained that, if they continue to bear weight on a body part that has a wound, the time it takes to heal the wound increases, the wound may get worse or the wound may not heal at all. Patient verbalized understanding of all discharge instructions and plan of care and [facility] with no sign or symptom of distress at time of discharge.
== END 2019-01-24 14:00 | disposition home or self-care (01) ==
LOC: WOUND CARE 10:50
PROVIDERS: ATTEND Surgery
DX: I70.245 Atherosclerosis of native arteries of left leg with ulceration of other part of foot (principal); E11.621 Type 2 diabetes mellitus with foot ulcer; L97.522 Non-pressure chronic ulcer of other part of left foot with fat layer exposed; L97.511 Non-pressure chronic ulcer of other part of right foot limited to breakdown of skin; E11.65 Type 2 diabetes mellitus with hyperglycemia; E11.40 Type 2 diabetes mellitus with diabetic neuropathy, unspecified; I10 Essential (primary) hypertension; E78.5 Hyperlipidemia, unspecified; E03.9 Hypothyroidism, unspecified; M19.90 Unspecified osteoarthritis, unspecified site; G30.9 Alzheimer's disease, unspecified; M10.9 Gout, unspecified; I87.2 Venous insufficiency (chronic) (peripheral); F02.81 Dementia in other diseases classified elsewhere, unspecified severity, with behavioral disturbance; Z86.73 Personal history of transient ischemic attack (TIA), and cerebral infarction without residual deficits; Z90.49 Acquired absence of other specified parts of digestive tract; Z90.710 Acquired absence of both cervix and uterus; Z96.611 Presence of right artificial shoulder joint
CPT/HCPCS: 97597; 97598; A6021; A6206

== ENCOUNTER 2019-02-07 11:17 | Day surgery (SDC) | payer MEDICARE, BC ==
[2019-02-07] MEDS ORDERED: LIDOcaine/PRILOcaine 5gm cream TP ONE ×2 (12:08→12:13)
--- NOTE | 2019-02-07 13:00 | NUR ---
Patient arrived via wheelchair from [facility] for physician visit with Osito Ayala MD. Dressing removed, wound cleansed and Emla cream applied per order. Patient assessed for changes in conditions, medications and medical history. 1215 - Dr. Ayala at bedside accompanied by RN. Wound assessed, time out performed by MD/RN. Wound debrided as detailed in the physician progress/procedure note. Plan of care discussed with patient. Dressings placed per MD orders. Patient instructed on the signs and symptoms of infection and to call the Wound Center if any occur or to go to the ED if we are closed: Increased pain in wound Increase in drainage from the wound Redness in the skin surrounding the wound Bleeding from the wound Temperature of 101 or greater Patient instructed that the weight of their body puts a large amount of pressure on their wounds. This pressure keeps the new tissue from growing and inhibits new blood vessels from forming. Explained that, if they continue to bear weight on a body part that has a wound, the time it takes to heal the wound increases, the wound may get worse or the wound may not heal at all. Patient verbalized understanding of all discharge instructions and plan of care and exited via wheelchair out to [facility] in stable condition with no sign or symptom of distress at time of discharge.
[2019-02-07] MEDS ORDERED: CEPH-572 PO (14:26)
== END 2019-02-07 13:04 | disposition home or self-care (01) ==
LOC: WOUND CARE 11:17
PROVIDERS: ATTEND Surgery
DX: I70.245 Atherosclerosis of native arteries of left leg with ulceration of other part of foot (principal); E11.621 Type 2 diabetes mellitus with foot ulcer; L97.522 Non-pressure chronic ulcer of other part of left foot with fat layer exposed; I70.235 Atherosclerosis of native arteries of right leg with ulceration of other part of foot; L97.511 Non-pressure chronic ulcer of other part of right foot limited to breakdown of skin; E11.622 Type 2 diabetes mellitus with other skin ulcer; L97.811 Non-pressure chronic ulcer of other part of right lower leg limited to breakdown of skin; E11.65 Type 2 diabetes mellitus with hyperglycemia; E11.40 Type 2 diabetes mellitus with diabetic neuropathy, unspecified; I10 Essential (primary) hypertension; E78.5 Hyperlipidemia, unspecified; E03.9 Hypothyroidism, unspecified; M19.90 Unspecified osteoarthritis, unspecified site; G30.9 Alzheimer's disease, unspecified; M10.9 Gout, unspecified; I87.2 Venous insufficiency (chronic) (peripheral); F02.81 Dementia in other diseases classified elsewhere, unspecified severity, with behavioral disturbance; Z86.73 Personal history of transient ischemic attack (TIA), and cerebral infarction without residual deficits; Z90.49 Acquired absence of other specified parts of digestive tract; Z90.710 Acquired absence of both cervix and uterus; Z96.611 Presence of right artificial shoulder joint
CPT/HCPCS: 97597; 97598; A6223; A6021; A6206

== ENCOUNTER 2019-03-14 10:55 | Day surgery (SDC) | payer MEDICARE, BC ==
--- NOTE | 2019-03-14 14:07 | NUR ---
Patient from [facility] via w/c and was admitted to outpatient wound care for physician visit. Dressings removed, wound cleansed. Patient assessment completed with review of patient's medical history and current medications. Blood Glucose= @ pt. declined BG check 1135-Dr. Ayala at bedside accompanied by RN. Wound assessed, time-out performed by MD/RN. Wound debrided as detailed in the physician progress/procedure note. Plan of care discussed with patient. Dressings placed per MD orders. Patient instructed on the signs and symptoms of infection and to call the Wound Center if any occur or to go to the ED if we are closed: Increased pain in the wound Increase in drainage from the wound Redness in the skin surrounding the wound Bleeding from the wound Temperature of 101F or greater Patient instructed that the weight of their body puts a large amount of pressure on their wounds. This pressure keeps the new tissue from growing and inhibits new blood vessels from forming. Explained that, if they continue to bear weight on a body part that has a wound, the time it takes to heal the wound increases, the wound may get worse, or the wound may not heal at all. Patient verbalized understanding of all discharge instructions and plan of care. Patient out to [facility] via w/c in stable condition with no signs or symptoms of distress at time of discharge.
== END 2019-03-14 12:45 | disposition home or self-care (01) ==
LOC: WOUND CARE 10:55
PROVIDERS: ATTEND Surgery
DX: I70.245 Atherosclerosis of native arteries of left leg with ulceration of other part of foot (principal); E11.621 Type 2 diabetes mellitus with foot ulcer; L97.521 Non-pressure chronic ulcer of other part of left foot limited to breakdown of skin; I70.235 Atherosclerosis of native arteries of right leg with ulceration of other part of foot; L97.511 Non-pressure chronic ulcer of other part of right foot limited to breakdown of skin; E11.622 Type 2 diabetes mellitus with other skin ulcer; L97.811 Non-pressure chronic ulcer of other part of right lower leg limited to breakdown of skin; E11.65 Type 2 diabetes mellitus with hyperglycemia; E11.40 Type 2 diabetes mellitus with diabetic neuropathy, unspecified; I10 Essential (primary) hypertension; E78.5 Hyperlipidemia, unspecified; E03.9 Hypothyroidism, unspecified; M19.90 Unspecified osteoarthritis, unspecified site; G30.9 Alzheimer's disease, unspecified; M10.9 Gout, unspecified; I87.2 Venous insufficiency (chronic) (peripheral); F02.81 Dementia in other diseases classified elsewhere, unspecified severity, with behavioral disturbance; Z86.73 Personal history of transient ischemic attack (TIA), and cerebral infarction without residual deficits; Z90.49 Acquired absence of other specified parts of digestive tract; Z90.710 Acquired absence of both cervix and uterus; Z96.611 Presence of right artificial shoulder joint
CPT/HCPCS: 97597; A6222; A6021; A6154

== ENCOUNTER 2019-03-21 10:46 | Day surgery (SDC) | payer MEDICARE, BC ==
--- NOTE | 2019-03-21 14:28 | NUR ---
Patient in wheelchair from [facility] and was admitted to outpatient wound care for physician visit. Dressings removed, wound cleansed. Patient assessment completed with review of patient's medical history and current medications. 1130-Dr. Ayala at bedside accompanied by RN. Wound assessed, time-out performed by MD/RN. Wound debrided as detailed in the physician progress/procedure note. Plan of care discussed with patient. Dressings placed per MD orders. Patient instructed on the signs and symptoms of infection and to call the Wound Center if any occur or to go to the ED if we are closed: Increased pain in the wound Increase in drainage from the wound Redness in the skin surrounding the wound Bleeding from the wound Temperature of 101F or greater Patient instructed that the weight of their body puts a large amount of pressure on their wounds. This pressure keeps the new tissue from growing and inhibits new blood vessels from forming. Explained that, if they continue to bear weight on a body part that has a wound, the time it takes to heal the wound increases, the wound may get worse, or the wound may not heal at all. Patient verbalized understanding of all discharge instructions and plan of care. Patient in wheelchair out to [facility] in stable condition with no signs or symptoms of distress at time of discharge.
== END 2019-03-21 13:24 | disposition home or self-care (01) ==
LOC: WOUND CARE 10:46
PROVIDERS: ATTEND Surgery
DX: I70.245 Atherosclerosis of native arteries of left leg with ulceration of other part of foot (principal); E11.621 Type 2 diabetes mellitus with foot ulcer; L97.521 Non-pressure chronic ulcer of other part of left foot limited to breakdown of skin; I70.235 Atherosclerosis of native arteries of right leg with ulceration of other part of foot; L97.511 Non-pressure chronic ulcer of other part of right foot limited to breakdown of skin; E11.622 Type 2 diabetes mellitus with other skin ulcer; L97.811 Non-pressure chronic ulcer of other part of right lower leg limited to breakdown of skin; E11.65 Type 2 diabetes mellitus with hyperglycemia; E11.40 Type 2 diabetes mellitus with diabetic neuropathy, unspecified; I10 Essential (primary) hypertension; E78.5 Hyperlipidemia, unspecified; E03.9 Hypothyroidism, unspecified; M19.90 Unspecified osteoarthritis, unspecified site; G30.9 Alzheimer's disease, unspecified; M10.9 Gout, unspecified; I87.2 Venous insufficiency (chronic) (peripheral); F02.81 Dementia in other diseases classified elsewhere, unspecified severity, with behavioral disturbance; Z86.73 Personal history of transient ischemic attack (TIA), and cerebral infarction without residual deficits; Z90.49 Acquired absence of other specified parts of digestive tract; Z90.710 Acquired absence of both cervix and uterus; Z96.611 Presence of right artificial shoulder joint
CPT/HCPCS: 97597; A4663; A6021; A6154

== ENCOUNTER 2019-04-04 11:07 | Day surgery (SDC) | payer MEDICARE, BC ==
[2019-04-04] MEDS ORDERED: LIDOcaine 2% 5ml jelly ONE (12:23)
== END 2019-04-04 13:30 | disposition home or self-care (01) ==
LOC: WOUND CARE 11:07
PROVIDERS: ATTEND Surgery
DX: I70.245 Atherosclerosis of native arteries of left leg with ulceration of other part of foot (principal); E11.621 Type 2 diabetes mellitus with foot ulcer; L97.521 Non-pressure chronic ulcer of other part of left foot limited to breakdown of skin; I70.235 Atherosclerosis of native arteries of right leg with ulceration of other part of foot; L97.511 Non-pressure chronic ulcer of other part of right foot limited to breakdown of skin; E11.622 Type 2 diabetes mellitus with other skin ulcer; L97.811 Non-pressure chronic ulcer of other part of right lower leg limited to breakdown of skin; E11.65 Type 2 diabetes mellitus with hyperglycemia; E11.40 Type 2 diabetes mellitus with diabetic neuropathy, unspecified; I10 Essential (primary) hypertension; E78.5 Hyperlipidemia, unspecified; E03.9 Hypothyroidism, unspecified; M19.90 Unspecified osteoarthritis, unspecified site; G30.9 Alzheimer's disease, unspecified; M10.9 Gout, unspecified; I87.2 Venous insufficiency (chronic) (peripheral); F02.81 Dementia in other diseases classified elsewhere, unspecified severity, with behavioral disturbance; Z86.73 Personal history of transient ischemic attack (TIA), and cerebral infarction without residual deficits; Z90.49 Acquired absence of other specified parts of digestive tract; Z90.710 Acquired absence of both cervix and uterus; Z96.611 Presence of right artificial shoulder joint
CPT/HCPCS: 15271; A6209; A6222; Q4186; A6154; A6250; A6446

== ENCOUNTER 2019-04-11 10:55 | Day surgery (SDC) | payer MEDICARE, BC ==
[2019-04-11] MEDS ORDERED: LIDOcaine 2% 5ml jelly ONE (11:56)
== END 2019-04-11 13:15 | disposition home or self-care (01) ==
LOC: WOUND CARE 10:55
PROVIDERS: ATTEND Surgery
DX: I70.245 Atherosclerosis of native arteries of left leg with ulceration of other part of foot (principal); E11.621 Type 2 diabetes mellitus with foot ulcer; L97.522 Non-pressure chronic ulcer of other part of left foot with fat layer exposed; I70.235 Atherosclerosis of native arteries of right leg with ulceration of other part of foot; L97.511 Non-pressure chronic ulcer of other part of right foot limited to breakdown of skin; E11.622 Type 2 diabetes mellitus with other skin ulcer; I83.012 Varicose veins of right lower extremity with ulcer of calf; L97.811 Non-pressure chronic ulcer of other part of right lower leg limited to breakdown of skin; I83.022 Varicose veins of left lower extremity with ulcer of calf; L97.821 Non-pressure chronic ulcer of other part of left lower leg limited to breakdown of skin; T24.232D Burn of second degree of left lower leg, subsequent encounter; S91.202A Unspecified open wound of left great toe with damage to nail, initial encounter; S91.201A Unspecified open wound of right great toe with damage to nail, initial encounter; E11.65 Type 2 diabetes mellitus with hyperglycemia; E11.40 Type 2 diabetes mellitus with diabetic neuropathy, unspecified; I10 Essential (primary) hypertension; E78.5 Hyperlipidemia, unspecified; E03.9 Hypothyroidism, unspecified; M19.90 Unspecified osteoarthritis, unspecified site; G30.9 Alzheimer's disease, unspecified; M10.9 Gout, unspecified; I87.2 Venous insufficiency (chronic) (peripheral); F02.81 Dementia in other diseases classified elsewhere, unspecified severity, with behavioral disturbance; Z86.73 Personal history of transient ischemic attack (TIA), and cerebral infarction without residual deficits; Z90.49 Acquired absence of other specified parts of digestive tract; Z90.710 Acquired absence of both cervix and uterus; Z96.611 Presence of right artificial shoulder joint; X08.8XXD Exposure to other specified smoke, fire and flames, subsequent encounter; X58.XXXA Exposure to other specified factors, initial encounter; Y93.89 Activity, other specified; Y92.89 Other specified places as the place of occurrence of the external cause; Y99.8 Other external cause status
CPT/HCPCS: 97597; A6021; A6154

== ENCOUNTER 2019-04-18 11:00 | Day surgery (SDC) | payer MEDICARE, BC ==
[2019-04-18] MEDS ORDERED: LIDOcaine 2% 5ml jelly ONE (12:12)
== END 2019-04-18 13:28 | disposition home or self-care (01) ==
LOC: WOUND CARE 11:00
PROVIDERS: ATTEND Surgery
DX: I70.245 Atherosclerosis of native arteries of left leg with ulceration of other part of foot (principal); E11.621 Type 2 diabetes mellitus with foot ulcer; L97.522 Non-pressure chronic ulcer of other part of left foot with fat layer exposed; I70.235 Atherosclerosis of native arteries of right leg with ulceration of other part of foot; L97.511 Non-pressure chronic ulcer of other part of right foot limited to breakdown of skin; E11.622 Type 2 diabetes mellitus with other skin ulcer; I83.012 Varicose veins of right lower extremity with ulcer of calf; L97.811 Non-pressure chronic ulcer of other part of right lower leg limited to breakdown of skin; I83.022 Varicose veins of left lower extremity with ulcer of calf; L97.821 Non-pressure chronic ulcer of other part of left lower leg limited to breakdown of skin; T24.232D Burn of second degree of left lower leg, subsequent encounter; S91.202A Unspecified open wound of left great toe with damage to nail, initial encounter; S91.201A Unspecified open wound of right great toe with damage to nail, initial encounter; E11.65 Type 2 diabetes mellitus with hyperglycemia; E11.40 Type 2 diabetes mellitus with diabetic neuropathy, unspecified; I10 Essential (primary) hypertension; E78.5 Hyperlipidemia, unspecified; E03.9 Hypothyroidism, unspecified; M19.90 Unspecified osteoarthritis, unspecified site; G30.9 Alzheimer's disease, unspecified; M10.9 Gout, unspecified; I87.2 Venous insufficiency (chronic) (peripheral); F02.81 Dementia in other diseases classified elsewhere, unspecified severity, with behavioral disturbance; Z86.73 Personal history of transient ischemic attack (TIA), and cerebral infarction without residual deficits; Z90.49 Acquired absence of other specified parts of digestive tract; Z90.710 Acquired absence of both cervix and uterus; Z96.611 Presence of right artificial shoulder joint; X08.8XXD Exposure to other specified smoke, fire and flames, subsequent encounter; X58.XXXA Exposure to other specified factors, initial encounter; Y93.89 Activity, other specified; Y92.89 Other specified places as the place of occurrence of the external cause; Y99.8 Other external cause status
CPT/HCPCS: 15271; A6209; A6222; Q4186; A4663; A6021; A6154; A6250; A6446

== ENCOUNTER 2019-04-26 11:05 | Day surgery (SDC) | payer MEDICARE, BC ==
[2019-04-26] MEDS ORDERED: LIDOcaine 2% 5ml jelly ONE (12:11)
== END 2019-04-26 13:28 | disposition home or self-care (01) ==
LOC: WOUND CARE 11:05
PROVIDERS: ATTEND Surgery
DX: I70.245 Atherosclerosis of native arteries of left leg with ulceration of other part of foot (principal); E11.621 Type 2 diabetes mellitus with foot ulcer; L97.522 Non-pressure chronic ulcer of other part of left foot with fat layer exposed; I70.235 Atherosclerosis of native arteries of right leg with ulceration of other part of foot; L97.511 Non-pressure chronic ulcer of other part of right foot limited to breakdown of skin; E11.622 Type 2 diabetes mellitus with other skin ulcer; I83.012 Varicose veins of right lower extremity with ulcer of calf; L97.811 Non-pressure chronic ulcer of other part of right lower leg limited to breakdown of skin; I83.022 Varicose veins of left lower extremity with ulcer of calf; L97.821 Non-pressure chronic ulcer of other part of left lower leg limited to breakdown of skin; T24.232D Burn of second degree of left lower leg, subsequent encounter; S91.202D Unspecified open wound of left great toe with damage to nail, subsequent encounter; S91.201D Unspecified open wound of right great toe with damage to nail, subsequent encounter; E11.65 Type 2 diabetes mellitus with hyperglycemia; E11.40 Type 2 diabetes mellitus with diabetic neuropathy, unspecified; I10 Essential (primary) hypertension; E78.5 Hyperlipidemia, unspecified; E03.9 Hypothyroidism, unspecified; M19.90 Unspecified osteoarthritis, unspecified site; G30.9 Alzheimer's disease, unspecified; M10.9 Gout, unspecified; I87.2 Venous insufficiency (chronic) (peripheral); F02.81 Dementia in other diseases classified elsewhere, unspecified severity, with behavioral disturbance; Z86.73 Personal history of transient ischemic attack (TIA), and cerebral infarction without residual deficits; Z90.49 Acquired absence of other specified parts of digestive tract; Z90.710 Acquired absence of both cervix and uterus; Z96.611 Presence of right artificial shoulder joint; X08.8XXD Exposure to other specified smoke, fire and flames, subsequent encounter; X58.XXXD Exposure to other specified factors, subsequent encounter
CPT/HCPCS: 97597; A4663; A6021; A6154; A6446

== ENCOUNTER 2019-05-02 11:05 | Day surgery (SDC) | payer MEDICARE, BC ==
[2019-05-02] MEDS ORDERED: LIDOcaine 2% 5ml jelly ONE (11:57)
== END 2019-05-02 13:02 | disposition home or self-care (01) ==
LOC: WOUND CARE 11:05
PROVIDERS: ATTEND Surgery
DX: I70.245 Atherosclerosis of native arteries of left leg with ulceration of other part of foot (principal); E11.621 Type 2 diabetes mellitus with foot ulcer; L97.522 Non-pressure chronic ulcer of other part of left foot with fat layer exposed; I70.235 Atherosclerosis of native arteries of right leg with ulceration of other part of foot; L97.511 Non-pressure chronic ulcer of other part of right foot limited to breakdown of skin; E11.622 Type 2 diabetes mellitus with other skin ulcer; I83.012 Varicose veins of right lower extremity with ulcer of calf; L97.811 Non-pressure chronic ulcer of other part of right lower leg limited to breakdown of skin; I83.022 Varicose veins of left lower extremity with ulcer of calf; L97.821 Non-pressure chronic ulcer of other part of left lower leg limited to breakdown of skin; T24.232D Burn of second degree of left lower leg, subsequent encounter; S91.202D Unspecified open wound of left great toe with damage to nail, subsequent encounter; S91.201D Unspecified open wound of right great toe with damage to nail, subsequent encounter; E11.65 Type 2 diabetes mellitus with hyperglycemia; E11.40 Type 2 diabetes mellitus with diabetic neuropathy, unspecified; I10 Essential (primary) hypertension; E78.5 Hyperlipidemia, unspecified; E03.9 Hypothyroidism, unspecified; M19.90 Unspecified osteoarthritis, unspecified site; G30.9 Alzheimer's disease, unspecified; M10.9 Gout, unspecified; I87.2 Venous insufficiency (chronic) (peripheral); F02.81 Dementia in other diseases classified elsewhere, unspecified severity, with behavioral disturbance; Z86.73 Personal history of transient ischemic attack (TIA), and cerebral infarction without residual deficits; Z90.49 Acquired absence of other specified parts of digestive tract; Z90.710 Acquired absence of both cervix and uterus; Z96.611 Presence of right artificial shoulder joint; X08.8XXD Exposure to other specified smoke, fire and flames, subsequent encounter; X58.XXXD Exposure to other specified factors, subsequent encounter
CPT/HCPCS: 15271; 36416; 97597; A6209; A6222; Q4186; A4663; A6021; A6154

== ENCOUNTER 2019-05-09 10:20 | Day surgery (SDC) | payer MEDICARE, BC ==
[2019-05-09] MEDS ORDERED: LIDOcaine 2% 5ml jelly ONE (11:11)
== END 2019-05-09 12:55 | disposition home or self-care (01) ==
LOC: WOUND CARE 10:20
PROVIDERS: ATTEND Surgery
DX: I70.245 Atherosclerosis of native arteries of left leg with ulceration of other part of foot (principal); E11.621 Type 2 diabetes mellitus with foot ulcer; L97.522 Non-pressure chronic ulcer of other part of left foot with fat layer exposed; I70.235 Atherosclerosis of native arteries of right leg with ulceration of other part of foot; L97.511 Non-pressure chronic ulcer of other part of right foot limited to breakdown of skin; E11.622 Type 2 diabetes mellitus with other skin ulcer; I83.012 Varicose veins of right lower extremity with ulcer of calf; L97.811 Non-pressure chronic ulcer of other part of right lower leg limited to breakdown of skin; I83.022 Varicose veins of left lower extremity with ulcer of calf; L97.821 Non-pressure chronic ulcer of other part of left lower leg limited to breakdown of skin; T24.232D Burn of second degree of left lower leg, subsequent encounter; S91.202D Unspecified open wound of left great toe with damage to nail, subsequent encounter; S91.201D Unspecified open wound of right great toe with damage to nail, subsequent encounter; E11.65 Type 2 diabetes mellitus with hyperglycemia; E11.40 Type 2 diabetes mellitus with diabetic neuropathy, unspecified; I10 Essential (primary) hypertension; E78.5 Hyperlipidemia, unspecified; E03.9 Hypothyroidism, unspecified; M19.90 Unspecified osteoarthritis, unspecified site; G30.9 Alzheimer's disease, unspecified; M10.9 Gout, unspecified; I87.2 Venous insufficiency (chronic) (peripheral); F02.81 Dementia in other diseases classified elsewhere, unspecified severity, with behavioral disturbance; Z86.73 Personal history of transient ischemic attack (TIA), and cerebral infarction without residual deficits; Z90.49 Acquired absence of other specified parts of digestive tract; Z90.710 Acquired absence of both cervix and uterus; Z96.611 Presence of right artificial shoulder joint; X08.8XXD Exposure to other specified smoke, fire and flames, subsequent encounter; X58.XXXD Exposure to other specified factors, subsequent encounter
CPT/HCPCS: 15271; 97597; A6209; Q4186; A4663; A6021; A6154; A6196; A6250; A6446

== ENCOUNTER 2019-05-13 13:53 | Outpatient (CLI) | payer MEDICARE, BC | END 2019-05-13 23:59 | disposition home or self-care (01) | LOC: RAD 13:53 | PROVIDERS: ATTEND Family Medicine | DX: I63.89 Other cerebral infarction (principal); R90.82 White matter disease, unspecified; R53.1 Weakness | CPT/HCPCS: 70551 ==

== ENCOUNTER 2019-05-16 11:05 | Day surgery (SDC) | payer MEDICARE, BC ==
[2019-05-16] MEDS ORDERED: LIDOcaine 2% 5ml jelly ONE (11:56)
== END 2019-05-16 13:40 | disposition home or self-care (01) ==
LOC: WOUND CARE 11:05
PROVIDERS: ATTEND Surgery
DX: I70.245 Atherosclerosis of native arteries of left leg with ulceration of other part of foot (principal); E11.621 Type 2 diabetes mellitus with foot ulcer; L97.522 Non-pressure chronic ulcer of other part of left foot with fat layer exposed; I70.235 Atherosclerosis of native arteries of right leg with ulceration of other part of foot; L97.511 Non-pressure chronic ulcer of other part of right foot limited to breakdown of skin; E11.622 Type 2 diabetes mellitus with other skin ulcer; I83.012 Varicose veins of right lower extremity with ulcer of calf; L97.811 Non-pressure chronic ulcer of other part of right lower leg limited to breakdown of skin; I83.022 Varicose veins of left lower extremity with ulcer of calf; L97.821 Non-pressure chronic ulcer of other part of left lower leg limited to breakdown of skin; T24.232D Burn of second degree of left lower leg, subsequent encounter; S91.202D Unspecified open wound of left great toe with damage to nail, subsequent encounter; S91.201D Unspecified open wound of right great toe with damage to nail, subsequent encounter; E11.65 Type 2 diabetes mellitus with hyperglycemia; E11.40 Type 2 diabetes mellitus with diabetic neuropathy, unspecified; I10 Essential (primary) hypertension; E78.5 Hyperlipidemia, unspecified; E03.9 Hypothyroidism, unspecified; M19.90 Unspecified osteoarthritis, unspecified site; G30.9 Alzheimer's disease, unspecified; M10.9 Gout, unspecified; I87.2 Venous insufficiency (chronic) (peripheral); F02.81 Dementia in other diseases classified elsewhere, unspecified severity, with behavioral disturbance; Z86.73 Personal history of transient ischemic attack (TIA), and cerebral infarction without residual deficits; Z90.49 Acquired absence of other specified parts of digestive tract; Z90.710 Acquired absence of both cervix and uterus; Z96.611 Presence of right artificial shoulder joint; X08.8XXD Exposure to other specified smoke, fire and flames, subsequent encounter; X58.XXXD Exposure to other specified factors, subsequent encounter
CPT/HCPCS: 15271; A6209; Q4133; A4663; A6021; A6154; A6250; A6446

== ENCOUNTER 2019-05-18 05:14 | Inpatient (IN) | payer MEDICARE, BC ==
[~2019-05-18] VITALS: Ht 162.6 cm; Wt 106.8 kg
--- NOTE | 2019-05-18 05:39 | NUR ---
PT HAS BILATERAL LOWER EXTREMITY SWELLING WITH DRESSINGS, PT REFUSING TO ALLOW RN TO REMOVE THE BANDAGES , PT REPORTS SHE GOES TO WOUND CARE WEEKLY AND KNOWS THEY ARE NOT INFECTED BECAUSE THEY SAID SO.
[2019-05-18 05:41] LABS: CLARITY,URINE CLEAR (Clear); COLOR,URINE STRAW (Yellow); GLUCOSE, URINE NEGATIVE (Neg); KETONES,URINE NEGATIVE (Neg); LEUKOCYTE ESTERASE ,URINE NEGATIVE (Neg); NITRITES, URINE NEGATIVE (Neg); OCCULT BLOOD,URINE NEGATIVE (Neg); PROTEIN,URINE NEGATIVE (Neg); UROBILINOGEN,URINE 0.2 E.U/dL (0.2-1.0)
[2019-05-18 05:42] LABS: BASOPHILS # (AUTO) 0.1 X10'3 (0-0.2); BASOPHILS % (AUTO) 1.1 % (0-1); EOSINOPHILS # (AUTO) 0.4 X10'3 (0-0.9); EOSINOPHILS % (AUTO) 7.1 % (0-6); HEMATOCRIT 31.5 % (35.0-45.0); HEMOGLOBIN 10.6 g/dl (12.0-16.0); LYMPHOCYTES # (AUTO) 1.6 X10'3 (1.1-4.8); LYMPHOCYTES % (AUTO) 25.4 % (21-51); MEAN CORPUSCULAR HEMOGLOBIN 27.4 PG (27.0-31.0); MEAN CORPUSCULAR HGB CONC 33.5 g/dL (33.0-36.5); MEAN CORPUSCULAR VOLUME 81.8 FL (78-98); MEAN PLATELET VOLUME 8.5 FL (7.4-10.4); MONOCYTES # (AUTO) 0.6 X10'3 (0-0.9); MONOCYTES % (AUTO) 9.4 % (2-12); NEUTROPHILS # (AUTO) 3.6 X10'3 (1.8-7.7); PLATELET COUNT 213 X10'3 (140-440); RED BLOOD COUNT 3.85 X10'6 (4.20-5.60); RED CELL DISTRIBUTION WIDTH 15.7 % (11.5-14.5); WHITE BLOOD COUNT 6.3 X10'3 (4.5-11.0)
[2019-05-18 05:59] LABS: ALANINE AMINOTRANSFERASE 19 U/L (12-78); ALBUMIN 3.5 G/DL (3.4-5.0); ALBUMIN/GLOBULIN RATIO 0.9 (1.1-1.5); ALKALINE PHOSPHATASE 91 IU/L (46-116); ANION GAP 9 (8-16); ASPARTATE AMINO TRANSFERASE 15 U/L (10-37); BILIRUBIN,TOTAL 0.2 MG/DL (0.1-1.0); BLOOD UREA NITROGEN 29 MG/DL (7-18); BUN/CREATININE RATIO 25.9 (6.6-38.0); CALCIUM 9.3 MG/DL (8.5-10.1); CHLORIDE 103 MMOL/L (99-107); CREATININE 1.12 MG/DL (0.40-0.90); GLUCOSE 202 MG/DL (70-104); POTASSIUM 4.4 MMOL/L (3.5-5.1); SODIUM 140 MMOL/L (135-145); TOTAL CARBON DIOXIDE 28.4 MMOL/L (24-32); TOTAL PROTEIN 7.6 G/DL (6.4-8.2); eGFR 46 ML/MIN
[2019-05-18 06:02] LABS: UA COLLECTION TYPE STRAIGHT CATH
[2019-05-18 07:04] LABS: PHOSPHORUS 4.3 MG/DL (2.3-4.5)
[2019-05-18] MEDS ORDERED: aspirin 325mg tablet PO ONE (08:00)
[2019-05-18] MEDS ORDERED: magnesium hydroxide 30ml (MOM) UD suspension PO PRN (10:35)
[2019-05-18] MEDS ORDERED: HYDROcodone/acetaminophen 5mg/325mg tablet PO PRN (10:35)
[2019-05-18] MEDS ORDERED: dextrose ORAL solution 15 GM/59 ML bottle PO PRN ×2 (10:35)
[2019-05-18] MEDS ORDERED: dextrose 50%-water 50ml dispensing syringe IV PRN ×2 (10:35)
[2019-05-18] MEDS ORDERED: diphenhydrAMINE 50 mg/ml inj IV PRN (10:35)
[2019-05-18] MEDS ORDERED: atorvastatin 10mg tablet PO SCH (10:35)
[2019-05-18] MEDS ORDERED: acetaminophen 650mg rectal suppository RC PRN (10:35)
[2019-05-18] MEDS ORDERED: glucagon, human recombinant 1mg kit SUBCUT PRN (10:35)
[2019-05-18] MEDS ORDERED: ondansetron/PF 4mg/2ml inj IV PRN (10:35)
[2019-05-18] MEDS ORDERED: potassium Cl 20 mEq SR tablet PO PRN ×2 (10:35)
[2019-05-18] MEDS ORDERED: magnesium 4gm in 100ml NS 100 ML IV PRN (10:35)
[2019-05-18] MEDS ORDERED: mag hydrox/Alum hydrox/simeth 30ml oral suspension PO PRN (10:35)
[2019-05-18] MEDS ORDERED: bisacodyl 10mg suppository rectal RC PRN (10:35)
[2019-05-18] MEDS ORDERED: diphenhydrAMINE 25mg capsule PO PRN (10:35)
[2019-05-18] MEDS ORDERED: MESSAGE TO PHARMACY PO ONE (10:35)
[2019-05-18] MEDS ORDERED: magnesium Cl slow-release 64mg tablet PO PRN (10:35)
[2019-05-18] MEDS ORDERED: acetaminophen 325mg tablet PO PRN ×2 (10:35)
[2019-05-18] MEDS ORDERED: magnesium 2GM in 50ml NS 50 ML IV PRN (10:35)
[2019-05-18] MEDS ORDERED: potassium CL 10mEq/100ml bag 100 ML IV PRN ×2 (10:35)
[2019-05-18] MEDS ORDERED: morphine 2 MG/ML inj. syringe IV PRN ×2 (10:35)
--- NOTE | 2019-05-18 10:46 | NUR ---
TELE NEURO HAS BEEN INITIATED
[2019-05-18 11:06] LABS: CHOL/HDL RATIO 4.9 (0.00-4.99); CHOLESTEROL 226 MG/DL (0-200); HDL CHOLESTEROL 46 MG/DL (35-60); LDL CHOLESTEROL 151 MG/DL (50-100); TRIGLYCERIDES 174 MG/DL (20-135)
[2019-05-18 11:11] LABS: HEMOGLOBIN A1C 7.9 % (4.5-6.2)
[2019-05-18] MEDS: normal saline 1000ml 1,000 ML IV SCH ×2 (11:18→20:19)
[2019-05-18] MEDS: K and/or MAG REPLACEMENT MC SCH (11:34)
[2019-05-18] MEDS ORDERED: NITR0.4T48 SL (11:37)
[2019-05-18] MEDS ORDERED: non-formulary drug (Acetaminophen (Mapap) 1 CAP) PO PRN (11:50)
[2019-05-18] MEDS ORDERED: benzocaine/menthol oral lozeng 1 EACH BOX MM PRN (11:50)
[2019-05-18] MEDS ORDERED: nitroGLYCERIN 0.4mg SUBLingual tab SL PRN (11:50)
[2019-05-18 13:30] VITALS: BP 154/45
--- NOTE | 2019-05-18 18:20 | NUR ---
Patient in room ORTHO 4009. I have received report from INEZ Baeza and had the opportunity to ask questions and assume patient care.
[2019-05-18 20:00] VITALS: BP_SYST 118; BP_SYST 142; BP_DIAS 37; BP_DIAS 48
[2019-05-18] MEDS: heparin, porcine 5000 units/ml vial SQ SCH (20:18)
[2019-05-18] MEDS: carvedilol 6.25mg tablet PO SCH (20:19)
[2019-05-18] MEDS: HYDROcodone/acetaminophen 10/325mg tab PO PRN (20:19)
[2019-05-18] MEDS: pregabalin 75mg capsule PO SCH (20:19)
[2019-05-18] MEDS: insulin glargine (Lantus) pen - multi-dose SQ SCH (21:00)
--- NOTE | 2019-05-18 21:00 | NUR ---
Pt. refused her blood sugar to be check for 2100.
[2019-05-18 22:00] VITALS: BP 118/37
[2019-05-19] VITALS (8 sets, daily range): BP systolic 129–178; BP diastolic 40–92
[2019-05-19] MEDS: normal saline 1000ml 1,000 ML IV SCH ×2 (05:08→16:34)
[2019-05-19 06:16] LABS: BASOPHILS % (AUTO) 0.8 % (0-1); EOSINOPHILS # (AUTO) 0.5 X10'3 (0-0.9); HEMOGLOBIN 9.5 g/dl (12.0-16.0); LYMPHOCYTES # (AUTO) 1.7 X10'3 (1.1-4.8); LYMPHOCYTES % (AUTO) 28.6 % (21-51); MEAN CORPUSCULAR HEMOGLOBIN 26.9 PG (27.0-31.0); MEAN CORPUSCULAR HGB CONC 32.7 g/dL (33.0-36.5); MEAN CORPUSCULAR VOLUME 82.3 FL (78-98); MEAN PLATELET VOLUME 8.6 FL (7.4-10.4); MONOCYTES # (AUTO) 0.6 X10'3 (0-0.9); NEUTROPHILS # (AUTO) 3.2 X10'3 (1.8-7.7); NEUTROPHILS % (AUTO) 52.6 % (42-75); PLATELET COUNT 188 X10'3 (140-440); RED BLOOD COUNT 3.52 X10'6 (4.20-5.60); RED CELL DISTRIBUTION WIDTH 15.4 % (11.5-14.5)
--- NOTE | 2019-05-19 06:21 | NUR ---
Problems reprioritized. Patient report given, questions answered & plan of care reviewed with INEZ Wyman.
[2019-05-19 07:14] LABS: ALANINE AMINOTRANSFERASE 14 U/L (12-78); ALBUMIN 2.9 G/DL (3.4-5.0); ALBUMIN/GLOBULIN RATIO 0.8 (1.1-1.5); ALKALINE PHOSPHATASE 72 IU/L (46-116); ANION GAP 10 (8-16); ASPARTATE AMINO TRANSFERASE 16 U/L (10-37); BILIRUBIN,TOTAL 0.3 MG/DL (0.1-1.0); BLOOD UREA NITROGEN 22 MG/DL (7-18); CALCIUM 8.7 MG/DL (8.5-10.1); CHLORIDE 106 MMOL/L (99-107); CHOL/HDL RATIO 5.1 (0.00-4.99); CHOLESTEROL 197 MG/DL (0-200); GLUCOSE 174 MG/DL (70-104); HDL CHOLESTEROL 39 MG/DL (35-60); LDL CHOLESTEROL 125 MG/DL (50-100); MAGNESIUM 1.7 MG/DL (1.5-2.4); PHOSPHORUS 3.6 MG/DL (2.3-4.5); POTASSIUM 4.1 MMOL/L (3.5-5.1); SODIUM 141 MMOL/L (135-145); TOTAL PROTEIN 6.5 G/DL (6.4-8.2); TRIGLYCERIDES 181 MG/DL (20-135); eGFR 53 ML/MIN
[2019-05-19] MEDS: K and/or MAG REPLACEMENT MC SCH (08:00)
[2019-05-19] MEDS: furosemide 20MG tablet PO SCH (08:00)
[2019-05-19] MEDS ORDERED: non-formulary drug (Levothyroxine Sodium 1 TAB) PO SCH (08:00)
[2019-05-19] MEDS: aspirin 81mg tablet.DR PO SCH ×2 (08:00→08:03)
[2019-05-19] MEDS: carvedilol 6.25mg tablet PO SCH ×2 (08:00→20:05)
[2019-05-19] MEDS: atorvastatin 20mg tablet PO SCH ×2 (08:00→08:03)
[2019-05-19] MEDS ORDERED: non-formulary drug (Aspirin (Aspir 81) 1 TAB) PO SCH (08:00)
[2019-05-19] MEDS: clopidogrel 75mg tablet PO SCH (08:04)
[2019-05-19] MEDS: heparin, porcine 5000 units/ml vial SQ SCH ×2 (08:05→20:05)
[2019-05-19] MEDS: levoTHYROXINE 25mcg tablet PO SCH (08:05)
--- NOTE | 2019-05-19 12:30 | NUR ---
pt refuses to have her blood glucose checked
--- NOTE | 2019-05-19 14:52 | NUR ---
PAGER ID: [phone] MESSAGE: Zamzam Lockwood9 [address] [place] in [phone]- could you call me to discuss a couple concerns? Thank you Addendum: 05/19/19 at 1456 by Charlene Rangel RN Spoke with MD regarding BP medication and refusal to have blood sugar checked
--- NOTE | 2019-05-19 16:39 | NUR ---
Malnutrition/DM consults: A1C 7.9. Pt seen by RD and provided written/verbal DM ed w/ RD contact information. Pt states "works very hard" to keep DM under control. Pt has no visible muscle/fat wasting, no significant weakness, mild BLE edema, and PO 75% avg meals meeting needs. Pt does not meet malnutrition criteria at this time. Will continue to monitor. Addendum: 05/19/19 at [address] Amended: Links added.
--- NOTE | 2019-05-19 18:15 | NUR ---
Patient in room ORTHO 4009. I have received report from INEZ Wyman and had the opportunity to ask questions and assume patient care.
[2019-05-19] MEDS: pregabalin 75mg capsule PO SCH (20:05)
[2019-05-19] MEDS: insulin glargine (Lantus) pen - multi-dose SQ SCH (21:00)
--- NOTE | 2019-05-19 21:00 | NUR ---
PT. REFUSED HER BLOOD SUGAR TO BE CHECKED AT 2100.WE WILL CONTINUE WITH PTRenetta MERCADO.
[2019-05-20] MEDS: normal saline 1000ml 1,000 ML IV SCH ×2 (01:48→23:03)
--- NOTE | 2019-05-20 02:27 | NUR ---
Pt. refused to be reposition q 2 hours .We will follow up with pt. care.
[2019-05-20 06:00] VITALS: BP 185/89
[2019-05-20 06:16] LABS: BASOPHILS # (AUTO) 0.1 X10'3 (0-0.2); BASOPHILS % (AUTO) 0.7 % (0-1); EOSINOPHILS # (AUTO) 0.6 X10'3 (0-0.9); EOSINOPHILS % (AUTO) 8.6 % (0-6); HEMATOCRIT 31.3 % (35.0-45.0); HEMOGLOBIN 10.4 g/dl (12.0-16.0); LYMPHOCYTES # (AUTO) 1.6 X10'3 (1.1-4.8); LYMPHOCYTES % (AUTO) 23.6 % (21-51); MEAN CORPUSCULAR HEMOGLOBIN 27.2 PG (27.0-31.0); MEAN CORPUSCULAR HGB CONC 33.3 g/dL (33.0-36.5); MEAN CORPUSCULAR VOLUME 81.9 FL (78-98); MEAN PLATELET VOLUME 8.6 FL (7.4-10.4); MONOCYTES # (AUTO) 0.7 X10'3 (0-0.9); MONOCYTES % (AUTO) 9.9 % (2-12); NEUTROPHILS # (AUTO) 3.9 X10'3 (1.8-7.7); NEUTROPHILS % (AUTO) 57.2 % (42-75); PLATELET COUNT 201 X10'3 (140-440); RED BLOOD COUNT 3.82 X10'6 (4.20-5.60); RED CELL DISTRIBUTION WIDTH 15.7 % (11.5-14.5); WHITE BLOOD COUNT 6.9 X10'3 (4.5-11.0)
--- NOTE | 2019-05-20 06:46 | NUR ---
Problems reprioritized. Patient report given, questions answered & plan of care reviewed with INEZ Solorzano.
[2019-05-20 06:49] LABS: ALANINE AMINOTRANSFERASE 15 U/L (12-78); ALBUMIN 2.8 G/DL (3.4-5.0); ALBUMIN/GLOBULIN RATIO 0.7 (1.1-1.5); ALKALINE PHOSPHATASE 79 IU/L (46-116); ANION GAP 9 (8-16); ASPARTATE AMINO TRANSFERASE 18 U/L (10-37); BILIRUBIN,TOTAL 0.3 MG/DL (0.1-1.0); BLOOD UREA NITROGEN 18 MG/DL (7-18); BUN/CREATININE RATIO 19.1 (6.6-38.0); CALCIUM 8.9 MG/DL (8.5-10.1); CHLORIDE 108 MMOL/L (99-107); CREATININE 0.94 MG/DL (0.40-0.90); GLUCOSE 183 MG/DL (70-104); MAGNESIUM 1.9 MG/DL (1.5-2.4); PHOSPHORUS 2.9 MG/DL (2.3-4.5); POTASSIUM 4.2 MMOL/L (3.5-5.1); SODIUM 141 MMOL/L (135-145); TOTAL CARBON DIOXIDE 24.1 MMOL/L (24-32); TOTAL PROTEIN 6.7 G/DL (6.4-8.2); eGFR 57 ML/MIN
--- NOTE | 2019-05-20 06:54 | NUR ---
Patient in room ORTHO 4009. I have received report from Enid WILEY and had the opportunity to ask questions and assume patient care.
[2019-05-20] MEDS: carvedilol 6.25mg tablet PO SCH ×2 (07:51→20:26)
[2019-05-20] MEDS: furosemide 20MG tablet PO SCH (07:51)
[2019-05-20] MEDS: aspirin 81mg tablet.DR PO SCH ×2 (07:52→07:54)
[2019-05-20] MEDS: atorvastatin 20mg tablet PO SCH (07:52)
[2019-05-20] MEDS: clopidogrel 75mg tablet PO SCH (07:53)
[2019-05-20] MEDS: heparin, porcine 5000 units/ml vial SQ SCH ×2 (07:53→20:25)
[2019-05-20] MEDS: levoTHYROXINE 25mcg tablet PO SCH (07:53)
[2019-05-20] MEDS: K and/or MAG REPLACEMENT MC SCH (07:54)
[2019-05-20 10:00] VITALS: BP 155/54
--- NOTE | 2019-05-20 11:01 | NUR ---
Rashad [id number] Re: Ricardo. 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 notified.
[2019-05-20] MEDS: HYDROcodone/acetaminophen 10/325mg tab PO PRN ×2 (11:32→23:09)
[2019-05-20] MEDS: insulin Lispro (HumaLOG) vial - multi-dose SQ SCH ×2 (13:52→18:49)
--- NOTE | 2019-05-20 15:52 | NUR ---
WOUND INFECTION EDUCATION PROVIDED BY WOUND CARE 1. Patient instructed to call their primary doctor, or go the ED immediately if any of the following symptoms occur: * Increased pain in wound * Increase in drainage from the wound * Redness in the skin surrounding the wound * Warmth in the skin surrounding the wound * Bleeding from the wound * Temperature of 101 or greater 2. If any of these occur while in the hospital tell a nurse immediately. Addendum: 05/20/19 at 1553 by Chula Colón RN Amended: Links added.
[2019-05-20 18:00] VITALS: BP 177/74
--- NOTE | 2019-05-20 18:17 | NUR ---
Problems reprioritized. Patient report given, questions answered & plan of care reviewed with Cee WILEY and student Lisa.
--- NOTE | 2019-05-20 19:44 | NUR ---
Patient in room ORTHO 4009. I have received report from INEZ Mike and had the opportunity to ask questions and assume patient care.
[2019-05-20 20:00] VITALS: BP_SYST 133; BP_SYST 140; BP_SYST 170; BP_DIAS 49; BP_DIAS 61; BP_DIAS 70
[2019-05-20] MEDS: pregabalin 75mg capsule PO SCH (20:25)
[2019-05-20 21:00] VITALS: BP_SYST 140; BP_SYST 170; BP_DIAS 49; BP_DIAS 61
[2019-05-20] MEDS: insulin glargine (Lantus) pen - multi-dose SQ SCH (22:29)
[2019-05-21 06:00] VITALS: BP 175/69
--- NOTE | 2019-05-21 06:10 | NUR ---
Problems reprioritized. Patient report given, questions answered & plan of care reviewed with INEZ Mesa.
[2019-05-21 06:30] LABS: BASOPHILS % (AUTO) 0.7 % (0-1); EOSINOPHILS # (AUTO) 0.4 X10'3 (0-0.9); EOSINOPHILS % (AUTO) 5.7 % (0-6); HEMATOCRIT 27.9 % (35.0-45.0); HEMOGLOBIN 9.6 g/dl (12.0-16.0); LYMPHOCYTES % (AUTO) 30.2 % (21-51); MEAN CORPUSCULAR HEMOGLOBIN 27.8 PG (27.0-31.0); MEAN CORPUSCULAR HGB CONC 34.4 g/dL (33.0-36.5); MEAN CORPUSCULAR VOLUME 80.7 FL (78-98); MEAN PLATELET VOLUME 8.4 FL (7.4-10.4); MONOCYTES # (AUTO) 0.8 X10'3 (0-0.9); MONOCYTES % (AUTO) 12.7 % (2-12); NEUTROPHILS # (AUTO) 3.4 X10'3 (1.8-7.7); NEUTROPHILS % (AUTO) 50.7 % (42-75); PLATELET COUNT 202 X10'3 (140-440); RED BLOOD COUNT 3.46 X10'6 (4.20-5.60); RED CELL DISTRIBUTION WIDTH 15.4 % (11.5-14.5); WHITE BLOOD COUNT 6.7 X10'3 (4.5-11.0)
[2019-05-21 06:43] LABS: ALANINE AMINOTRANSFERASE 14 U/L (12-78); ALBUMIN 2.7 G/DL (3.4-5.0); ALBUMIN/GLOBULIN RATIO 0.7 (1.1-1.5); ALKALINE PHOSPHATASE 84 IU/L (46-116); ANION GAP 7 (8-16); ASPARTATE AMINO TRANSFERASE 15 U/L (10-37); BILIRUBIN,TOTAL 0.3 MG/DL (0.1-1.0); BLOOD UREA NITROGEN 17 MG/DL (7-18); BUN/CREATININE RATIO 16.8 (6.6-38.0); CALCIUM 8.1 MG/DL (8.5-10.1); CHLORIDE 107 MMOL/L (99-107); CREATININE 1.01 MG/DL (0.40-0.90); GLUCOSE 148 MG/DL (70-104); MAGNESIUM 1.6 MG/DL (1.5-2.4); PHOSPHORUS 2.9 MG/DL (2.3-4.5); SODIUM 142 MMOL/L (135-145); TOTAL CARBON DIOXIDE 28.3 MMOL/L (24-32); TOTAL PROTEIN 6.4 G/DL (6.4-8.2); eGFR 52 ML/MIN
--- NOTE | 2019-05-21 06:45 | NUR ---
Patient in room ORTHO 4009. I have received report from Halmia WILEY and had the opportunity to ask questions and assume patient care.
[2019-05-21] MEDS: aspirin 81mg tablet.DR PO SCH ×2 (08:00→08:11)
[2019-05-21] MEDS: atorvastatin 20mg tablet PO SCH (08:00)
[2019-05-21] MEDS: clopidogrel 75mg tablet PO SCH (08:10)
[2019-05-21] MEDS: furosemide 20MG tablet PO SCH (08:11)
[2019-05-21] MEDS: heparin, porcine 5000 units/ml vial SQ SCH (08:12)
[2019-05-21] MEDS: carvedilol 6.25mg tablet PO SCH (08:13)
[2019-05-21] MEDS: levoTHYROXINE 25mcg tablet PO SCH (08:17)
[2019-05-21] MEDS: K and/or MAG REPLACEMENT MC SCH (08:21)
[2019-05-21] MEDS: insulin Lispro (HumaLOG) vial - multi-dose SQ SCH ×2 (08:48→14:00)
[2019-05-21 10:00] VITALS: BP 123/64
--- NOTE | 2019-05-21 17:00 | NUR ---
Safe DC with [facility] personnel. all personal items with patient.
== END 2019-05-21 16:00 | DRG 65 ==
LOC: ER 05:15 → ORTHO 4S 13:11
PROVIDERS: ADMIT Family Medicine; ATTEND Family Medicine
DX: I63.89 Other cerebral infarction (principal); N17.9 Acute kidney failure, unspecified; Z68.41 Body mass index [BMI] 40.0-44.9, adult; G81.94 Hemiplegia, unspecified affecting left nondominant side; E11.51 Type 2 diabetes mellitus with diabetic peripheral angiopathy without gangrene; D64.9 Anemia, unspecified; E03.9 Hypothyroidism, unspecified; E11.40 Type 2 diabetes mellitus with diabetic neuropathy, unspecified; E78.00 Pure hypercholesterolemia, unspecified; E78.5 Hyperlipidemia, unspecified; G30.9 Alzheimer's disease, unspecified; F02.80 Dementia in other diseases classified elsewhere, unspecified severity, without behavioral disturbance, psychotic disturbance, mood disturbance, and anxiety; G47.00 Insomnia, unspecified; I25.10 Atherosclerotic heart disease of native coronary artery without angina pectoris; Z60.2 Problems related to living alone; I10 Essential (primary) hypertension; M79.7 Fibromyalgia; Z66 Do not resuscitate; K21.9 Gastro-esophageal reflux disease without esophagitis; J44.9 Chronic obstructive pulmonary disease, unspecified; G89.29 Other chronic pain; M10.9 Gout, unspecified; M19.90 Unspecified osteoarthritis, unspecified site; Z79.82 Long term (current) use of aspirin; Z79.899 Other long term (current) drug therapy; Z79.890 Hormone replacement therapy; Z88.1 Allergy status to other antibiotic agents; Z88.6 Allergy status to analgesic agent; Z79.4 Long term (current) use of insulin; Z86.73 Personal history of transient ischemic attack (TIA), and cerebral infarction without residual deficits; Z87.891 Personal history of nicotine dependence; Z95.1 Presence of aortocoronary bypass graft; Z99.3 Dependence on wheelchair; Z79.84 Long term (current) use of oral hypoglycemic drugs; Z90.49 Acquired absence of other specified parts of digestive tract
CPT/HCPCS: 36415; 70450; 70544; 70551; 71045; 80053; 80061; 81003; 82948; 83036; 83735; 84100; 84443; 85025; 85610; 87081; 92508; 92616; 93005; 93306; 93880; 94667; 94668; 94760; 97110; 97162; 97530; 99285; G0378; J1644; J1815; J7030

== ENCOUNTER 2019-05-30 10:45 | Day surgery (SDC) | payer MEDICARE, BC ==
[~2019-05-30 10:45] MED LIST changes: -ATOR20TA66 PO; +NITR0.4T48 SL; -NITR0.4T51 SL; -PANT-47 PO
[2019-05-30] MEDS ORDERED: LIDOcaine 2% 5ml jelly ONE (11:22)
== END 2019-05-30 12:45 | disposition home or self-care (01) ==
LOC: WOUND CARE 10:45
PROVIDERS: ATTEND Surgery
DX: I70.245 Atherosclerosis of native arteries of left leg with ulceration of other part of foot (principal); E11.621 Type 2 diabetes mellitus with foot ulcer; L97.522 Non-pressure chronic ulcer of other part of left foot with fat layer exposed; I70.235 Atherosclerosis of native arteries of right leg with ulceration of other part of foot; L97.511 Non-pressure chronic ulcer of other part of right foot limited to breakdown of skin; E11.622 Type 2 diabetes mellitus with other skin ulcer; I83.012 Varicose veins of right lower extremity with ulcer of calf; L97.811 Non-pressure chronic ulcer of other part of right lower leg limited to breakdown of skin; I83.022 Varicose veins of left lower extremity with ulcer of calf; L97.821 Non-pressure chronic ulcer of other part of left lower leg limited to breakdown of skin; T24.232D Burn of second degree of left lower leg, subsequent encounter; S91.202D Unspecified open wound of left great toe with damage to nail, subsequent encounter; S91.201D Unspecified open wound of right great toe with damage to nail, subsequent encounter; E11.65 Type 2 diabetes mellitus with hyperglycemia; E11.40 Type 2 diabetes mellitus with diabetic neuropathy, unspecified; I10 Essential (primary) hypertension; E78.5 Hyperlipidemia, unspecified; E03.9 Hypothyroidism, unspecified; M19.90 Unspecified osteoarthritis, unspecified site; G30.9 Alzheimer's disease, unspecified; M10.9 Gout, unspecified; I87.2 Venous insufficiency (chronic) (peripheral); F02.81 Dementia in other diseases classified elsewhere, unspecified severity, with behavioral disturbance; Z86.73 Personal history of transient ischemic attack (TIA), and cerebral infarction without residual deficits; Z90.49 Acquired absence of other specified parts of digestive tract; Z90.710 Acquired absence of both cervix and uterus; Z96.611 Presence of right artificial shoulder joint; X08.8XXD Exposure to other specified smoke, fire and flames, subsequent encounter; X58.XXXD Exposure to other specified factors, subsequent encounter
CPT/HCPCS: 15271; A6222; Q4133; A4663; A6250; A6446

== ENCOUNTER 2019-06-06 09:52 | Day surgery (SDC) | payer MEDICARE, BC ==
[2019-06-06] MEDS ORDERED: LIDOcaine 2% 5ml jelly ONE (11:09)
== END 2019-06-06 13:00 | disposition home or self-care (01) ==
LOC: WOUND CARE 09:52
PROVIDERS: ATTEND Surgery
DX: I70.245 Atherosclerosis of native arteries of left leg with ulceration of other part of foot (principal); E11.621 Type 2 diabetes mellitus with foot ulcer; L97.522 Non-pressure chronic ulcer of other part of left foot with fat layer exposed; I70.235 Atherosclerosis of native arteries of right leg with ulceration of other part of foot; L97.511 Non-pressure chronic ulcer of other part of right foot limited to breakdown of skin; E11.622 Type 2 diabetes mellitus with other skin ulcer; I83.012 Varicose veins of right lower extremity with ulcer of calf; L97.811 Non-pressure chronic ulcer of other part of right lower leg limited to breakdown of skin; I83.022 Varicose veins of left lower extremity with ulcer of calf; L97.821 Non-pressure chronic ulcer of other part of left lower leg limited to breakdown of skin; T24.232D Burn of second degree of left lower leg, subsequent encounter; S91.202D Unspecified open wound of left great toe with damage to nail, subsequent encounter; S91.201D Unspecified open wound of right great toe with damage to nail, subsequent encounter; E11.65 Type 2 diabetes mellitus with hyperglycemia; E11.40 Type 2 diabetes mellitus with diabetic neuropathy, unspecified; I10 Essential (primary) hypertension; E78.5 Hyperlipidemia, unspecified; E03.9 Hypothyroidism, unspecified; M19.90 Unspecified osteoarthritis, unspecified site; G30.9 Alzheimer's disease, unspecified; M10.9 Gout, unspecified; I87.2 Venous insufficiency (chronic) (peripheral); F02.81 Dementia in other diseases classified elsewhere, unspecified severity, with behavioral disturbance; Z86.73 Personal history of transient ischemic attack (TIA), and cerebral infarction without residual deficits; Z90.49 Acquired absence of other specified parts of digestive tract; Z90.710 Acquired absence of both cervix and uterus; Z96.611 Presence of right artificial shoulder joint; X08.8XXD Exposure to other specified smoke, fire and flames, subsequent encounter; X58.XXXD Exposure to other specified factors, subsequent encounter
CPT/HCPCS: 15271; A6222; Q4186; A6021; A6154; A6250; A6446

== ENCOUNTER 2019-06-13 10:16 | Day surgery (SDC) | payer MEDICARE, BC | END 2019-06-13 11:57 | disposition home or self-care (01) | LOC: WOUND CARE 10:16 | PROVIDERS: ATTEND Surgery | DX: I70.245 Atherosclerosis of native arteries of left leg with ulceration of other part of foot (principal); E11.621 Type 2 diabetes mellitus with foot ulcer; L97.522 Non-pressure chronic ulcer of other part of left foot with fat layer exposed; I70.235 Atherosclerosis of native arteries of right leg with ulceration of other part of foot; L97.511 Non-pressure chronic ulcer of other part of right foot limited to breakdown of skin; E11.622 Type 2 diabetes mellitus with other skin ulcer; I83.012 Varicose veins of right lower extremity with ulcer of calf; L97.811 Non-pressure chronic ulcer of other part of right lower leg limited to breakdown of skin; I83.022 Varicose veins of left lower extremity with ulcer of calf; L97.821 Non-pressure chronic ulcer of other part of left lower leg limited to breakdown of skin; S91.302D Unspecified open wound, left foot, subsequent encounter; T24.232D Burn of second degree of left lower leg, subsequent encounter; E11.65 Type 2 diabetes mellitus with hyperglycemia; E11.40 Type 2 diabetes mellitus with diabetic neuropathy, unspecified; I10 Essential (primary) hypertension; E78.5 Hyperlipidemia, unspecified; E03.9 Hypothyroidism, unspecified; M19.90 Unspecified osteoarthritis, unspecified site; G30.9 Alzheimer's disease, unspecified; M10.9 Gout, unspecified; I87.2 Venous insufficiency (chronic) (peripheral); F02.81 Dementia in other diseases classified elsewhere, unspecified severity, with behavioral disturbance; Z86.73 Personal history of transient ischemic attack (TIA), and cerebral infarction without residual deficits; Z90.49 Acquired absence of other specified parts of digestive tract; Z90.710 Acquired absence of both cervix and uterus; Z96.611 Presence of right artificial shoulder joint; X08.8XXD Exposure to other specified smoke, fire and flames, subsequent encounter; X58.XXXD Exposure to other specified factors, subsequent encounter | CPT/HCPCS: 15271; A6209; A6222; Q4133; A4663; A6021; A6250 ==

== ENCOUNTER 2019-06-20 10:10 | Day surgery (SDC) | payer MEDICARE, BC ==
[2019-06-20] MEDS ORDERED: hydrocortisone 1% cream 28gm TP ONE (12:53)
== END 2019-06-20 13:10 | disposition home or self-care (01) ==
LOC: WOUND CARE 10:10
PROVIDERS: ATTEND Surgery
DX: I70.245 Atherosclerosis of native arteries of left leg with ulceration of other part of foot (principal); E11.621 Type 2 diabetes mellitus with foot ulcer; L97.522 Non-pressure chronic ulcer of other part of left foot with fat layer exposed; I70.235 Atherosclerosis of native arteries of right leg with ulceration of other part of foot; L97.511 Non-pressure chronic ulcer of other part of right foot limited to breakdown of skin; E11.622 Type 2 diabetes mellitus with other skin ulcer; I83.012 Varicose veins of right lower extremity with ulcer of calf; L97.811 Non-pressure chronic ulcer of other part of right lower leg limited to breakdown of skin; I83.022 Varicose veins of left lower extremity with ulcer of calf; L97.821 Non-pressure chronic ulcer of other part of left lower leg limited to breakdown of skin; S91.302D Unspecified open wound, left foot, subsequent encounter; T24.232D Burn of second degree of left lower leg, subsequent encounter; E11.65 Type 2 diabetes mellitus with hyperglycemia; E11.40 Type 2 diabetes mellitus with diabetic neuropathy, unspecified; I10 Essential (primary) hypertension; E78.5 Hyperlipidemia, unspecified; E03.9 Hypothyroidism, unspecified; M19.90 Unspecified osteoarthritis, unspecified site; G30.9 Alzheimer's disease, unspecified; M10.9 Gout, unspecified; I87.2 Venous insufficiency (chronic) (peripheral); F02.81 Dementia in other diseases classified elsewhere, unspecified severity, with behavioral disturbance; Z86.73 Personal history of transient ischemic attack (TIA), and cerebral infarction without residual deficits; Z90.49 Acquired absence of other specified parts of digestive tract; Z90.710 Acquired absence of both cervix and uterus; Z96.611 Presence of right artificial shoulder joint; X08.8XXD Exposure to other specified smoke, fire and flames, subsequent encounter; X58.XXXD Exposure to other specified factors, subsequent encounter
CPT/HCPCS: 97597; A6209; A6021; A6154

== ENCOUNTER 2019-06-27 10:54 | Day surgery (SDC) | payer MEDICARE, BC | END 2019-06-27 12:40 | disposition home or self-care (01) | LOC: WOUND CARE 10:54 | PROVIDERS: ATTEND Surgery | DX: E11.622 Type 2 diabetes mellitus with other skin ulcer (principal); I83.012 Varicose veins of right lower extremity with ulcer of calf; L97.811 Non-pressure chronic ulcer of other part of right lower leg limited to breakdown of skin; E11.621 Type 2 diabetes mellitus with foot ulcer; I70.245 Atherosclerosis of native arteries of left leg with ulceration of other part of foot; L97.522 Non-pressure chronic ulcer of other part of left foot with fat layer exposed; I70.235 Atherosclerosis of native arteries of right leg with ulceration of other part of foot; L97.511 Non-pressure chronic ulcer of other part of right foot limited to breakdown of skin; I83.022 Varicose veins of left lower extremity with ulcer of calf; L97.821 Non-pressure chronic ulcer of other part of left lower leg limited to breakdown of skin; T24.232D Burn of second degree of left lower leg, subsequent encounter; E11.65 Type 2 diabetes mellitus with hyperglycemia; E11.40 Type 2 diabetes mellitus with diabetic neuropathy, unspecified; I10 Essential (primary) hypertension; E78.5 Hyperlipidemia, unspecified; E03.9 Hypothyroidism, unspecified; M19.90 Unspecified osteoarthritis, unspecified site; G30.9 Alzheimer's disease, unspecified; M10.9 Gout, unspecified; I87.2 Venous insufficiency (chronic) (peripheral); F02.81 Dementia in other diseases classified elsewhere, unspecified severity, with behavioral disturbance; Z86.73 Personal history of transient ischemic attack (TIA), and cerebral infarction without residual deficits; Z90.49 Acquired absence of other specified parts of digestive tract; Z90.710 Acquired absence of both cervix and uterus; Z96.611 Presence of right artificial shoulder joint; X08.8XXD Exposure to other specified smoke, fire and flames, subsequent encounter | CPT/HCPCS: 97597; A6021; A6154; A6446 ==

== ENCOUNTER 2019-07-04 21:18 | Inpatient (IN) | payer MEDICARE, BC ==
[~2019-07-04] VITALS: Ht 152.4 cm; Wt 84.0 kg
[2019-07-04 21:42] LABS: BASOPHILS # (AUTO) 0.1 X10'3 (0-0.2); BASOPHILS % (AUTO) 0.7 % (0-1); EOSINOPHILS # (AUTO) 0.2 X10'3 (0-0.9); EOSINOPHILS % (AUTO) 2.6 % (0-6); HEMATOCRIT 34.3 % (35.0-45.0); HEMOGLOBIN 11.3 g/dl (12.0-16.0); LYMPHOCYTES # (AUTO) 1.5 X10'3 (1.1-4.8); LYMPHOCYTES % (AUTO) 17.4 % (21-51); MEAN CORPUSCULAR HEMOGLOBIN 25.8 PG (27.0-31.0); MEAN CORPUSCULAR VOLUME 78.1 FL (78-98); MEAN PLATELET VOLUME 8.6 FL (7.4-10.4); MONOCYTES # (AUTO) 0.6 X10'3 (0-0.9); MONOCYTES % (AUTO) 6.9 % (2-12); NEUTROPHILS # (AUTO) 6.4 X10'3 (1.8-7.7); NEUTROPHILS % (AUTO) 72.4 % (42-75); PLATELET COUNT 289 X10'3 (140-440); RED BLOOD COUNT 4.39 X10'6 (4.20-5.60); RED CELL DISTRIBUTION WIDTH 16.3 % (11.5-14.5); WHITE BLOOD COUNT 8.9 X10'3 (4.5-11.0)
[2019-07-04 21:52] LABS: ALANINE AMINOTRANSFERASE 18 U/L (12-78); ALBUMIN 3.6 G/DL (3.4-5.0); ALBUMIN/GLOBULIN RATIO 0.8 (1.1-1.5); ALKALINE PHOSPHATASE 94 IU/L (46-116); ANION GAP 7 (8-16); ASPARTATE AMINO TRANSFERASE 19 U/L (10-37); BILIRUBIN,TOTAL 0.3 MG/DL (0.1-1.0); BLOOD UREA NITROGEN 30 MG/DL (7-18); BUN/CREATININE RATIO 28.3 (6.6-38.0); CALCIUM 9.8 MG/DL (8.5-10.1); CHLORIDE 97 MMOL/L (99-107); CREATININE 1.06 MG/DL (0.40-0.90); GLUCOSE 193 MG/DL (70-104); POTASSIUM 4.6 MMOL/L (3.5-5.1); SODIUM 134 MMOL/L (135-145); TOTAL CARBON DIOXIDE 30.2 MMOL/L (24-32); TOTAL PROTEIN 8.3 G/DL (6.4-8.2); eGFR 49 ML/MIN
[2019-07-04 23:20] LABS: CLARITY,URINE SLIGHTLY CLOUDY (Clear); COLOR,URINE YELLOW (Yellow); GLUCOSE, URINE NEGATIVE (Neg); KETONES,URINE NEGATIVE (Neg); LEUKOCYTE ESTERASE ,URINE NEGATIVE (Neg); NITRITES, URINE NEGATIVE (Neg); OCCULT BLOOD,URINE NEGATIVE (Neg); PROTEIN,URINE NEGATIVE (Neg); UA COLLECTION TYPE STRAIGHT CATH; UROBILINOGEN,URINE 0.2 E.U/dL (0.2-1.0)
[2019-07-04 23:39] LABS: BACTERIA,URINE NONE SEEN /HPF (Neg); SQUAMOUS EPITHELIAL CELL,UR NONE SEEN /LPF (FEW)
[2019-07-04 23:40] LABS: RBC,URINE 0-2 /HPF (0-2); WBC,URINE 0-4 /HPF (0-4)
[2019-07-05] MEDS ORDERED: ondansetron/PF 4mg/2ml inj IV PRN (01:25)
[2019-07-05] MEDS ORDERED: magnesium hydroxide 30ml (MOM) UD suspension PO PRN (01:25)
[2019-07-05] MEDS ORDERED: mag hydrox/Alum hydrox/simeth 30ml oral suspension PO PRN (01:25)
[2019-07-05] MEDS ORDERED: acetaminophen 325mg tablet PO PRN (01:25)
[2019-07-05] MEDS ORDERED: nitroGLYCERIN 0.4mg SUBLingual tab SL PRN (01:30)
[2019-07-05 02:43] VITALS: BP 162/44
--- NOTE | 2019-07-05 06:30 | NUR ---
Patient in room AMINATA 347. I have received report from Tomas WILEY and had the opportunity to ask questions and assume patient care.
--- NOTE | 2019-07-05 06:43 | NUR ---
Problems reprioritized. Patient report given, questions answered & plan of care reviewed with VALARIE. Addendum: 07/05/19 at 0643 by Johny Farrell RN Amended: Links added.
[2019-07-05 07:35] VITALS: BP 173/65
[2019-07-05] MEDS: clopidogrel 75mg tablet PO SCH (08:25)
[2019-07-05] MEDS: aspirin 81mg tablet.DR PO SCH (08:25)
[2019-07-05] MEDS: furosemide 20MG tablet PO SCH (08:25)
[2019-07-05] MEDS: metFORMIN 500mg tablet PO SCH ×3 (08:25→17:40)
[2019-07-05] MEDS: levoTHYROXINE 25mcg tablet PO SCH (08:25)
[2019-07-05] MEDS: carvedilol 6.25mg tablet PO SCH ×2 (08:26→19:34)
[2019-07-05] MEDS: heparin, porcine 5000 units/ml vial SQ SCH ×2 (08:29→19:34)
[2019-07-05] MEDS ORDERED: FLU VACC QS 2019-20 (6 MOS UP) 60 MCG/0.5 ML VIAL IMVAC ONE (10:00)
--- NOTE | 2019-07-05 10:01 | NUR ---
DM consult: Pt with A1c 7.9 recently admitted and seen by RD for written and verbal DM education with referral to outpatient DM class and RD contact information. Pt states she works very hard to keep her DM controlled per past RD note. A1c down from 8.4 in November of this year per records. No further education warranted at this time. Will continue to follow. Addendum: 07/05/19 at [address] Amended: Links added.
[2019-07-05 11:14] VITALS: BP 149/111
--- NOTE | 2019-07-05 18:38 | NUR ---
Problems reprioritized. Patient report given, questions answered & plan of care reviewed with CONSUELO Umana
[2019-07-05] MEDS ORDERED: magnesium 4gm in 100ml NS 100 ML IV PRN (18:40)
[2019-07-05] MEDS ORDERED: potassium Cl 20 mEq SR tablet PO PRN ×2 (18:40)
[2019-07-05] MEDS ORDERED: magnesium Cl slow-release 64mg tablet PO PRN (18:40)
[2019-07-05] MEDS ORDERED: potassium CL 10mEq/100ml bag 100 ML IV PRN (18:40)
[2019-07-05] MEDS ORDERED: pregabalin 75mg capsule PO SCH ×2 (19:00→19:42)
[2019-07-05 20:00] VITALS: BP 160/50
[2019-07-05] MEDS ORDERED: pregabalin 75mg capsule PO ONE (20:25)
[2019-07-06 05:05] LABS: BASOPHILS # (AUTO) 0.1 X10'3 (0-0.2); BASOPHILS % (AUTO) 0.9 % (0-1); EOSINOPHILS # (AUTO) 0.3 X10'3 (0-0.9); EOSINOPHILS % (AUTO) 4.3 % (0-6); HEMATOCRIT 29.1 % (35.0-45.0); HEMOGLOBIN 9.8 g/dl (12.0-16.0); LYMPHOCYTES # (AUTO) 2.3 X10'3 (1.1-4.8); LYMPHOCYTES % (AUTO) 34.4 % (21-51); MEAN CORPUSCULAR HEMOGLOBIN 26.1 PG (27.0-31.0); MEAN CORPUSCULAR HGB CONC 33.6 g/dL (33.0-36.5); MEAN CORPUSCULAR VOLUME 77.8 FL (78-98); MEAN PLATELET VOLUME 8.6 FL (7.4-10.4); MONOCYTES # (AUTO) 0.5 X10'3 (0-0.9); MONOCYTES % (AUTO) 7.4 % (2-12); NEUTROPHILS # (AUTO) 3.5 X10'3 (1.8-7.7); PLATELET COUNT 255 X10'3 (140-440); RED BLOOD COUNT 3.74 X10'6 (4.20-5.60); WHITE BLOOD COUNT 6.5 X10'3 (4.5-11.0)
[2019-07-06 05:17] LABS: ALANINE AMINOTRANSFERASE 18 U/L (12-78); ALBUMIN 3.3 G/DL (3.4-5.0); ALBUMIN/GLOBULIN RATIO 0.8 (1.1-1.5); ALKALINE PHOSPHATASE 82 IU/L (46-116); ANION GAP 8 (8-16); ASPARTATE AMINO TRANSFERASE 21 U/L (10-37); BILIRUBIN,TOTAL 0.3 MG/DL (0.1-1.0); BLOOD UREA NITROGEN 28 MG/DL (7-18); BUN/CREATININE RATIO 26.9 (6.6-38.0); CALCIUM 9.3 MG/DL (8.5-10.1); CHLORIDE 100 MMOL/L (99-107); CREATININE 1.04 MG/DL (0.40-0.90); GLUCOSE 119 MG/DL (70-104); MAGNESIUM 1.7 MG/DL (1.5-2.4); POTASSIUM 3.7 MMOL/L (3.5-5.1); SODIUM 138 MMOL/L (135-145); TOTAL CARBON DIOXIDE 30.5 MMOL/L (24-32); TOTAL PROTEIN 7.3 G/DL (6.4-8.2); eGFR 50 ML/MIN
--- NOTE | 2019-07-06 06:08 | NUR ---
Patient in room AMINATA 350. I have received report from Jyoti Rogel RN and had the opportunity to ask questions and assume patient care.
--- NOTE | 2019-07-06 06:08 | NUR ---
Problems reprioritized. Patient report given, questions answered & plan of care reviewed with INEZ grider.
[2019-07-06 07:00] VITALS: BP 166/55
[2019-07-06] MEDS: levoTHYROXINE 25mcg tablet PO SCH (07:15)
[2019-07-06] MEDS: metFORMIN 500mg tablet PO SCH ×3 (07:15→17:35)
[2019-07-06] MEDS ORDERED: hydrALAZINE 20mg/ml inj. IV PRN (07:55)
[2019-07-06] MEDS: heparin, porcine 5000 units/ml vial SQ SCH ×2 (08:08→19:40)
[2019-07-06] MEDS: furosemide 20MG tablet PO SCH (08:08)
[2019-07-06] MEDS: aspirin 81mg tablet.DR PO SCH (08:08)
[2019-07-06] MEDS: clopidogrel 75mg tablet PO SCH (08:08)
[2019-07-06] MEDS: carvedilol 6.25mg tablet PO SCH ×2 (08:08→19:40)
[2019-07-06 11:00] VITALS: BP 124/45
[2019-07-06 11:30] VITALS: BP 124/45
--- NOTE | 2019-07-06 12:11 | NUR ---
Received report from Layla, Student RN
[2019-07-06] MEDS ORDERED: HYDROcodone/acetaminophen 5mg/325mg tablet PO PRN (14:15)
--- NOTE | 2019-07-06 17:57 | NUR ---
Student documentation: I have reviewed and agree with assessments performed and documented by Jolanta Student Nurse.
--- NOTE | 2019-07-06 18:55 | NUR ---
Problems reprioritized. Patient report given, questions answered & plan of care reviewed with INEZ Dacosta.
--- NOTE | 2019-07-06 18:55 | NUR ---
Patient in room AMINATA 350A. I have received report from INEZ Arellano and had the opportunity to ask questions and assume patient care. Pt is Al & O X4, denies CP, SOB, dizziness, n/v, and rated pain 0/10.
[2019-07-06 20:00] VITALS: BP 131/50
[2019-07-07] VITALS: BP 135/52
[2019-07-07 05:01] LABS: BASOPHILS % (AUTO) 0.6 % (0-1); EOSINOPHILS # (AUTO) 0.3 X10'3 (0-0.9); EOSINOPHILS % (AUTO) 3.7 % (0-6); HEMATOCRIT 29.2 % (35.0-45.0); HEMOGLOBIN 9.7 g/dl (12.0-16.0); LYMPHOCYTES # (AUTO) 1.9 X10'3 (1.1-4.8); LYMPHOCYTES % (AUTO) 23.1 % (21-51); MEAN CORPUSCULAR HEMOGLOBIN 25.8 PG (27.0-31.0); MEAN CORPUSCULAR HGB CONC 33.1 g/dL (33.0-36.5); MEAN CORPUSCULAR VOLUME 77.8 FL (78-98); MEAN PLATELET VOLUME 8.5 FL (7.4-10.4); MONOCYTES # (AUTO) 0.6 X10'3 (0-0.9); MONOCYTES % (AUTO) 7.8 % (2-12); NEUTROPHILS # (AUTO) 5.4 X10'3 (1.8-7.7); NEUTROPHILS % (AUTO) 64.8 % (42-75); PLATELET COUNT 234 X10'3 (140-440); RED BLOOD COUNT 3.75 X10'6 (4.20-5.60); RED CELL DISTRIBUTION WIDTH 16.7 % (11.5-14.5); WHITE BLOOD COUNT 8.3 X10'3 (4.5-11.0)
[2019-07-07 05:16] LABS: ALANINE AMINOTRANSFERASE 15 U/L (12-78); ALBUMIN/GLOBULIN RATIO 0.8 (1.1-1.5); ALKALINE PHOSPHATASE 84 IU/L (46-116); ANION GAP 7 (8-16); ASPARTATE AMINO TRANSFERASE 18 U/L (10-37); BILIRUBIN,TOTAL 0.3 MG/DL (0.1-1.0); BLOOD UREA NITROGEN 27 MG/DL (7-18); BUN/CREATININE RATIO 28.7 (6.6-38.0); CALCIUM 9.2 MG/DL (8.5-10.1); CHLORIDE 99 MMOL/L (99-107); CREATININE 0.94 MG/DL (0.40-0.90); GLUCOSE 129 MG/DL (70-104); MAGNESIUM 1.5 MG/DL (1.5-2.4); POTASSIUM 3.8 MMOL/L (3.5-5.1); SODIUM 136 MMOL/L (135-145); TOTAL CARBON DIOXIDE 30.5 MMOL/L (24-32); TOTAL PROTEIN 6.9 G/DL (6.4-8.2); eGFR 57 ML/MIN
--- NOTE | 2019-07-07 06:26 | NUR ---
Patient in room AMINATA 350. I have received report from INEZ Dacosta and had the opportunity to ask questions and assume patient care.
--- NOTE | 2019-07-07 06:29 | NUR ---
Problems reprioritized. Patient report given, questions answered & plan of care reviewed with INEZ Arellano. Pt stable at shift change.
[2019-07-07] MEDS: metFORMIN 500mg tablet PO SCH ×2 (07:02→12:17)
[2019-07-07] MEDS: levoTHYROXINE 25mcg tablet PO SCH (07:03)
[2019-07-07 07:23] VITALS: BP 174/46
[2019-07-07] MEDS: carvedilol 6.25mg tablet PO SCH (08:06)
[2019-07-07] MEDS: furosemide 20MG tablet PO SCH (08:08)
[2019-07-07] MEDS: clopidogrel 75mg tablet PO SCH (08:08)
[2019-07-07] MEDS: aspirin 81mg tablet.DR PO SCH (08:08)
[2019-07-07] MEDS: heparin, porcine 5000 units/ml vial SQ SCH (08:09)
--- NOTE | 2019-07-07 09:30 | NUR ---
Replaced urinary WIC
[2019-07-07] MEDS ORDERED: HYDR-4383 PO (11:06)
--- NOTE | 2019-07-07 11:29 | NUR ---
Pt is seen outpatient by Dr Ayala for skin graft. Orders received on admit to not remove dressing that was in place [employer]. Wound care team following and changed 07/07, pt refused to have dressing removed for discharge photos. Addendum: 07/07/19 at 1134 by Eileen Owens RN Amended: Links added.
[2019-07-07 11:30] VITALS: BP 120/29
--- NOTE | 2019-07-07 14:21 | NUR ---
Pt discharged to home at 1320 with all belongings, transported by [employer] [facility]. Discharge instructions and medications reviewed, new prescription for pain medication provided to pt with instructions to take to pharmacy to fill. Pt instructed to follow up with Dr Ayala in 1 week, pt states she sees him outpatient every Thursday. IV DC'd, cannula intact. [facility].
== END 2019-07-07 13:22 | disposition home health service (06) | DRG 299 ==
LOC: ER 21:19 → ED HOLD 07-05 01:32 → EDBEDREQ 07-05 01:48 → SUR 3N 07-05 02:33
PROVIDERS: ADMIT Internal Medicine; ATTEND Family Medicine
DX: E11.51 Type 2 diabetes mellitus with diabetic peripheral angiopathy without gangrene (principal); R53.2 Functional quadriplegia; R53.1 Weakness; E11.42 Type 2 diabetes mellitus with diabetic polyneuropathy; D64.9 Anemia, unspecified; E03.9 Hypothyroidism, unspecified; E78.00 Pure hypercholesterolemia, unspecified; I10 Essential (primary) hypertension; Z96.611 Presence of right artificial shoulder joint; Z60.2 Problems related to living alone; M19.90 Unspecified osteoarthritis, unspecified site; I25.10 Atherosclerotic heart disease of native coronary artery without angina pectoris; N28.9 Disorder of kidney and ureter, unspecified; E87.6 Hypokalemia; G89.29 Other chronic pain; M10.9 Gout, unspecified; M79.7 Fibromyalgia; Z79.02 Long term (current) use of antithrombotics/antiplatelets; Z86.73 Personal history of transient ischemic attack (TIA), and cerebral infarction without residual deficits; Z99.3 Dependence on wheelchair; Z79.899 Other long term (current) drug therapy; Z87.891 Personal history of nicotine dependence; Z23 Encounter for immunization; Z88.1 Allergy status to other antibiotic agents; Z90.49 Acquired absence of other specified parts of digestive tract
CPT/HCPCS: 36415; 71045; 80053; 81001; 82948; 83735; 84484; 85025; 87081; 93005; 97110; 97162; 97530; 99285; G0378; J1644; Q2037

== ENCOUNTER 2019-07-11 10:32 | Day surgery (SDC) | payer MEDICARE, BC ==
[~2019-07-11 10:32] MED LIST changes: -ACET500C5 PO; -BENZ1LOZ30 MM; +HYDR-4383 PO
[2019-07-11] MEDS ORDERED: LIDOcaine 2% 5ml jelly ONE (11:54)
[2019-07-11] MEDS ORDERED: CEPH250T PO (16:17)
== END 2019-07-11 13:15 | disposition home or self-care (01) ==
LOC: WOUND CARE 10:32
PROVIDERS: ATTEND Surgery
DX: E11.622 Type 2 diabetes mellitus with other skin ulcer (principal); I83.012 Varicose veins of right lower extremity with ulcer of calf; L97.811 Non-pressure chronic ulcer of other part of right lower leg limited to breakdown of skin; E11.621 Type 2 diabetes mellitus with foot ulcer; I70.245 Atherosclerosis of native arteries of left leg with ulceration of other part of foot; L97.522 Non-pressure chronic ulcer of other part of left foot with fat layer exposed; I70.235 Atherosclerosis of native arteries of right leg with ulceration of other part of foot; L97.511 Non-pressure chronic ulcer of other part of right foot limited to breakdown of skin; I83.022 Varicose veins of left lower extremity with ulcer of calf; L97.821 Non-pressure chronic ulcer of other part of left lower leg limited to breakdown of skin; E11.65 Type 2 diabetes mellitus with hyperglycemia; E11.40 Type 2 diabetes mellitus with diabetic neuropathy, unspecified; I10 Essential (primary) hypertension; E78.5 Hyperlipidemia, unspecified; E03.9 Hypothyroidism, unspecified; M19.90 Unspecified osteoarthritis, unspecified site; G30.9 Alzheimer's disease, unspecified; M10.9 Gout, unspecified; I87.2 Venous insufficiency (chronic) (peripheral); F02.81 Dementia in other diseases classified elsewhere, unspecified severity, with behavioral disturbance; Z86.73 Personal history of transient ischemic attack (TIA), and cerebral infarction without residual deficits; Z90.49 Acquired absence of other specified parts of digestive tract; Z90.710 Acquired absence of both cervix and uterus; Z96.611 Presence of right artificial shoulder joint
CPT/HCPCS: 97597; A6222; A4663; A6021; A6212

== ENCOUNTER 2019-07-11 13:32 | Emergency (ER) | payer MEDICARE, BC ==
[2019-07-11] MEDS ORDERED: aspirin 81mg tab.chew PO ONE (13:55)
[2019-07-11] MEDS ORDERED: normal saline 1000ML IV soln IVB ONE (13:55)
[2019-07-11] MEDS ORDERED: ondansetron/PF 4mg/2ml inj IV ONE (13:55)
[2019-07-11 14:23] LABS: BASOPHILS % (AUTO) 0.6 % (0-1); EOSINOPHILS # (AUTO) 0.2 X10'3 (0-0.9); EOSINOPHILS % (AUTO) 2.3 % (0-6); HEMATOCRIT 34.4 % (35.0-45.0); HEMOGLOBIN 11.3 g/dl (12.0-16.0); LYMPHOCYTES # (AUTO) 1.2 X10'3 (1.1-4.8); LYMPHOCYTES % (AUTO) 17.7 % (21-51); MEAN CORPUSCULAR HEMOGLOBIN 25.7 PG (27.0-31.0); MEAN CORPUSCULAR VOLUME 77.9 FL (78-98); MEAN PLATELET VOLUME 8.4 FL (7.4-10.4); MONOCYTES # (AUTO) 0.6 X10'3 (0-0.9); MONOCYTES % (AUTO) 8.9 % (2-12); NEUTROPHILS # (AUTO) 4.8 X10'3 (1.8-7.7); NEUTROPHILS % (AUTO) 70.5 % (42-75); PLATELET COUNT 283 X10'3 (140-440); RED BLOOD COUNT 4.41 X10'6 (4.20-5.60); RED CELL DISTRIBUTION WIDTH 17.2 % (11.5-14.5); WHITE BLOOD COUNT 6.8 X10'3 (4.5-11.0)
[2019-07-11 14:33] LABS: D-DIMER 1.71 MG/L FEU (0-0.50)
[2019-07-11 14:37] LABS: ALANINE AMINOTRANSFERASE 21 U/L (12-78); ALBUMIN 3.4 G/DL (3.4-5.0); ALBUMIN/GLOBULIN RATIO 0.8 (1.1-1.5); ALKALINE PHOSPHATASE 109 IU/L (46-116); ANION GAP 11 (8-16); ASPARTATE AMINO TRANSFERASE 21 U/L (10-37); BILIRUBIN,TOTAL 0.4 MG/DL (0.1-1.0); BLOOD UREA NITROGEN 24 MG/DL (7-18); CALCIUM 9.7 MG/DL (8.5-10.1); CHLORIDE 97 MMOL/L (99-107); GLUCOSE 191 MG/DL (70-104); POTASSIUM 3.6 MMOL/L (3.5-5.1); SODIUM 136 MMOL/L (135-145); TOTAL CARBON DIOXIDE 28.1 MMOL/L (24-32); TOTAL PROTEIN 7.8 G/DL (6.4-8.2); eGFR 43 ML/MIN
[2019-07-11 14:43] LABS: MAGNESIUM 1.5 MG/DL (1.5-2.4)
[2019-07-11] MEDS ORDERED: iohexol 350MG/ML 100ml bottle IV ONE ×2 (14:52→15:28)
--- NOTE | 2019-07-11 15:00 | NUR ---
pt arrives from on-site wound clinic, with complaint of ongoing generalized weakness and back/shoulder pain. Pt has recent history of multiple [facility] stay.
[2019-07-11 15:12] LABS: CLARITY,URINE TURBID (Clear); COLOR,URINE STRAW (Yellow); GLUCOSE, URINE NEGATIVE (Neg); KETONES,URINE NEGATIVE (Neg); LEUKOCYTE ESTERASE ,URINE LARGE (Neg); NITRITES, URINE POSITIVE (Neg); OCCULT BLOOD,URINE LARGE (Neg); PH,URINE 5.5 (4.8-8.0); PROTEIN,URINE TRACE mg/dl (Neg); UROBILINOGEN,URINE 0.2 E.U/dL (0.2-1.0)
[2019-07-11 15:13] LABS: UA COLLECTION TYPE CLN CATCH MIDSTREAM
[2019-07-11 15:19] LABS: BACTERIA,URINE 4+ /HPF (Neg); MUCUS STRANDS NONE SEEN /LPF (Neg); RBC,URINE 20-50 /HPF (0-2); SQUAMOUS EPITHELIAL CELL,UR FEW /LPF (FEW); WBC,URINE TNTC /HPF (0-4)
[2019-07-11] MEDS ORDERED: CefTRIAXone 2gm/D5W 50ml 50 ML IV ONE (15:20)
--- NOTE | 2019-07-11 15:25 | NUR ---
pt to CT with transporter
[2019-07-11] MEDS ORDERED: MESSAGE TO NURSING PO NR (15:30)
[2019-07-11] MEDS ORDERED: CEPH250T PO (16:17)
[2019-07-11 17:22] VITALS: BP 115/75
== END 2019-07-11 17:23 | disposition home or self-care (01) ==
LOC: ER 13:33
DX: N39.0 Urinary tract infection, site not specified (principal); E86.0 Dehydration; R06.02 Shortness of breath; E78.00 Pure hypercholesterolemia, unspecified; I10 Essential (primary) hypertension; E11.9 Type 2 diabetes mellitus without complications; M19.90 Unspecified osteoarthritis, unspecified site; G89.29 Other chronic pain; M79.7 Fibromyalgia; Z90.49 Acquired absence of other specified parts of digestive tract; Z98.890 Other specified postprocedural states; Z88.1 Allergy status to other antibiotic agents; Z79.82 Long term (current) use of aspirin; Z79.84 Long term (current) use of oral hypoglycemic drugs; Z79.899 Other long term (current) drug therapy
CPT/HCPCS: 36415; 71045; 71275; 80053; 81001; 83735; 83880; 84145; 84484; 85025; 85379; 85610; 87077; 87088; 87186; 93005; 96361; 96365; 96375; 99284; J0696; J2405; J7030; Q9967

== ENCOUNTER 2019-07-19 16:15 | Emergency (ER) | payer MEDICARE, BC ==
[~2019-07-19] VITALS: Ht 152.4 cm; Wt 84.1 kg
[~2019-07-19 16:15] MED LIST changes: +CEPH250T PO
[2019-07-19 17:38] LABS: BASOPHILS # (AUTO) 0.1 X10'3 (0-0.2); BASOPHILS % (AUTO) 1.1 % (0-1); EOSINOPHILS # (AUTO) 0.3 X10'3 (0-0.9); EOSINOPHILS % (AUTO) 4.1 % (0-6); HEMATOCRIT 29.9 % (35.0-45.0); HEMOGLOBIN 9.9 g/dl (12.0-16.0); LYMPHOCYTES # (AUTO) 2.1 X10'3 (1.1-4.8); LYMPHOCYTES % (AUTO) 28.2 % (21-51); MEAN CORPUSCULAR HEMOGLOBIN 25.8 PG (27.0-31.0); MEAN CORPUSCULAR HGB CONC 33.1 g/dL (33.0-36.5); MEAN CORPUSCULAR VOLUME 77.8 FL (78-98); MEAN PLATELET VOLUME 7.9 FL (7.4-10.4); MONOCYTES # (AUTO) 0.5 X10'3 (0-0.9); MONOCYTES % (AUTO) 6.3 % (2-12); NEUTROPHILS # (AUTO) 4.5 X10'3 (1.8-7.7); NEUTROPHILS % (AUTO) 60.3 % (42-75); PLATELET COUNT 237 X10'3 (140-440); RED BLOOD COUNT 3.84 X10'6 (4.20-5.60); RED CELL DISTRIBUTION WIDTH 16.9 % (11.5-14.5); WHITE BLOOD COUNT 7.5 X10'3 (4.5-11.0)
[2019-07-19 17:54] LABS: ALANINE AMINOTRANSFERASE 21 U/L (12-78); ALBUMIN 3.1 G/DL (3.4-5.0); ALBUMIN/GLOBULIN RATIO 0.8 (1.1-1.5); ALKALINE PHOSPHATASE 88 IU/L (46-116); ANION GAP 9 (8-16); ASPARTATE AMINO TRANSFERASE 18 U/L (10-37); BILIRUBIN,TOTAL 0.2 MG/DL (0.1-1.0); BLOOD UREA NITROGEN 26 MG/DL (7-18); BUN/CREATININE RATIO 24.1 (6.6-38.0); CALCIUM 8.9 MG/DL (8.5-10.1); CHLORIDE 102 MMOL/L (99-107); CREATININE 1.08 MG/DL (0.40-0.90); GLUCOSE 226 MG/DL (70-104); POTASSIUM 3.4 MMOL/L (3.5-5.1); SODIUM 141 MMOL/L (135-145); TOTAL PROTEIN 6.9 G/DL (6.4-8.2); eGFR 48 ML/MIN
[2019-07-19 18:03] LABS: MAGNESIUM 1.5 MG/DL (1.5-2.4); PHOSPHORUS 3.2 MG/DL (2.3-4.5)
[2019-07-19] MEDS ORDERED: potassium Cl 20 mEq SR tablet PO ONE (18:10)
--- NOTE | 2019-07-19 18:53 | NUR ---
Patient resting comfortably in bed. She requests phone to contact relative to get a check to pay for [employer]. Patient contacted family member who states she can be at the house to unlock and get her wheelchair. [employer] contacted but it is uncertain at this time if they have any drivers given the weather. Patient updated on POC.
--- NOTE | 2019-07-19 18:59 | NUR ---
[employer] confirms they can take the patient home in 45 minutes. Spoke to Carlton, family friend, who states that he can meet the patient at her home to let her in and stay there until her caregiver arrives.
--- NOTE | 2019-07-19 19:00 | NUR ---
Carlton [phone]
[2019-07-19 19:38] VITALS: BP 121/66
== END 2019-07-19 19:39 | disposition home or self-care (01) ==
LOC: ER 16:16
DX: R42 Dizziness and giddiness (principal); R11.10 Vomiting, unspecified; E78.00 Pure hypercholesterolemia, unspecified; I10 Essential (primary) hypertension; E11.9 Type 2 diabetes mellitus without complications; M19.90 Unspecified osteoarthritis, unspecified site; M79.7 Fibromyalgia; Z86.73 Personal history of transient ischemic attack (TIA), and cerebral infarction without residual deficits; Z90.49 Acquired absence of other specified parts of digestive tract; Z98.890 Other specified postprocedural states; Z60.2 Problems related to living alone; Z88.1 Allergy status to other antibiotic agents; Z79.82 Long term (current) use of aspirin; Z79.899 Other long term (current) drug therapy
CPT/HCPCS: 36415; 80053; 83735; 84100; 84443; 84484; 85025; 93005; 99284

== ENCOUNTER 2019-07-27 12:42 | Inpatient (IN) | payer MEDICARE, BC ==
[~2019-07-27] VITALS: Ht 152.4 cm; Wt 81.8 kg
[~2019-07-27 12:42] MED LIST changes: -CEPH250T PO
[2019-07-27] MEDS ORDERED: normal saline 1000ML IV soln IV ONE (12:50)
[2019-07-27] MEDS ORDERED: CefTRIAXone 2gm/D5W 50ml 50 ML IV ONE (12:50)
[2019-07-27 13:28] LABS: BASOPHILS # (AUTO) 0.1 X10'3 (0-0.2); BASOPHILS % (AUTO) 0.8 % (0-1); EOSINOPHILS # (AUTO) 0.1 X10'3 (0-0.9); EOSINOPHILS % (AUTO) 1.2 % (0-6); HEMATOCRIT 35.4 % (35.0-45.0); HEMOGLOBIN 11.7 g/dl (12.0-16.0); LYMPHOCYTES # (AUTO) 1.6 X10'3 (1.1-4.8); MEAN CORPUSCULAR HEMOGLOBIN 25.6 PG (27.0-31.0); MEAN CORPUSCULAR HGB CONC 32.9 g/dL (33.0-36.5); MEAN CORPUSCULAR VOLUME 77.9 FL (78-98); MEAN PLATELET VOLUME 8.8 FL (7.4-10.4); MONOCYTES # (AUTO) 0.8 X10'3 (0-0.9); MONOCYTES % (AUTO) 7.7 % (2-12); NEUTROPHILS # (AUTO) 7.9 X10'3 (1.8-7.7); NEUTROPHILS % (AUTO) 75.3 % (42-75); PLATELET COUNT 294 X10'3 (140-440); RED BLOOD COUNT 4.55 X10'6 (4.20-5.60); RED CELL DISTRIBUTION WIDTH 17.9 % (11.5-14.5); WHITE BLOOD COUNT 10.5 X10'3 (4.5-11.0)
[2019-07-27 13:52] LABS: ALANINE AMINOTRANSFERASE 20 U/L (12-78); ALBUMIN 3.1 G/DL (3.4-5.0); ALBUMIN/GLOBULIN RATIO 0.7 (1.1-1.5); ALKALINE PHOSPHATASE 124 IU/L (46-116); ANION GAP 11 (8-16); ASPARTATE AMINO TRANSFERASE 19 U/L (10-37); BILIRUBIN,TOTAL 0.5 MG/DL (0.1-1.0); BLOOD UREA NITROGEN 20 MG/DL (7-18); BUN/CREATININE RATIO 17.9 (6.6-38.0); CALCIUM 9.3 MG/DL (8.5-10.1); CHLORIDE 98 MMOL/L (99-107); CREATININE 1.12 MG/DL (0.40-0.90); GLUCOSE 250 MG/DL (70-104); SODIUM 136 MMOL/L (135-145); TOTAL CARBON DIOXIDE 27.3 MMOL/L (24-32); TOTAL PROTEIN 7.8 G/DL (6.4-8.2); eGFR 46 ML/MIN
[2019-07-27] MEDS ORDERED: morphine 4 MG/ML inj SYRINge IV ONE (14:50)
[2019-07-27] MEDS ORDERED: ondansetron/PF 4mg/2ml inj IV ONE (14:50)
[2019-07-27 15:00] LABS: CLARITY,URINE CLEAR (Clear); COLOR,URINE YELLOW (Yellow); GLUCOSE, URINE NEGATIVE (Neg); KETONES,URINE NEGATIVE (Neg); LEUKOCYTE ESTERASE ,URINE NEGATIVE (Neg); NITRITES, URINE NEGATIVE (Neg); OCCULT BLOOD,URINE NEGATIVE (Neg); PH,URINE 5.5 (4.8-8.0); PROTEIN,URINE NEGATIVE (Neg); UROBILINOGEN,URINE 0.2 E.U/dL (0.2-1.0)
[2019-07-27 15:02] LABS: UA COLLECTION TYPE STRAIGHT CATH
--- NOTE | 2019-07-27 15:14 | NUR ---
ANNETTE ELKINS- #[phone] FRIEND AT BEDSIDE.
[2019-07-27] MEDS ORDERED: mag hydrox/Alum hydrox/simeth 30ml oral suspension PO PRN (16:05)
[2019-07-27] MEDS ORDERED: morphine 2 MG/ML inj. syringe IV PRN (16:05)
[2019-07-27] MEDS ORDERED: magnesium hydroxide 30ml (MOM) UD suspension PO PRN (16:05)
[2019-07-27] MEDS ORDERED: ondansetron/PF 4mg/2ml inj IV PRN (16:05)
[2019-07-27] MEDS ORDERED: HYDROcodone/acetaminophen 10/325mg tab PO PRN (16:05)
[2019-07-27] MEDS ORDERED: acetaminophen 325mg tablet PO PRN (16:05)
[2019-07-27] MEDS ORDERED: METF-436 PO (16:11)
--- NOTE | 2019-07-27 16:19 | NUR ---
Asked to consult on this pt for possible placement. Pt came in w/ intractable neck pain. Work up was negative for source of pain, however while here a previous urine cx from approx a week ago came back from the [facility] + for salmonella. Pt rec'd 1 dose of IV Rocephin. Pt's friend was at the bedside and tells me that pt's caregivers were all dismissed for today secondary to her neck pain. I attempted to explain that is a social issue and not admitting criteria. He went on to tell me that the pain has been so severe that her H/H nurse is also recommending admit. I spoke w/ Dr. Jarquin who says he will admit for overnight to allow pt to receive further IV abx for the salmonella. I spoke w/ pt and her friend again and informed them that MD would admit for overnight only. This will allow the pt to get more abx and also work w/ PT to see about her neck pain. I stressed to them an additional 3 times that she would most likely be dc'd home tomorrow so he has time to bring the caregivers back. Pt will transport home via [employer] or [employer] as she usually does. Will continue to monitor.
--- NOTE | 2019-07-27 17:43 | NUR ---
Patient in room ED 9. I have received report from Angelita in ED and had the opportunity to ask questions and assume patient care.
[2019-07-27] MEDS ORDERED: nitroGLYCERIN 0.4mg SUBLingual tab SL PRN (17:50)
--- NOTE | 2019-07-27 18:27 | NUR ---
Problems reprioritized. Patient report given, questions answered & plan of care reviewed with
--- NOTE | 2019-07-27 18:43 | NUR ---
Patient in room ORTHO 4010. I have received report from INEZ Gutierrez and had the opportunity to ask questions and assume patient care. Addendum: 07/27/19 at 1843 by Jolanta Small RN Amended: Links added.
[2019-07-27] MEDS: heparin, porcine 5000 units/ml vial SQ SCH (19:43)
[2019-07-27] MEDS: normal saline 1000ml 1,000 ML IV SCH (19:43)
[2019-07-27] MEDS: carvedilol 6.25mg tablet PO SCH (19:43)
[2019-07-27 20:35] LABS: HEMOGLOBIN A1C 8.1 % (4.5-6.2)
[2019-07-27] MEDS ORDERED: dextrose 50%-water 50ml dispensing syringe IV PRN ×2 (20:45)
[2019-07-27] MEDS ORDERED: dextrose ORAL solution 15 GM/59 ML bottle PO PRN ×2 (20:45)
[2019-07-27] MEDS ORDERED: insulin regular, human vial - multi-dose SQ SCH (20:45)
[2019-07-27] MEDS ORDERED: glucagon, human recombinant 1mg kit SUBCUT PRN (20:45)
[2019-07-27] MEDS ORDERED: MESSAGE TO PHARMACY PO ONE (20:45)
[2019-07-27] MEDS: pregabalin 75mg capsule PO SCH (21:12)
[2019-07-27] MEDS: insulin Lispro (HumaLOG) vial - multi-dose SQ SCH (21:19)
[2019-07-27] MEDS: insulin glargine (Lantus) pen - multi-dose SQ SCH (21:20)
[2019-07-27] MEDS: HYDROcodone/acetaminophen 5mg/325mg tablet PO PRN (21:31)
[2019-07-27 22:00] VITALS: BP 116/34
[2019-07-28] MEDS: normal saline 1000ml 1,000 ML IV SCH ×3 (02:04→17:32)
[2019-07-28 06:00] VITALS: BP 156/59
--- NOTE | 2019-07-28 06:33 | NUR ---
Problems reprioritized. Patient report given, questions answered & plan of care reviewed with Zamzam/INEZ Qiu's.
--- NOTE | 2019-07-28 06:47 | NUR ---
Patient in room ORTHO 4010A. I have received report from RICHARD WILEY and had the opportunity to ask questions and assume patient care.
[2019-07-28 07:02] LABS: BASOPHILS # (AUTO) 0.1 X10'3 (0-0.2); BASOPHILS % (AUTO) 0.9 % (0-1); EOSINOPHILS # (AUTO) 0.2 X10'3 (0-0.9); EOSINOPHILS % (AUTO) 3.5 % (0-6); HEMATOCRIT 28.5 % (35.0-45.0); HEMOGLOBIN 9.4 g/dl (12.0-16.0); LYMPHOCYTES # (AUTO) 1.4 X10'3 (1.1-4.8); LYMPHOCYTES % (AUTO) 21.8 % (21-51); MEAN CORPUSCULAR HEMOGLOBIN 25.8 PG (27.0-31.0); MEAN CORPUSCULAR HGB CONC 32.9 g/dL (33.0-36.5); MEAN CORPUSCULAR VOLUME 78.4 FL (78-98); MEAN PLATELET VOLUME 8.6 FL (7.4-10.4); MONOCYTES # (AUTO) 0.7 X10'3 (0-0.9); MONOCYTES % (AUTO) 10.7 % (2-12); NEUTROPHILS # (AUTO) 4.1 X10'3 (1.8-7.7); NEUTROPHILS % (AUTO) 63.1 % (42-75); PLATELET COUNT 223 X10'3 (140-440); RED BLOOD COUNT 3.63 X10'6 (4.20-5.60); RED CELL DISTRIBUTION WIDTH 18.2 % (11.5-14.5); WHITE BLOOD COUNT 6.5 X10'3 (4.5-11.0)
[2019-07-28 07:16] LABS: ALBUMIN 2.2 G/DL (3.4-5.0); ANION GAP 9 (8-16); BLOOD UREA NITROGEN 21 MG/DL (7-18); BUN/CREATININE RATIO 20.6 (6.6-38.0); CALCIUM 7.6 MG/DL (8.5-10.1); CHLORIDE 104 MMOL/L (99-107); CREATININE 1.02 MG/DL (0.40-0.90); GLUCOSE 197 MG/DL (70-104); POTASSIUM 3.2 MMOL/L (3.5-5.1); SODIUM 139 MMOL/L (135-145); TOTAL CARBON DIOXIDE 26.1 MMOL/L (24-32); eGFR 52 ML/MIN
[2019-07-28] MEDS: CefTRIAXone/D5W-Rocephin 1gm 50 ML IV SCH (07:43)
[2019-07-28] MEDS: levoTHYROXINE 25mcg tablet PO SCH (07:43)
[2019-07-28] MEDS: clopidogrel 75mg tablet PO SCH (07:45)
[2019-07-28] MEDS: furosemide 20MG tablet PO SCH (07:45)
[2019-07-28] MEDS: carvedilol 6.25mg tablet PO SCH ×2 (07:45→20:36)
[2019-07-28] MEDS: aspirin 81mg tablet.DR PO SCH (07:45)
[2019-07-28] MEDS: heparin, porcine 5000 units/ml vial SQ SCH ×2 (07:46→20:37)
[2019-07-28] MEDS: insulin Lispro (HumaLOG) vial - multi-dose SQ SCH ×4 (09:42→20:48)
[2019-07-28 10:00] VITALS: BP 99/42
[2019-07-28] MEDS ORDERED: potassium Cl 20 mEq SR tablet PO PRN (11:55)
[2019-07-28] MEDS ORDERED: magnesium Cl slow-release 64mg tablet PO PRN (11:55)
[2019-07-28] MEDS ORDERED: potassium CL 10mEq/100ml bag 100 ML IV PRN (11:55)
[2019-07-28] MEDS ORDERED: magnesium 4gm in 100ml NS 100 ML IV PRN (11:55)
[2019-07-28 12:27] LABS: MAGNESIUM 1.6 MG/DL (1.5-2.4)
[2019-07-28] MEDS: potassium Cl 20 mEq SR tablet PO PRN ×3 (12:37→21:02)
--- NOTE | 2019-07-28 12:37 | NUR ---
DM Consult: A1C 8.1. Pt unable to wake at bedside snoring during RD visit. Written DM ed w/ RD and CDE course contact information left at bedside. Addendum: 07/28/19 at [address] Amended: Links added.
[2019-07-28] MEDS: HYDROcodone/acetaminophen 5mg/325mg tablet PO PRN ×2 (12:41→17:31)
[2019-07-28 18:00] VITALS: BP 122/51
--- NOTE | 2019-07-28 18:17 | NUR ---
Problems reprioritized. Patient report given, questions answered & plan of care reviewed with COURTNEY RN.
--- NOTE | 2019-07-28 18:25 | NUR ---
Received report from Zamzam WILEY. assumed care of patient.
[2019-07-28] MEDS: lactobacillus rhamnosus 10,000 MMU CELLS/CAPSULE PO SCH (20:36)
[2019-07-28] MEDS: pregabalin 75mg capsule PO SCH (20:38)
[2019-07-28] MEDS: insulin glargine (Lantus) pen - multi-dose SQ SCH (20:47)
[2019-07-28 22:00] VITALS: BP 135/51
[2019-07-29] MEDS: normal saline 1000ml 1,000 ML IV SCH ×2 (03:19→14:51)
--- NOTE | 2019-07-29 04:30 | NUR ---
Offered patient milk of magnesia--last documented bowel movement was 07/25/2019. pt refused stating that she only goes once a week.
[2019-07-29] MEDS: HYDROcodone/acetaminophen 5mg/325mg tablet PO PRN ×2 (05:09→20:51)
[2019-07-29 06:00] VITALS: BP 131/50
--- NOTE | 2019-07-29 06:00 | NUR ---
Patient in room ORTHO 4010. I have received report from Lashon and had the opportunity to ask questions and assume patient care.
--- NOTE | 2019-07-29 06:00 | NUR ---
Gave report to Ellie WILEY.
[2019-07-29 07:21] LABS: BASOPHILS # (AUTO) 0.1 X10'3 (0-0.2); BASOPHILS % (AUTO) 1.2 % (0-1); EOSINOPHILS # (AUTO) 0.3 X10'3 (0-0.9); EOSINOPHILS % (AUTO) 4.5 % (0-6); HEMATOCRIT 27.7 % (35.0-45.0); HEMOGLOBIN 9.3 g/dl (12.0-16.0); LYMPHOCYTES # (AUTO) 2.1 X10'3 (1.1-4.8); LYMPHOCYTES % (AUTO) 30.7 % (21-51); MEAN CORPUSCULAR HEMOGLOBIN 25.7 PG (27.0-31.0); MEAN CORPUSCULAR HGB CONC 33.4 g/dL (33.0-36.5); MEAN PLATELET VOLUME 8.7 FL (7.4-10.4); MONOCYTES # (AUTO) 0.5 X10'3 (0-0.9); MONOCYTES % (AUTO) 7.7 % (2-12); NEUTROPHILS # (AUTO) 3.8 X10'3 (1.8-7.7); NEUTROPHILS % (AUTO) 55.9 % (42-75); PLATELET COUNT 286 X10'3 (140-440); WHITE BLOOD COUNT 6.7 X10'3 (4.5-11.0)
[2019-07-29] MEDS: aspirin 81mg tablet.DR PO SCH (07:24)
[2019-07-29] MEDS: clopidogrel 75mg tablet PO SCH (07:24)
[2019-07-29] MEDS: carvedilol 6.25mg tablet PO SCH ×2 (07:24→20:50)
[2019-07-29] MEDS: lactobacillus rhamnosus 10,000 MMU CELLS/CAPSULE PO SCH ×2 (07:24→20:50)
[2019-07-29] MEDS: furosemide 20MG tablet PO SCH (07:24)
[2019-07-29] MEDS: levoTHYROXINE 25mcg tablet PO SCH (07:24)
[2019-07-29] MEDS: CefTRIAXone/D5W-Rocephin 1gm 50 ML IV SCH (07:26)
[2019-07-29] MEDS: heparin, porcine 5000 units/ml vial SQ SCH ×2 (07:26→20:50)
[2019-07-29 07:33] LABS: ALBUMIN 2.4 G/DL (3.4-5.0); ANION GAP 9 (8-16); BLOOD UREA NITROGEN 25 MG/DL (7-18); BUN/CREATININE RATIO 24.3 (6.6-38.0); CALCIUM 8.3 MG/DL (8.5-10.1); CHLORIDE 104 MMOL/L (99-107); CREATININE 1.03 MG/DL (0.40-0.90); GLUCOSE 173 MG/DL (70-104); MAGNESIUM 1.7 MG/DL (1.5-2.4); POTASSIUM 4.6 MMOL/L (3.5-5.1); SODIUM 136 MMOL/L (135-145); TOTAL CARBON DIOXIDE 22.9 MMOL/L (24-32); eGFR 51 ML/MIN
[2019-07-29] MEDS: insulin Lispro (HumaLOG) vial - multi-dose SQ SCH ×3 (08:41→18:42)
[2019-07-29 10:00] VITALS: BP 125/66
--- NOTE | 2019-07-29 11:47 | NUR ---
Discharge orders in, pending pt's caregiver/friend to arrive to advise/coordinate discharge home
[2019-07-29 18:00] VITALS: BP 138/71
--- NOTE | 2019-07-29 18:10 | NUR ---
Received report from Ellie WILEY. assumed care of patient.
--- NOTE | 2019-07-29 18:12 | NUR ---
Problems reprioritized. Patient report given, questions answered & plan of care reviewed with Lashon.
[2019-07-29] MEDS: pregabalin 75mg capsule PO SCH (20:50)
[2019-07-29] MEDS: insulin glargine (Lantus) pen - multi-dose SQ SCH (20:53)
--- NOTE | 2019-07-29 21:12 | NUR ---
certified hyperbaric technologist called me with two runs of VT; 6beat and 5 beat VT I notified pt's nurse Lashon of call.
--- NOTE | 2019-07-29 21:19 | NUR ---
Charissa WILEY informed me of patient in 4010A with two runs of VT; 6beat and 5 beat VT. Check in on patient. pt is currently stable and denies any chest pain. took patient's vital signs heart rate was 77 bpm, oxygenation was 95% and blood pressure was 166/64 taken on the left forearm. Patient refused to get blood pressure taken on her upper arm. Informed charge nurse. will continue to monitor patient.
[2019-07-29 22:00] VITALS: BP 164/66
[2019-07-30] MEDS: normal saline 1000ml 1,000 ML IV SCH (03:10)
[2019-07-30 06:00] VITALS: BP 146/51
--- NOTE | 2019-07-30 06:10 | NUR ---
Gave report to Ellie WILEY.
--- NOTE | 2019-07-30 06:15 | NUR ---
Patient in room ORTHO 4010. I have received report from Lashon and had the opportunity to ask questions and assume patient care.
[2019-07-30 07:10] LABS: BASOPHILS # (AUTO) 0.1 X10'3 (0-0.2); EOSINOPHILS # (AUTO) 0.3 X10'3 (0-0.9); HEMATOCRIT 26.2 % (35.0-45.0); HEMOGLOBIN 8.9 g/dl (12.0-16.0); LYMPHOCYTES % (AUTO) 33.4 % (21-51); MEAN CORPUSCULAR HEMOGLOBIN 26.1 PG (27.0-31.0); MEAN CORPUSCULAR HGB CONC 34.1 g/dL (33.0-36.5); MEAN CORPUSCULAR VOLUME 76.7 FL (78-98); MONOCYTES # (AUTO) 0.5 X10'3 (0-0.9); MONOCYTES % (AUTO) 8.7 % (2-12); NEUTROPHILS # (AUTO) 3.1 X10'3 (1.8-7.7); NEUTROPHILS % (AUTO) 51.9 % (42-75); PLATELET COUNT 280 X10'3 (140-440); RED BLOOD COUNT 3.41 X10'6 (4.20-5.60); WHITE BLOOD COUNT 5.9 X10'3 (4.5-11.0)
[2019-07-30 07:14] LABS: ALBUMIN 2.2 G/DL (3.4-5.0); ANION GAP 7 (8-16); BLOOD UREA NITROGEN 25 MG/DL (7-18); BUN/CREATININE RATIO 25.5 (6.6-38.0); CALCIUM 8.3 MG/DL (8.5-10.1); CHLORIDE 104 MMOL/L (99-107); CREATININE 0.98 MG/DL (0.40-0.90); GLUCOSE 161 MG/DL (70-104); MAGNESIUM 1.7 MG/DL (1.5-2.4); POTASSIUM 4.2 MMOL/L (3.5-5.1); SODIUM 135 MMOL/L (135-145); TOTAL CARBON DIOXIDE 24.1 MMOL/L (24-32); eGFR 54 ML/MIN
[2019-07-30] MEDS: CefTRIAXone/D5W-Rocephin 1gm 50 ML IV SCH (08:32)
[2019-07-30] MEDS: levoTHYROXINE 25mcg tablet PO SCH (08:32)
[2019-07-30] MEDS: lactobacillus rhamnosus 10,000 MMU CELLS/CAPSULE PO SCH (08:35)
[2019-07-30] MEDS: aspirin 81mg tablet.DR PO SCH (08:35)
[2019-07-30] MEDS: clopidogrel 75mg tablet PO SCH (08:35)
[2019-07-30] MEDS: carvedilol 6.25mg tablet PO SCH (08:35)
[2019-07-30] MEDS: furosemide 20MG tablet PO SCH (08:35)
[2019-07-30] MEDS: HYDROcodone/acetaminophen 5mg/325mg tablet PO PRN (08:35)
[2019-07-30] MEDS: heparin, porcine 5000 units/ml vial SQ SCH (08:36)
[2019-07-30] MEDS: insulin Lispro (HumaLOG) vial - multi-dose SQ SCH (08:48)
[2019-07-30 10:00] VITALS: BP 113/43
--- NOTE | 2019-07-30 10:40 | NUR ---
Discharge instructions were reviewed with pt. Pt is alert, oriented and in good spirits. All of pt's belongings were returned to pt. Pt was transported by [employer], to her home.
== END 2019-07-30 10:15 | disposition home health service (06) | DRG 690 ==
LOC: ER 12:43 → ED HOLD 16:04 → ORTHO 4S 18:00
PROVIDERS: ADMIT Family Medicine; ATTEND Family Medicine
DX: N39.0 Urinary tract infection, site not specified (principal); E03.9 Hypothyroidism, unspecified; E78.00 Pure hypercholesterolemia, unspecified; G89.4 Chronic pain syndrome; K21.9 Gastro-esophageal reflux disease without esophagitis; M10.9 Gout, unspecified; M19.90 Unspecified osteoarthritis, unspecified site; E87.6 Hypokalemia; E11.9 Type 2 diabetes mellitus without complications; M54.2 Cervicalgia; M54.9 Dorsalgia, unspecified; I10 Essential (primary) hypertension; I25.10 Atherosclerotic heart disease of native coronary artery without angina pectoris; M79.7 Fibromyalgia; Z86.73 Personal history of transient ischemic attack (TIA), and cerebral infarction without residual deficits; Z99.3 Dependence on wheelchair; Z90.49 Acquired absence of other specified parts of digestive tract; Z90.710 Acquired absence of both cervix and uterus; Z88.1 Allergy status to other antibiotic agents; Z79.82 Long term (current) use of aspirin
CPT/HCPCS: 36415; 70450; 71045; 72125; 74176; 80048; 80053; 81003; 82948; 83036; 83605; 83735; 84145; 85025; 85610; 87040; 87081; 93005; 96365; 96375; 97110; 97163; 97530; 99285; G0378; J0696; J1644; J1815; J2270; J2405; J7030

== ENCOUNTER 2019-08-08 10:55 | Outpatient (CLI) | payer MEDICARE, BC ==
[~2019-08-08 10:55] MED LIST changes: -HYDR-4383 PO; +METF-436 PO; -METF-950 PO
[2019-08-08] MEDS ORDERED: LIDOcaine 2% 5ml jelly ONE (12:16)
[2019-08-08] MEDS ORDERED: mupirocin 2% ointment 22GM ONE (12:45)
== END 2019-08-08 13:25 | disposition home or self-care (01) ==
LOC: WOUND CARE 10:55 → EDSTATUS 11:00 → WOUND CARE 13:25
PROVIDERS: ATTEND Surgery
DX: S90.211A Contusion of right great toe with damage to nail, initial encounter (principal); E11.622 Type 2 diabetes mellitus with other skin ulcer; I83.012 Varicose veins of right lower extremity with ulcer of calf; L97.811 Non-pressure chronic ulcer of other part of right lower leg limited to breakdown of skin; E11.621 Type 2 diabetes mellitus with foot ulcer; I70.245 Atherosclerosis of native arteries of left leg with ulceration of other part of foot; L97.522 Non-pressure chronic ulcer of other part of left foot with fat layer exposed; I70.235 Atherosclerosis of native arteries of right leg with ulceration of other part of foot; L97.511 Non-pressure chronic ulcer of other part of right foot limited to breakdown of skin; I83.022 Varicose veins of left lower extremity with ulcer of calf; L97.821 Non-pressure chronic ulcer of other part of left lower leg limited to breakdown of skin; E11.65 Type 2 diabetes mellitus with hyperglycemia; E11.40 Type 2 diabetes mellitus with diabetic neuropathy, unspecified; I10 Essential (primary) hypertension; E78.5 Hyperlipidemia, unspecified; E03.9 Hypothyroidism, unspecified; M19.90 Unspecified osteoarthritis, unspecified site; G30.9 Alzheimer's disease, unspecified; M10.9 Gout, unspecified; I87.2 Venous insufficiency (chronic) (peripheral); F02.81 Dementia in other diseases classified elsewhere, unspecified severity, with behavioral disturbance; Z86.73 Personal history of transient ischemic attack (TIA), and cerebral infarction without residual deficits; Z90.49 Acquired absence of other specified parts of digestive tract; Z90.710 Acquired absence of both cervix and uterus; Z96.611 Presence of right artificial shoulder joint; X58.XXXA Exposure to other specified factors, initial encounter; Y93.89 Activity, other specified; Y92.89 Other specified places as the place of occurrence of the external cause; Y99.8 Other external cause status
CPT/HCPCS: A4663; G0463

== ENCOUNTER 2019-08-12 10:01 | Emergency (ER) | payer MEDICARE, BC ==
[~2019-08-12] VITALS: Ht 152.4 cm; Wt 84.0 kg
--- NOTE | 2019-08-12 10:32 | NUR ---
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
[2019-08-12 11:04] LABS: CLARITY,URINE SLIGHTLY CLOUDY (Clear); COLOR,URINE YELLOW (Yellow); GLUCOSE, URINE NEGATIVE (Neg); KETONES,URINE 15 mg/dl (Neg); LEUKOCYTE ESTERASE ,URINE NEGATIVE (Neg); NITRITES, URINE NEGATIVE (Neg); OCCULT BLOOD,URINE NEGATIVE (Neg); PROTEIN,URINE TRACE mg/dl (Neg); UA COLLECTION TYPE STRAIGHT CATH; UROBILINOGEN,URINE 0.2 E.U/dL (0.2-1.0)
[2019-08-12 11:10] LABS: MUCUS STRANDS MODERATE /LPF (Neg)
[2019-08-12 11:12] LABS: HYALINE CASTS 0-3 /LPF (NEGATIVE); SQUAMOUS EPITHELIAL CELL,UR FEW /LPF (FEW)
[2019-08-12 11:13] LABS: BACTERIA,URINE FEW /HPF (Neg)
[2019-08-12 11:14] LABS: RBC,URINE 0-2 /HPF (0-2); WBC,URINE 0-4 /HPF (0-4); YEAST MANY /HPF (NEGATIVE)
[2019-08-12] MEDS ORDERED: bisacodyl 10mg suppository rectal RC ONE (11:40)
[2019-08-12 11:42] LABS: BASOPHILS # (AUTO) 0.1 X10'3 (0-0.2); BASOPHILS % (AUTO) 0.8 % (0-1); EOSINOPHILS # (AUTO) 0.1 X10'3 (0-0.9); EOSINOPHILS % (AUTO) 1.2 % (0-6); HEMATOCRIT 33.7 % (35.0-45.0); HEMOGLOBIN 11.1 g/dl (12.0-16.0); LYMPHOCYTES # (AUTO) 1.3 X10'3 (1.1-4.8); LYMPHOCYTES % (AUTO) 14.2 % (21-51); MEAN CORPUSCULAR HEMOGLOBIN 24.8 PG (27.0-31.0); MEAN CORPUSCULAR HGB CONC 32.8 g/dL (33.0-36.5); MEAN CORPUSCULAR VOLUME 75.6 FL (78-98); MEAN PLATELET VOLUME 7.7 FL (7.4-10.4); MONOCYTES # (AUTO) 0.5 X10'3 (0-0.9); MONOCYTES % (AUTO) 6.2 % (2-12); NEUTROPHILS # (AUTO) 6.9 X10'3 (1.8-7.7); NEUTROPHILS % (AUTO) 77.6 % (42-75); PLATELET COUNT 389 X10'3 (140-440); RED BLOOD COUNT 4.45 X10'6 (4.20-5.60); RED CELL DISTRIBUTION WIDTH 18.3 % (11.5-14.5); WHITE BLOOD COUNT 8.9 X10'3 (4.5-11.0)
[2019-08-12 11:55] LABS: ALANINE AMINOTRANSFERASE 19 U/L (12-78); ALBUMIN 3.2 G/DL (3.4-5.0); ALBUMIN/GLOBULIN RATIO 0.7 (1.1-1.5); ALKALINE PHOSPHATASE 119 IU/L (46-116); ANION GAP 6 (8-16); ASPARTATE AMINO TRANSFERASE 17 U/L (10-37); BILIRUBIN,TOTAL 0.4 MG/DL (0.1-1.0); BLOOD UREA NITROGEN 17 MG/DL (7-18); BUN/CREATININE RATIO 18.5 (6.6-38.0); CALCIUM 9.4 MG/DL (8.5-10.1); CHLORIDE 101 MMOL/L (99-107); CREATININE 0.92 MG/DL (0.40-0.90); GLUCOSE 238 MG/DL (70-104); MAGNESIUM 1.6 MG/DL (1.5-2.4); POTASSIUM 3.7 MMOL/L (3.5-5.1); SODIUM 137 MMOL/L (135-145); TOTAL CARBON DIOXIDE 30.5 MMOL/L (24-32); TOTAL PROTEIN 7.6 G/DL (6.4-8.2); eGFR 58 ML/MIN
--- NOTE | 2019-08-12 12:19 | NUR ---
ASSISSTED DR. BATES WITH FECAL DISIMPACTION WITH GOOD RESULTS.
[2019-08-12 13:39] VITALS: BP 179/66
== END 2019-08-12 14:01 | disposition home or self-care (01) ==
LOC: ER 10:02
DX: R55 Syncope and collapse (principal); K59.00 Constipation, unspecified; E78.00 Pure hypercholesterolemia, unspecified; I10 Essential (primary) hypertension; E11.9 Type 2 diabetes mellitus without complications; M19.90 Unspecified osteoarthritis, unspecified site; G89.29 Other chronic pain; M79.7 Fibromyalgia; M10.9 Gout, unspecified; Z86.73 Personal history of transient ischemic attack (TIA), and cerebral infarction without residual deficits; Z90.49 Acquired absence of other specified parts of digestive tract; Z98.890 Other specified postprocedural states; Z88.1 Allergy status to other antibiotic agents; Z88.6 Allergy status to analgesic agent; Z79.82 Long term (current) use of aspirin; Z79.899 Other long term (current) drug therapy; Z79.01 Long term (current) use of anticoagulants
CPT/HCPCS: 36415; 80053; 81001; 83735; 84484; 85025; 85610; 93005; 99284

== ENCOUNTER 2019-08-29 16:56 | Emergency (ER) | payer MEDICARE, BC ==
[~2019-08-29] VITALS: Ht 152.4 cm; Wt 65.0 kg
[2019-08-29] MEDS ORDERED: bisacodyl 10mg suppository rectal RC ONE (17:55)
[2019-08-29] MEDS ORDERED: normal saline 1000ML IV soln IVB ONE (17:55)
[2019-08-29] MEDS ORDERED: BISA10SU60 RC (18:09)
[2019-08-29 19:21] VITALS: BP 144/64
== END 2019-08-29 19:22 | disposition home or self-care (01) ==
LOC: ER 16:56
DX: K56.41 Fecal impaction (principal); E78.00 Pure hypercholesterolemia, unspecified; I10 Essential (primary) hypertension; E11.9 Type 2 diabetes mellitus without complications; G89.29 Other chronic pain; M79.7 Fibromyalgia; M10.9 Gout, unspecified; Z86.73 Personal history of transient ischemic attack (TIA), and cerebral infarction without residual deficits; Z90.49 Acquired absence of other specified parts of digestive tract; Z98.890 Other specified postprocedural states; Z88.1 Allergy status to other antibiotic agents; Z79.82 Long term (current) use of aspirin; Z79.899 Other long term (current) drug therapy
CPT/HCPCS: 74018; 99284

== ENCOUNTER 2019-09-24 16:40 | Emergency (ER) | payer MEDICARE, BC ==
[~2019-09-24] VITALS: Ht 152.4 cm; Wt 95.5 kg
[~2019-09-24 16:40] MED LIST changes: +BISA10SU60 RC
[2019-09-24] MEDS ORDERED: NYSPWD TP (17:30)
[2019-09-24] MEDS ORDERED: CEPH250T PO (17:30)
[2019-09-24 18:26] VITALS: BP 108/53
== END 2019-09-24 18:30 | disposition home or self-care (01) ==
LOC: ER 16:40
DX: L03.312 Cellulitis of back [any part except buttock and flank] (principal); L30.4 Erythema intertrigo; E78.00 Pure hypercholesterolemia, unspecified; E11.9 Type 2 diabetes mellitus without complications; M19.90 Unspecified osteoarthritis, unspecified site; G89.29 Other chronic pain; M79.7 Fibromyalgia; M10.9 Gout, unspecified; I10 Essential (primary) hypertension; Z86.73 Personal history of transient ischemic attack (TIA), and cerebral infarction without residual deficits; Z90.49 Acquired absence of other specified parts of digestive tract; Z98.890 Other specified postprocedural states; Z88.1 Allergy status to other antibiotic agents; Z88.6 Allergy status to analgesic agent; Z79.82 Long term (current) use of aspirin; Z79.899 Other long term (current) drug therapy
CPT/HCPCS: 99284